=== PATIENT | male | born 1950 | race Caucasian/White ===

== ENCOUNTER 2016-12-14 09:29 | Emergency (ER) | payer MEDICARE ==
--- NOTE | 2016-12-14 09:44 | ERPHSYRPT ---
- History of Present Illness Time Seen by Provider: 12/14/16 09:44 Source: patient Exam Limitations: no limitations Physician History: 66 y/o male with history of downs syndrome, COPD and anemia comes to the ER with complaints of vomiting X 4 that started this morning. Pt had a difficult time sleeping last night and started vomiting this morning. Pt also was noted to have a low grade fever of 100. No abdominal pain, diarrhea or bloody stools. Pt has had UTIs in the past. Of note, patient arrived with an O2 sat of 90% on RA Timing/Duration: today Severity: moderate Associated Symptoms: nausea, vomiting Allergies/Adverse Reactions: No Known Drug Allergies Allergy (Verified 07/25/16 16:00) Home Medications: Albuterol 2.5 mg/0.5 ml [PROVENTIL Solution 2.5 MG/0.5 ML] 2.5 mg IH QID 01/30/15 [History] Aspirin 81 mg PO DAILY 01/30/15 [History] Budesonide 0.5 mg/2 ml [Pulmicort 0.5 mg/2 ml Respules] 0.5 mg IH BID 12/16 [History] Fluticasone Propionate [Flonase] 16 gm NS DAILY 01/30/15 [History] Ketoconazole [Nizoral] 120 ml TP WEEKLY 01/30/15 [History] Levetiracetam [Keppra] 1,000 mg PO BID 01/30/15 [History] Levothyroxine Sodium [Synthroid] 50 mcg PO DAILY 01/30/15 [History] Loratadine [Claritin] 10 mg PO DAILY 01/30/15 [History] Omeprazole [Prilosec] 20 mg PO DAILY 01/30/15 [History] Polyethylene Glycol 3350 17 gm [Miralax Powder 17GM PACKET] 17 gm PO DAILY [History] Quetiapine Fumarate 25 mg [Seroquel 25 MG] 25 mg PO HS 02/22/16 [History] Hx Tetanus, Diphtheria Vaccination/Date Given: Yes Hx Influenza Vaccination/Date Given: Yes Hx Pneumococcal Vaccination/Date Given: No - Review of Systems Constitutional: Fever, No Chills Eyes: No Symptoms Ears, Nose, & Throat: No Symptoms Respiratory: No Cough, No Dyspnea Cardiac: No Chest Pain, No Edema, No Syncope Abdominal/Gastrointestinal: Nausea, Vomiting, No Abdominal Pain, No Diarrhea Genitourinary Symptoms: No Dysuria Musculoskeletal: No Back Pain, No Neck Pain Skin: No Rash Neurological: No Dizziness, No Focal Weakness, No Sensory Changes Psychological: No Symptoms Endocrine: No Symptoms All Other Systems: Reviewed and Negative - Past Medical History Pertinent Past Medical History: Yes Neurological History: Dementia, Seizures, Other ENT History: No Pertinent History Cardiac History: Hypertension Respiratory History: COPD, Sleep Apnea Endocrine Medical History: Hypothyroidism Musculoskeletal History: No Pertinent History GI Medical History: GERD History: No Pertinent History Psycho-Social History: No Pertinent History Male Reproductive Disorders: No Pertinent History Other Medical History: ALLERGIES, Down Syndrome - Past Surgical History Past Surgical History: Yes Neuro Surgical History: No Pertinent History Cardiac: No Pertinent History Respiratory: No Pertinent History Gastrointestinal: No Pertinent History Genitourinary: No Pertinent History Musculoskeletal: No Pertinent History Male Surgical History: No Pertinent History Other Surgical History: TEETH REMOVED, toe growth removed, esophagus stretched - Social History Smoking Status: Never smoker Exposure to second hand smoke: No Drug Use: none Patient Lives Alone: No - Nursing Vital Signs Nursing Vital Signs: Initial Vital Signs Temperature 97.7 F Temperature Source Axillary Pulse Rate 88 Respiratory Rate 18 Blood Pressure 113/54 - Physical Exam General Appearance: no apparent distress, alert Eye Exam: PERRL/EOMI, eyes nml inspection Ears, Nose, Throat Exam: normal ENT inspection, TMs normal, pharynx normal, moist mucous membranes Neck Exam: normal inspection, non-tender, supple, full range of motion Respiratory Exam: normal breath sounds, lungs clear, No respiratory distress Cardiovascular Exam: regular rate/rhythm, normal heart sounds, normal peripheral pulses Gastrointestinal/Abdomen Exam: soft, normal bowel sounds, No tenderness, No mass Back Exam: normal inspection, normal range of motion, No CVA tenderness, No vertebral tenderness Extremity Exam: normal inspection, normal range of motion, pelvis stable Neurologic Exam: alert, cooperative, normal mood/affect, nml cerebellar function , nml station & gait, sensation nml, No motor deficits Skin Exam: normal color, warm, dry, No rash Lymphatic Exam: No adenopathy SpO2: 90 Ordered Tests: Active Orders 24 hr Category Date Time Status IV Insertion STAT Care 12/14/16 11:26 Active cath [Cath for Specimen-Straight] STAT Care 12/14/16 11:26 Active CHEST 2 VIEWS (PA AND LAT) Stat Exams 12/14/16 10:34 Completed KUB Stat Exams 12/14/16 10:02 Completed CBCD [CBC W DIFF] Stat Lab 12/14/16 11:20 Completed CMP Stat Lab 12/14/16 11:20 Completed INFLUENZA A+B Stat Lab 12/14/16 12:10 Completed Manual Differential NC Stat Lab 12/14/16 11:20 Completed UA W/RFX UR CULTURE Stat Lab 12/14/16 11:28 Completed Respiratory Nebulizer STAT RT 12/14/16 12:06 Completed Medication Summary Discontinued Medications Generic Name Dose Route Start Last Admin Trade Name Freq PRN Reason Stop Dose Admin Albuterol/Ipratropium 3 ml 12/14/16 12:06 12/14/16 12:24 Duoneb 0.5-3 Mg/3 Ml Neb IH 12/14/16 12:07 3 ml STAT ONE Administration Albuterol/Ipratropium Confirm 12/14/16 12:23 Duoneb 0.5-3 Mg/3 Ml Neb Administered 12/14/16 12:24 Dose 3 ml IH .STK-MED ONE Sodium Chloride 1,000 mls @ 999 mls/hr 12/14/16 10:02 12/14/16 11:23 Sodium Chloride 0.9% 1000 Ml IV 12/14/16 11:02 999 mls/hr .Q1H1M STA Administration Sodium Chloride Confirm 12/14/16 11:20 Sodium Chloride 0.9% 1000 Ml Administered 12/14/16 11:21 Dose 1,000 mls @ ud .ROUTE .STK-MED ONE Ondansetron HCl 4 mg 12/14/16 10:01 12/14/16 11:23 Zofran 4 Mg/2 Ml Vial IV 12/14/16 10:02 4 mg STAT ONE Administration Ondansetron HCl Confirm 12/14/16 11:20 Zofran 4 Mg/2 Ml Vial Administered 12/14/16 11:21 Dose 4 mg .ROUTE .STK-MED ONE Lab/Rad Data: Laboratory Result Diagrams 12/14/16 11:20 12/14/16 11:20 Laboratory Results 01/13/17 01/13/17 01/13/17 Range/Units 12:10 11:28 11:20 WBC (4.0-10.5) K/mm3 RBC (4.1-5.6) M/mm3 Hgb (12.5-18.0) gm/dl Hct (42-50) % MCV (78-100) fl MCH (26-32) pg MCHC (32-36) g/dl RDW (11.5-14.0) % Plt Count (150-450) K/mm3 MPV (6-9.5) fl Segmented Neutrophils (36.-66.) % Band Neutrophils (0.0-2.0) % Lymphocytes (Manual) (24-44) % Monocytes (Manual) (0.0-12.0) % Eosinophils (Manual) (0.00-3.0) % Basophils (Manual) (0.0-1.0) % Differential Comment Atypical Lymphocytes % Toxic Granulation Platelet Estimate (NORMAL) Anisocytosis Sodium 145 (136-145) mEq/L Potassium 3.6 (3.5-5.1) mEq/L Chloride 107 (98-107) mEq/L Carbon Dioxide 30.1 (21-32) mEq/L Anion Gap 11.1 (5-15) MEQ/L BUN 27 H (9-20) mg/dL Creatinine 1.71 H (0.55-1.30) mg/dl Estimated GFR 43 ML/MIN Glucose 95 (70-110) MG/DL Calcium 8.7 (8.5-10.1) mg/dL Total Bilirubin 0.5 (0.2-1.0) mg/dL AST 18 (15-37) U/L ALT 13 (12-78) U/L Alkaline Phosphatase 122 H (46-116) U/L Serum Total Protein 7.3 (6.4-8.2) gm/dL Albumin 3.1 L (3.4-5.0) g/dL Ur Collection Type VOID Urine Color YELLOW (YELLOW) Urine Appearance CLEAR (CLEAR) Urine pH 5.5 (5-6) Ur Specific [place] 1.015 (1.005-1.025) Urine Protein NEGATIVE (Negative) Urine Glucose (UA) NEGATIVE (NEGATIVE) mg/dL Urine Ketones NEGATIVE (NEGATIVE) Urine Nitrite NEGATIVE (NEGATIVE) Urine Bilirubin NEGATIVE (NEGATIVE) Urine Urobilinogen 0.2 (0-1) mg/dL Urine WBC (Auto) NEGATIVE (NEGATIVE) Urine RBC (Auto) NEGATIVE (0-5) Red/ul Influenza Type A Ag NEGATIVE (NEGATIVE) Influenza Type B Ag NEGATIVE (NEGATIVE) Specimen Received 12/14 1130 12/14/16 Range/Units 11:20 WBC 8.3 (4.0-10.5) K/mm3 RBC 4.30 (4.1-5.6) M/mm3 Hgb 13.8 (12.5-18.0) gm/dl Hct 41.7 L (42-50) % MCV 97.0 (78-100) fl MCH 32.1 H (26-32) pg MCHC 33.1 (32-36) g/dl RDW 14.2 H (11.5-14.0) % Plt Count 197 (150-450) K/mm3 MPV 9.3 (6-9.5) fl Segmented Neutrophils 36 (36.-66.) % Band Neutrophils 34 H (0.0-2.0) % Lymphocytes (Manual) 15 L (24-44) % Monocytes (Manual) 7 (0.0-12.0) % Eosinophils (Manual) 2 (0.00-3.0) % Basophils (Manual) 2 H (0.0-1.0) % Differential Comment ABNORMAL Atypical Lymphocytes 4 % Toxic Granulation 1+ Platelet Estimate NORMAL (NORMAL) Anisocytosis 1+ Sodium (136-145) mEq/L Potassium (3.5-5.1) mEq/L Chloride (98-107) mEq/L Carbon Dioxide (21-32) mEq/L Anion Gap (5-15) MEQ/L BUN (9-20) mg/dL Creatinine (0.55-1.30) mg/dl Estimated GFR ML/MIN Glucose (70-110) MG/DL Calcium (8.5-10.1) mg/dL Total Bilirubin (0.2-1.0) mg/dL AST (15-37) U/L ALT (12-78) U/L Alkaline Phosphatase (46-116) U/L Serum Total Protein (6.4-8.2) gm/dL Albumin (3.4-5.0) g/dL Ur Collection Type Urine Color (YELLOW) Urine Appearance (CLEAR) Urine pH (5-6) Ur Specific [place] (1.005-1.025) Urine Protein (Negative) Urine Glucose (UA) (NEGATIVE) mg/dL Urine Ketones (NEGATIVE) Urine Nitrite (NEGATIVE) Urine Bilirubin (NEGATIVE) Urine Urobilinogen (0-1) mg/dL Urine WBC (Auto) (NEGATIVE) Urine RBC (Auto) (0-5) Red/ul Influenza Type A Ag (NEGATIVE) Influenza Type B Ag (NEGATIVE) Specimen Received - Progress Progress: improved Progress Note: 12/14/16 12:04 Pt has received NS fluids and zofran with relief of symptoms. The BUN/Cr are elevated likely secondary to dehydration. The UA is normal. The CXR and KUB are unremarkable. Pt will get a swab swab and a duoneb prior to being discharged. 12/14/16 12:51 The influenza is negative. Pt will be d/c home on zofran ODT with a diagnosis of viral syndrome - Departure Time of Disposition: 12:52 Departure Disposition: Home Clinical Impression: Viral syndrome Condition: Stable Critical Care Time: No Instructions: Vomiting -- Adult, Viral Syndrome Additional Instructions: Return to the ER if you should have abdominal pain, nausea, vomiting, diarrhea, fever or chills. Prescriptions: Promethazine HCl 25 mg [Phenergan 25 mg] 25 mg PO Q6H PRN PRN #14 tablet PRN Reason: Nausea/Vomiting
[2016-12-14] MEDS ORDERED: Zofran 4 MG/2 ML VIAL IV ONE (10:01)
[2016-12-14] MEDS ORDERED: Sodium Chloride 0.9% 1000 ML 1,000 ML IV STA (10:02)
--- NOTE | 2016-12-14 10:35 | XRAY ---
Indication: Vomiting. Flu symptoms pain Comparison: April 12, 2011 KUB again demonstrates diffuse fecal stasis more than before without focal bowel dilatation or obstruction. Solid organs and lung bases unremarkable. Osseous structures intact with mild levoscoliosis.
--- NOTE | 2016-12-14 11:08 | XRAY ---
Indication: Low oxygenation. Comparison: September 18, 2016 AP/lateral chest less inflated today accentuating the cardiopulmonary structures. Again subtle right upper lung hazy airspace opacity without consolidation or large effusion. Heart is not enlarged. Bony thorax intact again with osteopenia and degenerative changes. Impression: Underinflated lungs with again right upper lung airspace disease.
[2016-12-14] MEDS ORDERED: Zofran 4 MG/2 ML VIAL ONE (11:20)
[2016-12-14] MEDS ORDERED: Sodium Chloride 0.9% 1000 ML 1,000 ML ONE (11:20)
[2016-12-14 11:25] LABS: Mean Corpuscular Hemoglobin 32.1 pg (26-32); Mean Platelet Volume 9.3 fl (6-9.5); Platelet Count 197 K/mm3 (150-450); Red Cell Distribution Width 14.2 % (11.5-14.0); White Blood Count 8.3 K/mm3 (4.0-10.5)
[2016-12-14 11:37] LABS: ADD URINE CULTURE? NO (NO); COMPLETE URINE MICROSCOPIC? NO; Collection Type VOID; Ph 5.5 (5-6)
[2016-12-14 11:46] LABS: ALBUMIN 3.1 g/dL (3.4-5.0); ANION GAP 11.1 MEQ/L (5-15); BILIRUBIN,TOTAL 0.5 mg/dL (0.2-1.0); Carbon Dioxide 30.1 mEq/L (21-32); Potassium 3.6 mEq/L (3.5-5.1); Total Protein 7.3 gm/dL (6.4-8.2)
[2016-12-14 11:55] LABS: ATYPICAL LYMPHS 4 %; BAND 34 % (0.0-2.0); Basophil 2 % (0.0-1.0); Eosinophil 2 % (0.00-3.0); Total Cells Counted 100
[2016-12-14 11:56] LABS: Platelet Estimate NORMAL (NORMAL)
[2016-12-14 11:57] LABS: ANISOCYTOSIS 1+; Toxic Granulation 1+
[2016-12-14] MEDS ORDERED: DUONEB 0.5-3 MG/3 ml Neb IH ONE ×2 (12:06→12:23)
[2016-12-14 12:56] VITALS: O2SAT 90
[2016-12-14 13:22] VITALS: BP 116/53; PULSE 72
== END 2016-12-14 13:22 | disposition home or self-care (01) ==
LOC: ED 09:29
DX: B34.9 Viral infection, unspecified (principal); R11.2 Nausea with vomiting, unspecified; R50.9 Fever, unspecified; F03.90 Unspecified dementia, unspecified severity, without behavioral disturbance, psychotic disturbance, mood disturbance, and anxiety; R56.9 Unspecified convulsions; I10 Essential (primary) hypertension; Z79.899 Other long term (current) drug therapy; E86.0 Dehydration; Q90.9 Down syndrome, unspecified
CPT/HCPCS: 96374; 99283; 36000; 96360; 36415; 85025; 80053; 87400; 81000; 71020; 74000; 94640; P9612; J2405

== ENCOUNTER 2017-09-25 13:20 | Emergency (ER) | payer MEDICARE ==
[2017-09-25] MEDS ORDERED: Sodium Chloride 0.9% 1000 ML 1,000 ML IV STA (13:44)
[2017-09-25] MEDS ORDERED: TYLENOL 325 MG PO ONE (13:47)
--- NOTE | 2017-09-25 13:56 | ERPHSYRPT ---
- History of Present Illness Time Seen by Provider: 09/25/17 13:51 Source: patient Exam Limitations: other (dementia, downs) Patient Subjective Stated Complaint: caregiver states pt had a seizure this morning and they are concerned because pt has diarrhea and fever since the seizure. pt has hx of down syndrome. Triage Nursing Assessment: pt pink, warm, dry. pt alert. abdomen soft. bowel sounds present in all 4 quads. Physician History: This is a 67-year-old white male with history of Down's, dementia, seizures, hypothyroidism, GERD. Patient was noted to have a seizure this morning at 9:15 AM lasting 2 minutes. Patient was also noted to have loose stools and a cough and a temperature at home. He arrives with a temperature of 101.6 rectally. He has not been vomiting. Patient does not speak to me nor does he move to command this is his normal state. Past medical history includes dementia, seizures, hypothyroidism, GERD, Down's syndrome. Past surgical history includes tonsils removed, bone growth removed, esophagus was stretched Timing/Duration: today (9:15 AM) Severity: moderate Modifying Factors: Improves With: nothing Associated Symptoms: cough, seizure (seizure times one this morning), other ( diarrhea today), No nausea, No vomiting, No abdominal pain, No shortness of breath, No heartburn, No diaphoresis, No chills, No chest pain, No fever, No headaches, No loss of appetite, No malaise, No rash, No syncope, No weakness Allergies/Adverse Reactions: No Known Drug Allergies Allergy (Verified 09/25/17 13:50) Home Medications: Albuterol 2.5 mg/0.5 ml [PROVENTIL Solution 2.5 MG/0.5 ML] 2.5 mg IH QID 01/30/15 [History] Aspirin 81 mg PO DAILY 01/30/15 [History] Budesonide 0.5 mg/2 ml [Pulmicort 0.5 mg/2 ml Respules] 0.5 mg IH BID 12/16 [History] Fluticasone Propionate [Flonase] 16 gm NS DAILY 01/30/15 [History] Ketoconazole [Nizoral] 120 ml TP WEEKLY 01/30/15 [History] Levetiracetam [Keppra] 1,000 mg PO BID 01/30/15 [History] Levothyroxine Sodium [Synthroid] 50 mcg PO DAILY 01/30/15 [History] Loratadine [Claritin] 10 mg PO DAILY 01/30/15 [History] Omeprazole [Prilosec] 20 mg PO DAILY 01/30/15 [History] Polyethylene Glycol 3350 17 gm [Miralax Powder 17GM PACKET] 17 gm PO DAILY [History] Quetiapine Fumarate 25 mg [Seroquel 25 MG] 100 mg PO HS 02/22/16 [History] Hx Tetanus, Diphtheria Vaccination/Date Given: Yes (up to date) Hx Influenza Vaccination/Date Given: No Hx Pneumococcal Vaccination/Date Given: No Immunizations Up to Date: Yes - Review of Systems Constitutional: Fever, No Chills, No Fatigue, No Lethargy, No Malaise, No Night Sweats, No Weakness, No Weight Loss Eyes: No Symptoms, No Discharge, No Eye Pain, No Eye Redness, No Itchy, No Photophobia, No Tearing, No Vision Changes, No Double Vision, No Foreign Body Sensation Ears, Nose, & Throat: No Symptoms, No Ear Pain, No Ear Discharge, No Hearing Changes, No Tinnitus, No Nose Pain, No Nose Congestion, No Nose Discharge, No Sinus Drainage, No Epistaxis, No Mouth Pain, No Mouth Swelling, No Loose Teeth, No Throat Pain, No Throat Swelling, No Hoarse, No Painful Swallowing, No Snoring , No Stridor Respiratory: Cough, No Cyanosis, No Dyspnea, No Dyspnea on Exertion (WOODARD), No Stridor, No Wheezing Cardiac: No Chest Pain, No Edema, No Syncope Abdominal/Gastrointestinal: Diarrhea, No Abdominal Pain, No Nausea, No Vomiting , No Constipation, No Hematemesis, No Hematochezia, No Melena, No Dysphagia, No Appetite Changes Genitourinary Symptoms: No Dysuria Musculoskeletal: No Back Pain, No Neck Pain Skin: No Rash Neurological: Seizure, No Dizziness, No Focal Weakness, No Gait Changes, No Headache, No Irritability, No Lethargy, No Paralysis, No Parasthesia, No Sensory Changes, No Speech Changes, No Tics, No Tremors, No Vertigo Psychological: No Symptoms Endocrine: No Symptoms All Other Systems: Reviewed and Negative - Past Medical History Pertinent Past Medical History: Yes Neurological History: Dementia, Seizures, Other ENT History: No Pertinent History Cardiac History: Hypertension Respiratory History: COPD, Sleep Apnea Endocrine Medical History: Hypothyroidism Musculoskeletal History: No Pertinent History GI Medical History: GERD History: No Pertinent History Psycho-Social History: No Pertinent History Male Reproductive Disorders: No Pertinent History Other Medical History: ALLERGIES, Down Syndrome - Past Surgical History Past Surgical History: Yes Neuro Surgical History: No Pertinent History Cardiac: No Pertinent History Respiratory: No Pertinent History Gastrointestinal: No Pertinent History Genitourinary: No Pertinent History Musculoskeletal: No Pertinent History Male Surgical History: No Pertinent History Other Surgical History: TEETH REMOVED, toe growth removed, esophagus stretched - Social History Smoking Status: Never smoker Exposure to second hand smoke: No Drug Use: none Patient Lives Alone: No - Nursing Vital Signs Nursing Vital Signs: Initial Vital Signs Temperature 101.6 F 09/25/17 13:20 Pulse Rate 104 H 09/25/17 13:20 Respiratory Rate 20 09/25/17 13:20 Blood Pressure 142/67 09/25/17 13:20 O2 Sat by Pulse Oximetry 90 L 09/25/17 13:20 Pain Scale Pain Intensity 0 - Physical Exam General Appearance: no apparent distress, alert Eye Exam: PERRL/EOMI, eyes nml inspection Ears, Nose, Throat Exam: normal ENT inspection, TMs normal, pharynx normal, moist mucous membranes Neck Exam: normal inspection, non-tender, supple, full range of motion Respiratory Exam: normal breath sounds, lungs clear, No respiratory distress Cardiovascular Exam: regular rate/rhythm, normal heart sounds, normal peripheral pulses Gastrointestinal/Abdomen Exam: soft, normal bowel sounds, No tenderness, No mass Back Exam: normal inspection, normal range of motion, No CVA tenderness, No vertebral tenderness Extremity Exam: normal inspection Neurologic Exam: alert, oriented x 3, cooperative, normal mood/affect, nml cerebellar function, nml station & gait, sensation nml, other (Patient chronically does not speak or move to command), No motor deficits Skin Exam: normal color, warm, dry, No rash Lymphatic Exam: No adenopathy SpO2 Interpretation: normal (90%) SpO2: 90 Oxygen Delivery: Room Air - Course Nursing assessment & vital signs reviewed: Yes - Radiology Exams Chest X-ray Interpretation: Discussed w/ radiologist (chest x-ray: Impression: 1. Mild patchy atelectasis and or infiltrate within the right infrahilar projection and retrocardiac region of the medial left lung base. Pneumonia is not excluded. 2. Other than a thin linear strand of scarring within the right mid lung field, the remainder of the lungs appear unremarkable. No other acute cardiopulmonary process is seen) Ordered Tests: Active Orders 24 hr Category Date Time Status Steam Box Operator STAT Care 09/25/17 13:43 Active Pulse Oximetry (ED) STAT Care 09/25/17 13:43 Active Saline Lock STAT Care 09/25/17 13:43 Active cath [Cath for Specimen-Straight] STAT Care 09/25/17 14:35 Active CHEST 1 VIEW (PORTABLE) Stat Exams 09/25/17 13:44 Taken BLOOD CULTURE Stat Lab 09/25/17 13:43 Received CBC W DIFF Stat Lab 09/25/17 13:55 Completed CMP Stat Lab 09/25/17 13:55 Completed CULTURE, THROAT Stat Lab 09/25/17 14:05 Received CULTURE,URINE Stat Lab 09/25/17 14:30 Received Lactic Acid Stat Lab 09/25/17 14:12 Completed PROTIME WITH INR Stat Lab 09/25/17 13:55 Completed PTT Stat Lab 09/25/17 13:55 Completed STREP SCREEN-BETA A Stat Lab 09/25/17 14:05 Completed UA Stat Lab 09/25/17 14:30 Completed Medication Summary Discontinued Medications Generic Name Dose Route Start Last Admin Trade Name Freq PRN Reason Stop Dose Admin Acetaminophen 650 mg 09/25/17 13:47 09/25/17 14:00 Tylenol 325 Mg PO 09/25/17 13:48 650 mg STAT ONE Administration Acetaminophen Confirm 09/25/17 14:04 Tylenol 325 Mg Administered 09/25/17 14:05 Dose 650 mg .ROUTE .STK-MED ONE Sodium Chloride 1,000 mls @ 999 mls/hr 09/25/17 13:44 09/25/17 14:09 Sodium Chloride 0.9% 1000 Ml IV 09/25/17 14:44 999 mls/hr .Q1H1M STA Administration Sodium Chloride Confirm 09/25/17 14:04 Sodium Chloride 0.9% 1000 Ml Administered 09/25/17 14:05 Dose 1,000 mls @ ud .ROUTE .STK-MED ONE Ceftriaxone Sodium/Dextrose 1 g in 50 mls @ 100 mls/hr 09/25/17 14:44 15:04 Rocephin 1 Gm-D5w 50 Ml Bag IV 09/25/17 15:13 100 mls/hr STAT STA Administration Ceftriaxone Sodium/Dextrose Confirm 09/25/17 14:57 Rocephin 1 Gm-D5w 50 Ml Bag Administered 09/25/17 14:58 Dose 1 g in 50 mls @ ud IV .STK-MED ONE Lab/Rad Data: Laboratory Result Diagrams 09/25/17 13:55 09/25/17 13:55 Laboratory Results 09/25/17 09/25/17 09/25/17 Range/Units 14:30 14:12 14:05 WBC (4.0-10.5) K/mm3 RBC (4.1-5.6) M/mm3 Hgb (12.5-18.0) gm/dl Hct (42-50) % MCV (78-100) fl MCH (26-32) pg MCHC (32-36) g/dl RDW (11.5-14.0) % Plt Count (150-450) K/mm3 MPV (6-9.5) fl Gran % (36.0-66.0) % Lymphocytes % (24.0-44.0) % Monocytes % (0.0-12.0) % Eosinophils % (0.00-5.0) % Basophils % (0.0-0.4) % Basophils # (0-0.4) INR (0.8-3.0) APTT (24.1-36.1) SECONDS Sodium (136-145) mEq/L Potassium (3.5-5.1) mEq/L Chloride (98-107) mEq/L Carbon Dioxide (21-32) mEq/L Anion Gap (5-15) MEQ/L BUN (9-20) mg/dL Creatinine (0.55-1.30) mg/dl Estimated GFR ML/MIN Glucose (70-110) MG/DL Lactic Acid 1.5 (0.4-2.0) Calcium (8.5-10.1) mg/dL Total Bilirubin (0.2-1.0) mg/dL AST (15-37) U/L ALT (12-78) U/L Alkaline Phosphatase (46-116) U/L Serum Total Protein (6.4-8.2) gm/dL Albumin (3.4-5.0) g/dL Ur Collection Type CATH Urine Color YELLOW (YELLOW) Urine Appearance CLEAR (CLEAR) Urine pH 7.0 (5-6) Ur Specific [place] 1.010 (1.005-1.025) Urine Protein NEGATIVE (Negative) Urine Ketones NEGATIVE (NEGATIVE) Urine Blood NEGATIVE (0-5) Red/ul Urine Nitrite NEGATIVE (NEGATIVE) Urine Bilirubin NEGATIVE (NEGATIVE) Urine Urobilinogen NORMAL (0-1) mg/dL Ur Leukocyte Esterase NEGATIVE (NEGATIVE) Urine Glucose NEGATIVE (NEGATIVE) mg/dL Influenza Type A Ag NEGATIVE (NEGATIVE) Influenza Type B Ag NEGATIVE (NEGATIVE) RSV (PCR) NEGATIVE (Negative) Streptococcus Screen (Negative) Specimen Received 09/25/17 1430 09/25/17 09/25/17 09/25/17 Range/Units 14:05 13:55 13:55 WBC (4.0-10.5) K/mm3 RBC (4.1-5.6) M/mm3 Hgb (12.5-18.0) gm/dl Hct (42-50) % MCV (78-100) fl MCH (26-32) pg MCHC (32-36) g/dl RDW (11.5-14.0) % Plt Count (150-450) K/mm3 MPV (6-9.5) fl Gran % (36.0-66.0) % Lymphocytes % (24.0-44.0) % Monocytes % (0.0-12.0) % Eosinophils % (0.00-5.0) % Basophils % (0.0-0.4) % Basophils # (0-0.4) INR 1.20 (0.8-3.0) APTT 33.6 (24.1-36.1) SECONDS Sodium 138 (136-145) mEq/L Potassium 3.8 (3.5-5.1) mEq/L Chloride 101 (98-107) mEq/L Carbon Dioxide 25.2 (21-32) mEq/L Anion Gap 15.4 H (5-15) MEQ/L BUN 17 (9-20) mg/dL Creatinine 1.42 H (0.55-1.30) mg/dl Estimated GFR 53 ML/MIN Glucose 114 H (70-110) MG/DL Lactic Acid (0.4-2.0) Calcium 8.6 (8.5-10.1) mg/dL Total Bilirubin 0.40 (0.2-1.0) mg/dL AST 21 (15-37) U/L ALT 18 (12-78) U/L Alkaline Phosphatase 165 H (46-116) U/L Serum Total Protein 8.6 H (6.4-8.2) gm/dL Albumin 3.4 (3.4-5.0) g/dL Ur Collection Type Urine Color (YELLOW) Urine Appearance (CLEAR) Urine pH (5-6) Ur Specific [place] (1.005-1.025) Urine Protein (Negative) Urine Ketones (NEGATIVE) Urine Blood (0-5) Red/ul Urine Nitrite (NEGATIVE) Urine Bilirubin (NEGATIVE) Urine Urobilinogen (0-1) mg/dL Ur Leukocyte Esterase (NEGATIVE) Urine Glucose (NEGATIVE) mg/dL Influenza Type A Ag (NEGATIVE) Influenza Type B Ag (NEGATIVE) RSV (PCR) (Negative) Streptococcus Screen NEGATIVE (Negative) Specimen Received 09/25/17 Range/Units 13:55 WBC 5.3 (4.0-10.5) K/mm3 RBC 4.73 (4.1-5.6) M/mm3 Hgb 15.1 (12.5-18.0) gm/dl Hct 44.9 (42-50) % MCV 94.9 (78-100) fl MCH 31.9 (26-32) pg MCHC 33.6 (32-36) g/dl RDW 13.4 (11.5-14.0) % Plt Count 151 (150-450) K/mm3 MPV 9.5 (6-9.5) fl Gran % 65.5 (36.0-66.0) % Lymphocytes % 16.6 L (24.0-44.0) % Monocytes % 17.1 H (0.0-12.0) % Eosinophils % 0.4 (0.00-5.0) % Basophils % 0.4 (0.0-0.4) % Basophils # 0.02 (0-0.4) INR (0.8-3.0) APTT (24.1-36.1) SECONDS Sodium (136-145) mEq/L Potassium (3.5-5.1) mEq/L Chloride (98-107) mEq/L Carbon Dioxide (21-32) mEq/L Anion Gap (5-15) MEQ/L BUN (9-20) mg/dL Creatinine (0.55-1.30) mg/dl Estimated GFR ML/MIN Glucose (70-110) MG/DL Lactic Acid (0.4-2.0) Calcium (8.5-10.1) mg/dL Total Bilirubin (0.2-1.0) mg/dL AST (15-37) U/L ALT (12-78) U/L Alkaline Phosphatase (46-116) U/L Serum Total Protein (6.4-8.2) gm/dL Albumin (3.4-5.0) g/dL Ur Collection Type Urine Color (YELLOW) Urine Appearance (CLEAR) Urine pH (5-6) Ur Specific [place] (1.005-1.025) Urine Protein (Negative) Urine Ketones (NEGATIVE) Urine Blood (0-5) Red/ul Urine Nitrite (NEGATIVE) Urine Bilirubin (NEGATIVE) Urine Urobilinogen (0-1) mg/dL Ur Leukocyte Esterase (NEGATIVE) Urine Glucose (NEGATIVE) mg/dL Influenza Type A Ag (NEGATIVE) Influenza Type B Ag (NEGATIVE) RSV (PCR) (Negative) Streptococcus Screen (Negative) Specimen Received - Progress Progress: improved Progress Note: 09/25/17 14:36 Septic screen is obtained on patient Lactate level is 1.5 white count 5.3 patient is not septic. Will await remaining labs patient has been given Tylenol IV fluids. 09/25/17 14:37 Patient is hemodynamically stable with a pulse ox ranging between 90-92% normal for him, blood pressure is stable. Patient with good capillary refill to extremities. 09/25/17 15:54 Patient looking markedly better after IV fluids Rocephin. Labs essentially normal. Awaiting official reading from radiologist for chest x-ray. Plan to discharge with Zithromax, Tylenol. - Departure Time of Disposition: 16:02 Departure Disposition: Home Clinical Impression: Bronchitis, Seizure Fever Qualifiers: Fever type: unspecified Qualified Code(s): R50.9 - Fever, unspecified Pneumonia Qualifiers: Pneumonia type: due to unspecified organism Laterality: bilateral Lung location : unspecified part of lung Qualified Code(s): J18.9 - Pneumonia, unspecified organism Condition: Fair Critical Care Time: No Referrals: GINNY STODDARD [Primary Care Provider] - Instructions: Fever (Symptom) -- Adult Additional Instructions: Return home. Plenty of fluids. Zithromax Z-TELLY as directed . Tylenol every 4 hours as needed for temperature greater than 100.5 Motrin every 6 hours as needed for temperature greater than 100.5. Follow-up with your family doctor. Return for acute distress or for severe symptoms. Prescriptions: Azithromycin 250 mg [Zithromax 250 MG TABLET] 250 mg PO ZPACK #6 tablet
[2017-09-25] MEDS ORDERED: TYLENOL 325 MG ONE (14:04)
[2017-09-25] MEDS ORDERED: Sodium Chloride 0.9% 1000 ML 1,000 ML ONE (14:04)
[2017-09-25 14:14] LABS: BASOPHIL % 0.4 % (0.0-0.4); Eosinophil % 0.4 % (0.00-5.0); Granulocytes % 65.5 % (36.0-66.0); Lymphocytes % 16.6 % (24.0-44.0); Mean Cell Volume 94.9 fl (78-100); Mean Corpuscular Hemoglobin 31.9 pg (26-32); Mean Platelet Volume 9.5 fl (6-9.5); Monocytes % 17.1 % (0.0-12.0); Platelet Count 151 K/mm3 (150-450); Red Blood Count 4.73 M/mm3 (4.1-5.6); Red Cell Distribution Width 13.4 % (11.5-14.0); White Blood Count 5.3 K/mm3 (4.0-10.5)
[2017-09-25 14:34] LABS: Bilirubin NEGATIVE (NEGATIVE); Blood NEGATIVE Ery/ul (0-5); COMPLETE URINE MICROSCOPIC? NO; Collection Type CATH; Glucose NEGATIVE (NEGATIVE); Leukocyte Esterase NEGATIVE (NEGATIVE)
[2017-09-25 14:44] LABS: ALBUMIN 3.4 g/dL (3.4-5.0); ANION GAP 15.4 MEQ/L (5-15); BILIRUBIN,TOTAL 0.4 mg/dL (0.2-1.0); Carbon Dioxide 25.2 mEq/L (21-32); Potassium 3.8 mEq/L (3.5-5.1); Total Protein 8.6 gm/dL (6.4-8.2)
[2017-09-25] MEDS ORDERED: ROCEPHIN 1 Gm-D5w 50 ml Bag** 1 G/50 ML IVPB IV STA (14:44)
[2017-09-25 14:45] LABS: INR 1.2 (0.8-3.0); PROTIME 13.4 SECONDS (8.83-12.87)
[2017-09-25 14:48] LABS: PTT 33.6 SECONDS (24.1-36.1)
[2017-09-25] MEDS ORDERED: ROCEPHIN 1 Gm-D5w 50 ml Bag** 1 G/50 ML IVPB IV ONE (14:57)
--- NOTE | 2017-09-25 15:57 | XRAY ---
Exam: AP upright portable chest film from 09/25/2017. Comparison: Two-view chest from 12/14/2016. Indication: Possible sepsis. Findings: The lungs are mildly hypoinflated. The transverse heart size appears within normal limits. There is mild subtle patchy retrocardiac and right infrahilar density which I believe represents atelectasis and/or infiltrate. I also note some minimal obliquely oriented linear scarring within the right midlung field extending medially to the right infrahilar projection. No vascular congestion, pneumothorax, or pleural fluid is seen. No acute osseous process is seen. Impression: 1. Mild patchy atelectasis and/or infiltrate within right infrahilar projection and retrocardiac region of medial left lung base. Pneumonia is not excluded. 2. Other than a thin linear strand of scarring within the right midlung field, the remainder of the lungs appears unremarkable. No other acute cardiopulmonary process is seen.
[2017-09-25 16:33] VITALS: BP 138/82; PULSE 77; O2SAT 95
== END 2017-09-25 16:32 | disposition home or self-care (01) ==
LOC: ED 13:20
DX: R50.9 Fever, unspecified (principal); J18.9 Pneumonia, unspecified organism; J40 Bronchitis, not specified as acute or chronic; R56.9 Unspecified convulsions; R19.7 Diarrhea, unspecified; Q90.9 Down syndrome, unspecified; E03.9 Hypothyroidism, unspecified; K21.9 Gastro-esophageal reflux disease without esophagitis; Z79.899 Other long term (current) drug therapy
CPT/HCPCS: 93041; 87040; 81002; 85610; 85730; 36415; 87430; 87070; 80177; 85025; 80053; 87086; 87631; 71010; 83605; P9612; 96360; 99284; J0696; A9270-GY

== ENCOUNTER 2018-01-02 07:02 | Observation (INO) | payer MEDICARE ==
[2018-01-02] MEDS ORDERED: PROVENTIL 2.5 MG/3 ML NEB IH ONE ×2 (07:26→07:31)
[2018-01-02] MEDS ORDERED: Sodium Chloride 0.9% 1000 ML 1,000 ML IV SCH (07:30)
--- NOTE | 2018-01-02 07:32 | ERPHSYRPT ---
- History of Present Illness Time Seen by Provider: 01/02/18 07:18 Source: family (niece) Patient Subjective Stated Complaint: caregiver states pt began running a fever and cough last pm. caregiver states she gave tylenol for fever last pm and tylenol at 0540 this morning. pt has down syndrome. Triage Nursing Assessment: pt pale, warm, dry. mouth dry. audible wheezes noted. Physician History: CC: fever Hx: 67 y/o mentally challenged man cared for at home by his niece. He has hx of COPD. 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 He has diarrhea. No vomiting. Decreased po intake. He is limited historian. Did not have flu vaccine. He has some wheezing and raspy breathing. 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: Acetaminophen Allergies/Adverse Reactions: No Known Drug Allergies Allergy (Verified 01/02/18 07:25) Home Medications: Albuterol 2.5 mg/0.5 ml [PROVENTIL Solution 2.5 MG/0.5 ML] 2.5 mg IH BID 01/30/15 [History] Aspirin 81 mg PO DAILY 01/30/15 [History] Budesonide 0.5 mg/2 ml [Pulmicort 0.5 mg/2 ml Respules] 0.5 mg IH BID 12/16 [History] Fluticasone Propionate [Flonase] 16 gm NS DAILY 01/30/15 [History] Ketoconazole [Nizoral] 120 ml TP WEEKLY 01/30/15 [History] Levetiracetam [Keppra] 1,000 mg PO BID 01/30/15 [History] Levothyroxine Sodium [Synthroid] 75 mcg PO DAILY 01/30/15 [History] Loratadine [Claritin] 10 mg PO DAILY 01/30/15 [History] Omeprazole [Prilosec] 20 mg PO DAILY 01/30/15 [History] Polyethylene Glycol 3350 17 gm [Miralax Powder 17GM PACKET] 17 gm PO DAILY [History] Quetiapine Fumarate 25 mg [Seroquel 25 MG] 25 mg PO HS 02/22/16 [History] Phenytoin Susp 125 mg/5 ml [Dilantin-125 SUSPENSION] 4 ml PO BID 01/02/18 [History] Hx Tetanus, Diphtheria Vaccination/Date Given: Yes (up to date) Hx Influenza Vaccination/Date Given: No Hx Pneumococcal Vaccination/Date Given: No Immunizations Up to Date: Yes - Review of Systems Constitutional: Fever, Fatigue, Malaise, Weakness Eyes: No Symptoms Respiratory: Cough, Wheezing Abdominal/Gastrointestinal: Diarrhea, No Vomiting Skin: No Rash All Other Systems: Unable due to condition - Past Medical History Pertinent Past Medical History: Yes Neurological History: Dementia, Seizures, Other ENT History: No Pertinent History Cardiac History: Hypertension Respiratory History: COPD, Sleep Apnea Endocrine Medical History: Hypothyroidism Musculoskeletal History: No Pertinent History GI Medical History: GERD History: No Pertinent History Psycho-Social History: No Pertinent History Male Reproductive Disorders: No Pertinent History Other Medical History: ALLERGIES, Down Syndrome - Past Surgical History Past Surgical History: Yes Neuro Surgical History: No Pertinent History Cardiac: No Pertinent History Respiratory: No Pertinent History Gastrointestinal: No Pertinent History Genitourinary: No Pertinent History Musculoskeletal: No Pertinent History Male Surgical History: No Pertinent History Other Surgical History: TEETH REMOVED, toe growth removed, esophagus stretched - Social History Smoking Status: Never smoker Exposure to second hand smoke: No Drug Use: none Patient Lives Alone: No (cared for at home by niece) - Nursing Vital Signs Nursing Vital Signs: Initial Vital Signs O2 Sat by Pulse Oximetry 99 01/02/18 07:05 - Physical Exam General Appearance: alert, other (dry mucous membranes) Eye Exam: PERRL/EOMI Neck Exam: supple Respiratory Exam: decreased breath sounds, rhonchi, wheezing Cardiovascular/Chest Exam: regular rate/rhythm Gastrointestinal/Abdominal Exam: soft, no distention Neurologic Exam: other (sleeping) Skin Exam: warm, dry, No rash SpO2 Interpretation: normal SpO2: 99 Oxygen Delivery: Room Air - Course Nursing assessment & vital signs reviewed: Yes - Radiology Exams cxr X-ray Interpretation: Teleradiologist Report, No Pneumonia Ordered Tests: Active Orders 24 hr Category Date Time Status Manager Of It STAT Care 01/02/18 07:25 Active IV Insertion STAT Care 01/02/18 07:25 Active Pulse Oximetry (ED) STAT Care 01/02/18 07:25 Active CHEST 1 VIEW (PORTABLE) Stat Exams 01/02/18 07:25 Completed BLOOD CULTURE Stat Lab 01/02/18 07:47 Received CBC W DIFF Stat Lab 01/02/18 07:47 Completed CMP Stat Lab 01/02/18 07:47 Completed CULTURE,URINE Stat Lab 01/02/18 07:25 Ordered DILANTIN(PHENYTOIN) Stat Lab 01/02/18 08:54 Ordered Lactic Acid Stat Lab 01/02/18 08:00 Completed PROTIME WITH INR Stat Lab 01/02/18 07:47 Completed PTT Stat Lab 01/02/18 07:47 Completed UA W/ MICROSCOPIC Stat Lab 01/02/18 07:25 Completed Respiratory Nebulizer STAT RT 01/02/18 07:26 Completed Medication Summary Generic Name Dose Route Start Last Admin Trade Name Freq PRN Reason Stop Dose Admin Sodium Chloride 1,000 mls @ 250 mls/hr 01/02/18 07:30 01/02/18 08:29 Sodium Chloride 0.9% 1000 Ml IV 02/01/18 07:29 250 mls/hr .Q4H KENDELL Administration Oseltamivir Phosphate 75 mg 01/02/18 10:00 Tamiflu 75mg Capsule PO 01/07/18 09:59 BID KENDELL Discontinued Medications Generic Name Dose Route Start Last Admin Trade Name Freq PRN Reason Stop Dose Admin Albuterol Sulfate 2.5 mg 01/02/18 07:26 01/02/18 07:47 Proventil 2.5 Mg/3 Ml Neb IH 01/02/18 07:27 2.5 mg STAT ONE Administration Albuterol Sulfate Confirm 01/02/18 07:31 Proventil 2.5 Mg/3 Ml Neb Administered 01/02/18 07:32 Dose 2.5 mg IH .STK-MED ONE Lab/Rad Data: Laboratory Result Diagrams 01/02/18 07:47 01/02/18 07:47 Laboratory Results 01/02/18 01/02/18 01/02/18 Range/Units 08:00 07:47 07:47 WBC (4.0-10.5) K/mm3 RBC (4.1-5.6) M/mm3 Hgb (12.5-18.0) gm/dl Hct (42-50) % MCV (78-100) fl MCH (26-32) pg MCHC (32-36) g/dl RDW (11.5-14.0) % Plt Count (150-450) K/mm3 MPV (6-9.5) fl Gran % (36.0-66.0) % Lymphocytes % (24.0-44.0) % Monocytes % (0.0-12.0) % Eosinophils % (0.00-5.0) % Basophils % (0.0-0.4) % Basophils # (0-0.4) INR 1.21 (0.8-3.0) APTT 35.1 (24.1-36.1) SECONDS Sodium 138 (136-145) mEq/L Potassium 3.7 (3.5-5.1) mEq/L Chloride 103 (98-107) mEq/L Carbon Dioxide 28.4 (21-32) mEq/L Anion Gap 10.4 (5-15) MEQ/L BUN 11 (9-20) mg/dL Creatinine 1.08 (0.55-1.30) mg/dl Estimated GFR > 60 ML/MIN Glucose 119 H (70-110) MG/DL Lactic Acid 1.2 (0.4-2.0) Calcium 8.5 (8.5-10.1) mg/dL Total Bilirubin 0.20 (0.2-1.0) mg/dL AST 38 H (15-37) U/L ALT 38 (12-78) U/L Alkaline Phosphatase 242 H (46-116) U/L Serum Total Protein 8.3 H (6.4-8.2) gm/dL Albumin 3.1 L (3.4-5.0) g/dL Ur Collection Type Urine Color (YELLOW) Urine Appearance (CLEAR) Urine pH (5-6) Ur Specific [place] (1.005-1.025) Urine Protein (Negative) Urine Ketones (NEGATIVE) Urine Blood (0-5) Red/ul Urine Nitrite (NEGATIVE) Urine Bilirubin (NEGATIVE) Urine Urobilinogen (0-1) mg/dL Ur Leukocyte Esterase (NEGATIVE) Urine Microscopic RBC (0-2) /HPF Urine Microscopic WBC (0-5) /HPF Ur Epithelial Cells (FEW) /HPF Urine Bacteria (NEGATIVE) /HPF Urine Glucose (NEGATIVE) mg/dL Influenza Type A Ag (NEGATIVE) Influenza Type B Ag (NEGATIVE) RSV (PCR) (Negative) Specimen Received 01/02/18 01/02/18 01/02/18 Range/Units 07:47 07:30 07:25 WBC 4.2 (4.0-10.5) K/mm3 RBC 4.49 (4.1-5.6) M/mm3 Hgb 14.2 (12.5-18.0) gm/dl Hct 42.3 (42-50) % MCV 94.2 (78-100) fl MCH 31.6 (26-32) pg MCHC 33.6 (32-36) g/dl RDW 13.6 (11.5-14.0) % Plt Count 221 (150-450) K/mm3 MPV 9.2 (6-9.5) fl Gran % 65.2 (36.0-66.0) % Lymphocytes % 16.7 L (24.0-44.0) % Monocytes % 14.8 H (0.0-12.0) % Eosinophils % 1.9 (0.00-5.0) % Basophils % 1.4 (0.0-0.4) % Basophils # 0.06 (0-0.4) INR (0.8-3.0) APTT (24.1-36.1) SECONDS Sodium (136-145) mEq/L Potassium (3.5-5.1) mEq/L Chloride (98-107) mEq/L Carbon Dioxide (21-32) mEq/L Anion Gap (5-15) MEQ/L BUN (9-20) mg/dL Creatinine (0.55-1.30) mg/dl Estimated GFR ML/MIN Glucose (70-110) MG/DL Lactic Acid (0.4-2.0) Calcium (8.5-10.1) mg/dL Total Bilirubin (0.2-1.0) mg/dL AST (15-37) U/L ALT (12-78) U/L Alkaline Phosphatase (46-116) U/L Serum Total Protein (6.4-8.2) gm/dL Albumin (3.4-5.0) g/dL Ur Collection Type VOID Urine Color STRAW (YELLOW) Urine Appearance CLEAR (CLEAR) Urine pH 7.0 (5-6) Ur Specific [place] 1.005 (1.005-1.025) Urine Protein 1+ (Negative) Urine Ketones NEGATIVE (NEGATIVE) Urine Blood 50 (0-5) Red/ul Urine Nitrite NEGATIVE (NEGATIVE) Urine Bilirubin NEGATIVE (NEGATIVE) Urine Urobilinogen NORMAL (0-1) mg/dL Ur Leukocyte Esterase 2+ (NEGATIVE) Urine Microscopic RBC 5-10 (0-2) /HPF Urine Microscopic WBC 50-100 (0-5) /HPF Ur Epithelial Cells MODERATE (FEW) /HPF Urine Bacteria FEW (NEGATIVE) /HPF Urine Glucose NEGATIVE (NEGATIVE) mg/dL Influenza Type A Ag NEGATIVE (NEGATIVE) Influenza Type B Ag POSITIVE (NEGATIVE) RSV (PCR) NEGATIVE (Negative) Specimen Received 01/02 845 - Progress Progress Note: 01/02/18 08:57 He is dehydrated and won't take po. HE has hx of Downs and progressive dementia. Niece does not feel like he will drink at home. Called Dr Mata (oc) and will place in obs. Discussed with : Esperanza ((oc)) Will see patient in: hospital (observation) Counseled pt/family regarding: lab results, diagnosis, need for follow-up, rad results - Departure Time of Disposition: 08:58 Departure Disposition: Observation Clinical Impression: Dehydration, Influenza B, Down syndrome, COPD (chronic obstructive pulmonary disease) Condition: Fair Critical Care Time: No Referrals: GINNY STODDARD [Primary Care Provider] - Instructions: Chronic Obstructive Pulmonary Disease
[2018-01-02 07:57] LABS: BASOPHIL % 1.4 % (0.0-0.4); Basophil (Absolute #) 0.06 (0-0.4); Eosinophil % 1.9 % (0.00-5.0); Eosinophil (Absolute #) 0.08 (0-0.5); Granulocyte Absolute (ANC) 2.72 (1.4-6.9); Granulocytes % 65.2 % (36.0-66.0); Hematocrit 42.3 % (42-50); Hemoglobin 14.2 gm/dl (12.5-18.0); Lymphocytes % 16.7 % (24.0-44.0); Mean Cell Volume 94.2 fl (78-100); Mean Corpuscular Hemoglobin 31.6 pg (26-32); Mean Corpuscular Hgb Concent. 33.6 g/dl (32-36); Mean Platelet Volume 9.2 fl (6-9.5); Monocyte (Absolute #) 0.62 (0.0-1.3); Monocytes % 14.8 % (0.0-12.0); Platelet Count 221 K/mm3 (150-450); Red Blood Count 4.49 M/mm3 (4.1-5.6); Red Cell Distribution Width 13.6 % (11.5-14.0); White Blood Count 4.2 K/mm3 (4.0-10.5)
[2018-01-02 08:11] LABS: INR 1.21 (0.8-3.0)
[2018-01-02 08:14] LABS: PTT 35.1 SECONDS (24.1-36.1)
[2018-01-02 08:22] LABS: ALBUMIN 3.1 g/dL (3.4-5.0); ALKALINE PHOSPHATASE 242 U/L (46-116); ANION GAP 10.4 MEQ/L (5-15); BLOOD UREA NITROGEN 11 mg/dL (9-20); CHLORIDE 103 mEq/L (98-107); Calcium 8.5 mg/dL (8.5-10.1); Carbon Dioxide 28.4 mEq/L (21-32); Creatinine 1 1.08 mg/dl (0.55-1.30); EST GLOMERULAR FILTRATION RATE > 60 ML/MIN; Glucose 119 MG/DL (70-110); Potassium 3.7 mEq/L (3.5-5.1); SGOT/AST 38 U/L (15-37); SGPT/ALT 38 U/L (12-78); SODIUM 138 mEq/L (136-145); Total Protein 8.3 gm/dL (6.4-8.2)
[2018-01-02 08:34] LABS: INFLUENZA A NEGATIVE (NEGATIVE)
[2018-01-02 08:35] LABS: INFLUENZA B POSITIVE (NEGATIVE); RESPIRATORY SYNCTIAL VIRUS NEGATIVE (Negative)
--- NOTE | 2018-01-02 08:49 | XRAY ---
Indication: Possible sepsis. Comparison: September 25, 2017. Portable chest unchanged again with prominent interstitial lung markings bilaterally greatest near the lung bases. No focal infiltrate, consolidation, or large effusion. Heart is not enlarged. Bony thorax intact. Impression: Stable nonacute underinflated chest.
[2018-01-02 08:54] LABS: Appearance CLEAR (CLEAR); Bacteria FEW /HPF (NEGATIVE); Bilirubin NEGATIVE (NEGATIVE); Blood 50 Ery/ul (0-5); Epithelial Cells MODERATE /HPF (FEW); Glucose NEGATIVE (NEGATIVE); Ketones NEGATIVE (NEGATIVE); Leukocyte Esterase 2+ (NEGATIVE); Nitrite NEGATIVE (NEGATIVE); Protein,Urine Dip 1+ (Negative); Specific Gravity 1.005 (1.005-1.025); Urobilinogen NORMAL mg/dL (0-1); WBC 50-100 /HPF (0-5)
[2018-01-02] MEDS ORDERED: ROCEPHIN 1 Gm-D5w 50 ml Bag** 1 G/50 ML IVPB IV STA (09:03)
[2018-01-02] MEDS ORDERED: ROCEPHIN 1 Gm-D5w 50 ml Bag** 1 G/50 ML IVPB IV ONE (09:09)
[2018-01-02] MEDS: Tamiflu 75MG Capsule PO SCH ×2 (09:12→21:26)
[2018-01-02] MEDS: DUONEB 0.5-3 MG/3 ml Neb IH SCH ×4 (10:36→23:57)
[2018-01-02] MEDS: PULMICORT 0.5 MG/2 ML RESPULES IH SCH ×3 (10:36→20:32)
[2018-01-02] MEDS: D5W/0.45NS W/ 20mEq KCl 1000 ML 1,000 ML IV SCH ×2 (12:25→21:27)
[2018-01-02] MEDS ORDERED: Ativan 2 MG/1 ML VIAL IV PRN (15:30)
[2018-01-02] MEDS ORDERED: PATIENT OWN MEDICATION PO ONE (16:00)
--- NOTE | 2018-01-02 20:15 | PCM.HP ---
History of Present Illness - Chief Complaint Chief Complaint: + flu B History of Present Illness: is a 67 year old male. - Review of Systems Constitutional: Fever, Weakness Respiratory: Cough Abdominal/Gastrointestinal: Appetite Changes All Other Systems: Unable due to dementia (and pt nonverbal) Medications & Allergies Home Medications: Home Medication List Albuterol 2.5 mg/0.5 ml [PROVENTIL Solution 2.5 MG/0.5 ML] 2.5 mg IH BID 01/30/15 [History Confirmed 01/02/18] Aspirin 81 mg PO DAILY 01/30/15 [History Confirmed 01/02/18] Budesonide 0.5 mg/2 ml [Pulmicort 0.5 mg/2 ml Respules] 0.5 mg IH BID 12/16 [History Confirmed 01/02/18] Fluticasone Propionate [Flonase] 16 gm NS DAILY 01/30/15 [History Confirmed 12/19] Ketoconazole [Nizoral] 120 ml TP WEEKLY 01/30/15 [History Confirmed 01/02/18] Levetiracetam [Keppra] 1,000 mg PO BID 01/30/15 [History Confirmed 01/02/18] Levothyroxine Sodium [Synthroid] 75 mcg PO DAILY 01/30/15 [History Confirmed 12/19] Loratadine [Claritin] 10 mg PO DAILY 01/30/15 [History Confirmed 01/02/18] Omeprazole [Prilosec] 20 mg PO DAILY 01/30/15 [History Confirmed 01/02/18] Polyethylene Glycol 3350 17 gm [Miralax Powder 17GM PACKET] 17 gm PO DAILY [History Confirmed 01/02/18] Quetiapine Fumarate 25 mg [Seroquel 25 MG] 25 mg PO HS 02/22/16 [History Confirmed 01/02/18] Phenytoin Susp 125 mg/5 ml [Dilantin-125 SUSPENSION] 4 ml PO BID 01/02/18 [History Confirmed 01/02/18] Allergies/Adverse Reactions: Allergies Allergy/AdvReac Type Severity Reaction Status Date / Time No Known Drug Allergies Allergy Verified 01/02/18 07:25 - Past Medical History Past Medical History: Yes Neurological History: Dementia, Seizures, Other ENT History: No Pertinent History Cardiac History: Hypertension Respiratory History: COPD, Sleep Apnea Endocrine Medical History: Hypothyroidism Musculoskelatal History: No Pertinent History GI Medical History: GERD History: No Pertinent History Pyscho-Social History: No Pertinent History Male Reproductive Disorders: No Pertinent History Comment: ALLERGIES, Down Syndrome - Past Surgical History Past Surgical History: Yes Neuro Surgical History: No Pertinent History Cardiac History: No Pertinent History Respiratory Surgery: No Pertinent History GI Surgical History: No Pertinent History Genitourinary Surgical Hx: No Pertinent History Musculskeletal Surgical Hx: No Pertinent History Male Surgical History: No Pertinent History Other Surgical History: TEETH REMOVED, toe growth removed, esophagus stretched - Social History Smoking Status: Never smoker Exposure to second hand smoke: No Alcohol: None Drug Use: none - Physical Exam Vital Signs: Vital Signs - 24 hr Temp Pulse Resp BP Pulse Ox 01/02/18 20:00 98.4 F 75 17 142/64 94 L 01/02/18 16:00 97.9 F 67 18 98/53 97 01/02/18 15:25 60 20 97 01/02/18 10:41 62 18 94 L 01/02/18 10:34 99.5 F 67 20 135/60 92 L 01/02/18 09:58 99.5 F 67 135/60 01/02/18 09:56 99.5 F 67 20 135/60 92 L 01/02/18 09:47 99.5 F 67 20 135/60 92 L 01/02/18 09:17 68 18 98/49 01/02/18 08:59 99 01/02/18 08:05 67 20 121/67 01/02/18 07:52 73 18 97 01/02/18 07:14 75 24 127/62 99 01/02/18 07:05 99 General Appearance: no apparent distress, alert Neurologic Exam: other (seems slightly afraid of me during exam) Eye Exam: eyes nml inspection (Down's) Ears, Nose, Throat Exam: moist mucous membranes Respiratory Exam: diminished breath sounds, wheezing (slight LLL wheeze), No crackles/rales, No rhonchi Cardiovascular Exam: regular rate/rhythm, normal heart sounds, No murmur Gastrointestinal/Abdomen Exam: soft, No tenderness Back Exam: normal inspection, No rash Results - Labs Lab/Micro Results: Lab Results-Last 24 Hours 01/02/18 Range/Units 10:54 Prealbumin 17.3 L (18.0-35.7) mg/dL - Other Procedures and Tests Respiratory Therapy 01/02/18 11:00 Respiratory Nebulizer Q4H 01/02/18 19:00 Respiratory Nebulizer BID Assessment/Plan (1) UTI (urinary tract infection) Current Visit: Yes Status: Acute Assessment & Plan: On IV rocephin Code(s): N39.0 - URINARY TRACT INFECTION, SITE NOT SPECIFIED (2) Dehydration Current Visit: Yes Status: Acute Assessment & Plan: improved; urinated x 1 Code(s): E86.0 - DEHYDRATION (3) Down syndrome Current Visit: Yes Status: Chronic Code(s): Q90.9 - DOWN SYNDROME, UNSPECIFIED (4) Influenza B Current Visit: Yes Status: Acute Assessment & Plan: on tamiflu. sl wheezy Code(s): J10.1 - FLU DUE TO OTH IDENT INFLUENZA VIRUS W OTH RESP MANIFEST (5) COPD (chronic obstructive pulmonary disease) Current Visit: Yes Status: Chronic (6) History of seizure disorder Current Visit: No Status: Chronic Assessment & Plan: some partial sz here; gave 500mg keppra extra this p.m. dilantin level ok Code(s): Z86.69 - PERSONAL HISTORY OF DIS OF THE NERVOUS SYS AND SENSE ORGANS
[2018-01-02] MEDS: Seroquel 25 MG PO SCH (21:26)
[2018-01-02] MEDS: DILANTIN PO SCH (21:26)
[2018-01-02] MEDS: PATIENT OWN MEDICATION PO SCH (21:27)
[2018-01-02] MEDS ORDERED: KEPPRA 500 MG PO SCH (22:00)
[2018-01-02] MEDS ORDERED: PROVENTIL Solution 2.5 MG/0.5 ML IH PRN (22:00)
[2018-01-02] MEDS ORDERED: LEVETIRACETAM 1000 MG PO SCH (22:00)
[2018-01-03] MEDS: TYLENOL 325 MG PO PRN ×2 (01:12→19:49)
[2018-01-03] MEDS: DUONEB 0.5-3 MG/3 ml Neb IH SCH ×6 (03:40→23:40)
[2018-01-03] MEDS: D5W/0.45NS W/ 20mEq KCl 1000 ML 1,000 ML IV SCH ×3 (05:38→21:25)
[2018-01-03 06:21] LABS: ANION GAP 9.8 MEQ/L (5-15); BLOOD UREA NITROGEN 8 mg/dL (9-20); CHLORIDE 107 mEq/L (98-107); Calcium 8.2 mg/dL (8.5-10.1); Creatinine 1 0.99 mg/dl (0.55-1.30); EST GLOMERULAR FILTRATION RATE > 60 ML/MIN; Glucose 93 MG/DL (70-110); Potassium 4.2 mEq/L (3.5-5.1); SODIUM 140 mEq/L (136-145)
[2018-01-03] MEDS: PULMICORT 0.5 MG/2 ML RESPULES IH SCH (07:20)
--- NOTE | 2018-01-03 09:20 | PCM.NOTE ---
Date and Time: 01/03/18915 Subjective Assessment: He appears to be feeling better. Told Respiratory to get out this morning! Eating fairly well. AFebrile overnight. Objective Exam General Appearance: no apparent distress, alert Neurologic Exam: other (MR/non verbal) Skin Exam: normal color, warm, dry, No rash Respiratory Exam: lungs clear, diminished breath sounds, No crackles/rales, No rhonchi, No wheezing Cardiovascular Exam: regular rate/rhythm, normal heart sounds, No murmur Gastrointestinal/Abdomen Exam: soft, normal bowel sounds, No tenderness Extremity Exam: normal inspection, No pedal edema, No swelling OBJECTIVE DATA Vital Signs: Vital Signs - 24 hr Temp Pulse Resp BP Pulse Ox 01/03/18 08:00 97.6 F 65 18 186/72 97 01/03/18 07:20 72 18 01/03/18 06:16 98.2 F 01/03/18 04:00 98.2 F 55 L 18 113/57 98 01/03/18 03:25 55 L 16 94 L 01/03/18 03:20 55 L 18 94 L 01/03/18 00:00 99.2 F 71 20 140/89 94 L 01/02/18 23:30 70 18 96 01/02/18 20:00 98.4 F 69 17 142/64 97 01/02/18 16:00 97.9 F 67 18 98/53 97 01/02/18 15:25 60 20 97 01/02/18 10:41 62 18 94 L 01/02/18 10:34 99.5 F 67 20 135/60 92 L 01/02/18 09:58 99.5 F 67 135/60 01/02/18 09:56 99.5 F 67 20 135/60 92 L 01/02/18 09:47 99.5 F 67 20 135/60 92 L 01/02/18 09:17 68 18 98/49 Pain Assessment - Last Documented Pain Intensity 0 Pain Scale Used [facility] Intake and Output: Intake & Output 12/31/17 01/01/18 01/02/18 01/03/18 11:59 11:59 11:59 11:59 Intake Total 2930 Output Total 575 Balance 2355 Weight 49 kg 51.1 kg Lab Results: Lab Results-Last 24 Hours 01/02/18 01/03/18 Range/Units 10:54 05:40 Sodium 140 (136-145) mEq/L Potassium 4.2 (3.5-5.1) mEq/L Chloride 107 (98-107) mEq/L Carbon Dioxide 27.0 (21-32) mEq/L Anion Gap 9.8 (5-15) MEQ/L BUN 8 L (9-20) mg/dL Creatinine 0.99 (0.55-1.30) mg/dl Estimated GFR > 60 ML/MIN Glucose 93 (70-110) MG/DL Calcium 8.2 L (8.5-10.1) mg/dL Prealbumin 17.3 L (18.0-35.7) mg/dL Assessment/Plan (1) UTI (urinary tract infection) Current Visit: Yes Status: Acute Qualifiers: Urinary tract infection type: acute cystitis Assessment & Plan: On IV rocephin Code(s): N39.0 - URINARY TRACT INFECTION, SITE NOT SPECIFIED (2) Dehydration Current Visit: Yes Status: Resolved Code(s): E86.0 - DEHYDRATION (3) Down syndrome Current Visit: Yes Status: Chronic Code(s): Q90.9 - DOWN SYNDROME, UNSPECIFIED (4) Influenza B Current Visit: Yes Status: Acute Assessment & Plan: On tamiflu Code(s): J10.1 - FLU DUE TO OTH IDENT INFLUENZA VIRUS W OTH RESP MANIFEST (5) COPD (chronic obstructive pulmonary disease) Current Visit: Yes Status: Chronic Qualifiers: COPD type: chronic bronchitis (6) History of seizure disorder Current Visit: No Status: Chronic Assessment & Plan: Had a few seizures when admitted, stable now. Dilantin level was just over 10. Added an extra dose of keppra yesterday, but back to home dosing today. He did have large seizures in Oct/Nov and the dilantin was added at that time. Code(s): Z86.69 - PERSONAL HISTORY OF DIS OF THE NERVOUS SYS AND SENSE ORGANS (7) Leukopenia Current Visit: Yes Status: Acute Assessment & Plan: On admission WBC were 4.2, now 1.6 so pt put in reverse isolation. Could be from the flu virus. Recheck in a.m. Code(s): D72.819 - DECREASED WHITE BLOOD CELL COUNT, UNSPECIFIED
[2018-01-03] MEDS: Tamiflu 75MG Capsule PO SCH ×2 (10:00→21:14)
[2018-01-03] MEDS: ROCEPHIN 1 Gm-D5w 50 ml Bag** 1 G/50 ML IVPB IV SCH (10:00)
[2018-01-03] MEDS: Flonase NASAL NS SCH (10:00)
[2018-01-03] MEDS ORDERED: NON-FORMULARY ITEM (Loratadine [Claritin] 10 MG) PO SCH (10:00)
[2018-01-03] MEDS: SYNTHROID 75 MCG PO SCH (10:00)
[2018-01-03] MEDS: Miralax Powder 17GM PACKET PO SCH (10:00)
[2018-01-03] MEDS: PATIENT OWN MEDICATION PO SCH ×2 (10:00→21:13)
[2018-01-03] MEDS ORDERED: SYNTHROID 100 MCG PO SCH (10:00)
[2018-01-03] MEDS: Protonix 40MG Tablet PO SCH (10:00)
[2018-01-03] MEDS ORDERED: NON-FORMULARY ITEM (Aspirin [Aspirin] 81 MG) PO SCH (10:00)
[2018-01-03] MEDS ORDERED: NON-FORMULARY ITEM (Omeprazole [Prilosec] 20 MG) PO SCH (10:00)
[2018-01-03] MEDS: DILANTIN PO SCH ×2 (11:00→21:11)
[2018-01-03] MEDS: CLARITIN 10 MG PO SCH (11:00)
[2018-01-03] MEDS: ENOXAPARIN SODIUM SQ SCH (13:06)
[2018-01-03] MEDS: ECOTRIN 81 MG PO SCH (13:14)
[2018-01-03 13:52] LABS: Slide Review NO
[2018-01-03] MEDS: Seroquel 25 MG PO SCH (21:14)
[2018-01-04] MEDS: DUONEB 0.5-3 MG/3 ml Neb IH SCH ×3 (04:20→11:15)
[2018-01-04 06:02] LABS: Granulocyte Absolute (ANC) 0.55 (1.4-6.9); Hematocrit 38.4 % (42-50); Hemoglobin 12.5 gm/dl (12.5-18.0); Mean Cell Volume 95.8 fl (78-100); Mean Corpuscular Hgb Concent. 32.6 g/dl (32-36); Mean Platelet Volume 9.5 fl (6-9.5); Platelet Count 148 K/mm3 (150-450); Red Blood Count 4.01 M/mm3 (4.1-5.6); Red Cell Distribution Width 13.9 % (11.5-14.0); White Blood Count 2.2 K/mm3 (4.0-10.5)
[2018-01-04 06:21] LABS: Mean Corpuscular Hemoglobin 31.1 pg (26-32)
[2018-01-04 06:46] LABS: ANION GAP 11.5 MEQ/L (5-15); BLOOD UREA NITROGEN 5 mg/dL (9-20); CHLORIDE 106 mEq/L (98-107); Calcium 8.3 mg/dL (8.5-10.1); Carbon Dioxide 26.8 mEq/L (21-32); Creatinine 1 0.92 mg/dl (0.55-1.30); EST GLOMERULAR FILTRATION RATE > 60 ML/MIN; Glucose 112 MG/DL (70-110); SODIUM 139 mEq/L (136-145)
[2018-01-04 06:54] LABS: BAND 2 % (0.0-2.0); Basophil 1 % (0.0-1.0); Eosinophil 1 % (0.00-3.0); Lymphocytes 54 % (24-44); Monocyte 12 % (0.0-12.0); Neutrophils 30 % (36.-66.); Platelet Estimate NORMAL (NORMAL); Total Cells Counted 100
[2018-01-04] MEDS: D5W/0.45NS W/ 20mEq KCl 1000 ML 1,000 ML IV SCH (07:20)
[2018-01-04 07:28] VITALS: BP 156/78
[2018-01-04] MEDS: PULMICORT 0.5 MG/2 ML RESPULES IH SCH (07:42)
[2018-01-04 08:27] VITALS: O2SAT 95
[2018-01-04] MEDS: ENOXAPARIN SODIUM SQ SCH (10:20)
[2018-01-04] MEDS: Protonix 40MG Tablet PO SCH (10:20)
[2018-01-04] MEDS: ECOTRIN 81 MG PO SCH (10:20)
[2018-01-04] MEDS: ROCEPHIN 1 Gm-D5w 50 ml Bag** 1 G/50 ML IVPB IV SCH (10:20)
[2018-01-04] MEDS: PATIENT OWN MEDICATION PO SCH (10:20)
[2018-01-04] MEDS: SYNTHROID 75 MCG PO SCH (10:20)
[2018-01-04] MEDS: CLARITIN 10 MG PO SCH (10:20)
[2018-01-04] MEDS: DILANTIN PO SCH (10:20)
[2018-01-04] MEDS: Miralax Powder 17GM PACKET PO SCH (11:23)
[2018-01-04] MEDS: Flonase NASAL NS SCH (11:23)
[2018-01-04] MEDS: Tamiflu 75MG Capsule PO SCH (11:28)
[2018-01-04 11:46] VITALS: PULSE 65
--- NOTE | 2018-01-04 11:50 | PCM.DCORD ---
- Discharge Discharge Date: 01/04/18 Disposition: HOME HEALTH SERVICE Condition: Good Prescriptions: New Oseltamivir 75 mg [Tamiflu 75MG Capsule] 75 mg PO BID 3 Days #5 cap Continue Budesonide 0.5 mg/2 ml [Pulmicort 0.5 mg/2 ml Respules] 0.5 mg IH BID Albuterol 2.5 mg/0.5 ml [PROVENTIL Solution 2.5 MG/0.5 ML] 2.5 mg IH BID Fluticasone Propionate [Flonase] 16 gm NS DAILY Polyethylene Glycol 3350 17 gm [Miralax Powder 17GM PACKET] 17 gm PO DAILY Aspirin 81 mg PO DAILY Omeprazole [Prilosec] 20 mg PO DAILY Loratadine [Claritin] 10 mg PO DAILY Levothyroxine Sodium [Synthroid] 75 mcg PO DAILY Levetiracetam [Keppra] 1,000 mg PO BID Ketoconazole [Nizoral] 120 ml TP WEEKLY Quetiapine Fumarate 25 mg [Seroquel 25 MG] 25 mg PO HS Phenytoin Susp 125 mg/5 ml [Dilantin-125 SUSPENSION] 4 ml PO BID Instructions: Chronic Obstructive Pulmonary Disease Additional Instructions: Obtain CBC with diff prior to follow up appointment with Dr Somers Follow up with: GINNY SOMERS [Primary Care Provider] - Call for Appointment FRANCE ARZATE [ACTIVE STAFF] - 01/09/18 11:15 am
--- NOTE | 2018-01-07 09:09 | SSS ---
DISCHARGE DIAGNOSES: 1) INFLUENZA B. 2) DEHYDRATION. 3) DOWN SYNDROME. HISTORY OF PRESENT ILLNESS: The patient is a 67 year-old white male who apparently began having a fever and having a cough. He was brought into the emergency room and diagnosed with influenza B. He was admitted to the hospital for IV fluid hydration. PAST MEDICAL/SURGICAL HISTORY: Again significant for the Down's syndrome. He has history of seizures, hypothyroid, dementia. HOME MEDICATIONS: Currently include Albuterol, aspirin, Pulmicort, fluticasone, ketoconazole, Keppra, levothyroxine, Claritin, Prilosec, MiraLAX, Seroquel, Dilantin. ALLERGIES: NKDA. PHYSICAL EXAMINATION: Revealed a mildly obese white male patient with neurologic deficits due to Down syndrome. His most recent vital signs showed temperature 98.4F, pulse 73, respiratory rate 22, blood pressure 149/65. O2 saturation 95% on room air. HEENT: Normocephalic, atraumatic. Pupils equal round reactive to light. Extraocular movements intact. Oropharynx is pink and moist. NECK: Supple without lymphadenopathy, thyromegaly or JVD. CHEST: Clear to auscultation. HEART: Regular rate and rhythm without murmurs, rubs or gallops. ABDOMEN: Soft, nontender, nondistended without hepatosplenomegaly or masses. EXTREMITIES: Without clubbing, cyanosis or edema. NEUROLOGIC: No obvious focal deficits are noted. His caregiver was by the bedside with him at this time. LAB DATA AND TESTS: Showed his white blood cell count drop to 1,600 and rebounded to 2,200 on 01/04/2018 with no left shift. There were 2 bands and 30 polys, 54% lymphocytes. His metabolic panel showed glucose 112, BUN 5, creatinine 0.92. Electrolytes were normal. HOSPITAL COURSE: At this time the patient's caregiver feels that he would do better in the home and would like to take him home. We are in agreement with this. We are suggesting him to continue his Tamiflu for a total of [address] Muller in [place] and we are going to see about getting him rechecked on his blood count before he goes for his visit to see if his white blood cell count has improved prior to him to being exposed at the doctor's office. Otherwise they are free to call us at any time or bring him back to the hospital if he has any worsening of his symptoms.
== END 2018-01-04 12:52 | disposition home health service (06) ==
LOC: ED 07:02 → MED SURG 09:39
PROVIDERS: ADMIT Family Medicine; ATTEND Family Medicine
DX: J10.1 Influenza due to other identified influenza virus with other respiratory manifestations (principal); E86.0 Dehydration; N39.0 Urinary tract infection, site not specified; Q90.9 Down syndrome, unspecified; J44.9 Chronic obstructive pulmonary disease, unspecified; Z86.69 Personal history of other diseases of the nervous system and sense organs; E03.9 Hypothyroidism, unspecified; F03.90 Unspecified dementia, unspecified severity, without behavioral disturbance, psychotic disturbance, mood disturbance, and anxiety; Z79.899 Other long term (current) drug therapy; D72.819 Decreased white blood cell count, unspecified
CPT/HCPCS: 93041; 96365; 99285; 36000; 87040; 81000; 85610; 85730; 36415 ×3; 80185; 85027; 85025 ×2; 80048 ×2; 80053; 84134; 87086; 87631; 71045; 94640 ×6; 94760 ×3; 83605; P9612; G0378; J0696; J1650; A9270-GY

== ENCOUNTER 2018-03-01 10:30 | Emergency (ER) | payer MEDICARE ==
[2018-03-01] MEDS ORDERED: Sodium Chloride 0.9% 1000 ML 1,000 ML IV STA (10:59)
[2018-03-01] MEDS ORDERED: Phenergan 25 MG INJ IV ONE (10:59)
[2018-03-01] MEDS ORDERED: Zithromax 500 MG/ 250 ML NaCl Premix 500 MG/250 ML IVPB IV STA (11:02)
[2018-03-01] MEDS ORDERED: ROCEPHIN 1 Gm-D5w 50 ml Bag** 1 G/50 ML IVPB IV STA (11:02)
[2018-03-01] MEDS ORDERED: PROVENTIL 2.5 MG/3 ML NEB IH ONE ×2 (11:02→12:47)
--- NOTE | 2018-03-01 11:09 | ERPHSYRPT ---
- History of Present Illness Time Seen by Provider: 03/01/18 10:50 Source: family (NIECE) Exam Limitations: no limitations Patient Subjective Stated Complaint: pt live in wound care nurse reports pt had v/d sat and -reports that has resolved but pt has been increasing less appetite and activity level-pt unable to answer questions for himself-normal for pt Triage Nursing Assessment: pt pale warm and dry-alert for pt-resp nonlabored- slight cough noted during triage-abd soft and no reaction with palp Physician History: THREE DAYS AGO PT STARTED WITH FEVER UP TO 102 DEGREES, A NON-PRODUCTIVE COUGH, VOMITING & DIARRHEA. THE VOMITING & DIARRHEA ONLY LASTED FOR ABOUT 1 DAY. TODAY PT IS GENERALLY WEAK WITH LESS APPETITE AND DECREASED ACTIVITY. PT HAS DEMENTIA AND DOWN'S SYNDROME AND LIVES WITH HIS NIECE. Allergies/Adverse Reactions: No Known Drug Allergies Allergy (Verified 03/01/18 10:47) Home Medications: Albuterol 2.5 mg/0.5 ml [PROVENTIL Solution 2.5 MG/0.5 ML] 2.5 mg IH BID 01/30/15 [History] Aspirin 81 mg PO DAILY 01/30/15 [History] Budesonide 0.5 mg/2 ml [Pulmicort 0.5 mg/2 ml Respules] 0.5 mg IH BID 12/16 [History] Fluticasone Propionate [Flonase] 16 gm NS DAILY 01/30/15 [History] Ketoconazole [Nizoral] 120 ml TP WEEKLY 01/30/15 [History] Levetiracetam [Keppra] 1,000 mg PO BID 01/30/15 [History] Levothyroxine Sodium [Synthroid] 75 mcg PO DAILY 01/30/15 [History] Loratadine [Claritin] 10 mg PO DAILY 01/30/15 [History] Omeprazole [Prilosec] 20 mg PO DAILY 01/30/15 [History] Polyethylene Glycol 3350 17 gm [Miralax Powder 17GM PACKET] 17 gm PO DAILY [History] Quetiapine Fumarate 25 mg [Seroquel 25 MG] 25 mg PO HS 02/22/16 [History] Phenytoin Susp 125 mg/5 ml [Dilantin-125 SUSPENSION] 4 ml PO BID 01/02/18 [History] Hx Tetanus, Diphtheria Vaccination/Date Given: Yes Hx Influenza Vaccination/Date Given: No Hx Pneumococcal Vaccination/Date Given: No Immunizations Up to Date: Yes - Review of Systems Constitutional: Fever, Weakness (GENERALIZED), Other (DECREASED ACTIVITY) Respiratory: Cough Abdominal/Gastrointestinal: Vomiting, Diarrhea, Appetite Changes (DECREASED) All Other Systems: Reviewed and Negative - Past Medical History Pertinent Past Medical History: Yes Neurological History: Dementia, Seizures, Other ENT History: No Pertinent History Cardiac History: Hypertension Respiratory History: COPD, Sleep Apnea Endocrine Medical History: Hypothyroidism Musculoskeletal History: No Pertinent History GI Medical History: GERD History: No Pertinent History Psycho-Social History: No Pertinent History Male Reproductive Disorders: No Pertinent History Other Medical History: ALLERGIES, Down Syndrome - Past Surgical History Past Surgical History: Yes Neuro Surgical History: No Pertinent History Cardiac: No Pertinent History Respiratory: No Pertinent History Gastrointestinal: No Pertinent History Genitourinary: No Pertinent History Musculoskeletal: No Pertinent History Male Surgical History: No Pertinent History Other Surgical History: TEETH REMOVED, toe growth removed, esophagus stretched - Social History Smoking Status: Never smoker Exposure to second hand smoke: No Drug Use: none Patient Lives Alone: No - Nursing Vital Signs Nursing Vital Signs: Initial Vital Signs Temperature 98.1 F 03/01/18 10:41 Pulse Rate 86 03/01/18 10:41 Respiratory Rate 20 03/01/18 10:41 Blood Pressure 156/92 03/01/18 10:41 O2 Sat by Pulse Oximetry 92 L 03/01/18 10:41 Pain Scale Pain Intensity 0 - Physical Exam General Appearance: lethargy Eye Exam: other (PERRL) Ears, Nose, Throat Exam: dry mucous membranes, pharyngeal erythema (MILD) Neck Exam: normal inspection Respiratory Exam: wheezing (MILD ) Cardiovascular Exam: normal heart sounds Gastrointestinal/Abdomen Exam: soft, other (B.S. MILDLY HYPERACTIVE AND NORMOTONIC) Extremity Exam: No pedal edema Neurologic Exam: other (LETHARGIC) Skin Exam: warm, dry SpO2 Interpretation: hypoxic SpO2: 92 Oxygen Delivery: Room Air - Course Nursing assessment & vital signs reviewed: Yes EKG Interpreted by Me: RATE (72), Sinus Rhythm, NORMAL AXIS, Non-specific ST Changes - Radiology Exams Chest X-ray Interpretation: Interpreted by me (BILATERAL INFILTRATES) - CT Exams Abdomen/Pelvis CT Interpretation: Tele-radiologist Report (FINDINGS SUGGESTIVE OF OBSTIPATION. CIRCUMFERENTIAL THICKENING OF THE DISTAL ESOPHAGUS AT THE LEVEL OF THE GE JUNCTION COULD BE DUE TO INFLAMMATION OR PERHAPS MUCOSAL LESION. THERE ARE FINDINGS SUGGESTIVE OF PRIOR JANICE FUNDOPLICATION. BILATERAL LOWER LUNGS PARTIALLY VISUALIZED RETICULAR AND CONFLUENT OPACIFICATIONS MAY BE DUE TO AN INFECTIOUS/INFLAMMATORY PROCESS. SMALL DEPENDENT RIGHT PLEURAL EFFUSION.) Ordered Tests: Active Orders 24 hr Category Date Time Status Cath for Specimen-Straight STAT Care 03/01/18 11:02 Active EKG-ER Only STAT Care 03/01/18 11:07 Active IV Insertion STAT Care 03/01/18 10:59 Active Oxygen-ED Only NASAL CANNULA 2 lpm Care 03/01/18 11:02 Active Pulse Oximetry (ED) STAT Care 03/01/18 11:02 Active ABDOMEN AND PELVIS W/0 CONTRAS [CT] Stat Exams 03/01/18 11:09 Taken CHEST 1 VIEW (PORTABLE) Stat Exams 03/01/18 10:59 Taken AMYLASE Stat Lab 03/01/18 12:00 Completed BLOOD CULTURE Stat Lab 03/01/18 12:10 Received CBC W DIFF Stat Lab 03/01/18 12:00 Completed CMP Stat Lab 03/01/18 12:00 Completed CULTURE, THROAT Stat Lab 03/01/18 12:00 Received CULTURE,SPUTUM Stat Lab 03/01/18 11:06 Uncollected D-DIMER QUANTITATION Stat Lab 03/01/18 12:00 Completed LIPASE Stat Lab 03/01/18 12:00 Completed MAGNESIUM Stat Lab 03/01/18 12:00 Completed Manual Differential NC Stat Lab 03/01/18 12:00 Completed [place] Screen Stat Lab 03/01/18 12:00 Completed NT PRO BNP Stat Lab 03/01/18 12:00 Completed PROTIME WITH INR Stat Lab 03/01/18 12:00 Completed PTT Stat Lab 03/01/18 12:00 Completed STREP SCREEN-BETA A Stat Lab 03/01/18 12:00 Completed TROPONIN Q3H Lab 03/01/18 12:00 Completed TROPONIN Q3H Lab 03/01/18 14:15 Ordered TROPONIN Q3H Lab 03/01/18 17:15 Ordered TROPONIN Q3H Lab 03/01/18 20:15 Ordered TROPONIN Q3H Lab 03/01/18 23:15 Ordered UA W/ MICROSCOPIC Stat Lab 03/01/18 12:15 Completed Respiratory Nebulizer STAT RT 03/01/18 11:07 Active Medication Summary Discontinued Medications Generic Name Dose Route Start Last Admin Trade Name Wicho PRN Reason Stop Dose Admin Albuterol Sulfate 2.5 mg 03/01/18 11:02 03/01/18 12:48 Proventil 2.5 Mg/3 Ml Neb IH 03/01/18 11:03 2.5 mg STAT ONE Administration Albuterol Sulfate Confirm 03/01/18 12:47 Proventil 2.5 Mg/3 Ml Neb Administered 03/01/18 12:48 Dose 2.5 mg IH .STK-MED ONE Ceftriaxone Sodium/Dextrose 1 g in 50 mls @ 100 mls/hr 03/01/18 11:02 12:04 Rocephin 1 Gm-D5w 50 Ml Bag IV 03/01/18 11:31 100 mls/hr STAT STA Administration Sodium Chloride 1,000 mls @ 999 mls/hr 03/01/18 10:59 03/01/18 12:04 Sodium Chloride 0.9% 1000 Ml IV 03/01/18 11:59 999 mls/hr .Q1H1M STA Administration Azithromycin 500 mg in 250 mls @ 250 mls/hr 03/01/18 11:02 03/01/18 13:33 Zithromax 500 Mg/ 250 Ml Nacl Premix IV 03/01/18 12:01 250 mls/hr STAT STA Administration Sodium Chloride Confirm 03/01/18 12:04 Sodium Chloride 0.9% 1000 Ml Administered 03/01/18 12:05 Dose 1,000 mls @ ud .ROUTE .STK-MED ONE Ceftriaxone Sodium/Dextrose Confirm 03/01/18 12:04 Rocephin 1 Gm-D5w 50 Ml Bag Administered 03/01/18 12:05 Dose 1 g in 50 mls @ ud IV .STK-MED ONE Azithromycin Confirm 03/01/18 13:13 Zithromax 500 Mg/ 250 Ml Nacl Premix Administered 03/01/18 13:14 Dose 500 mg in 250 mls @ ud IV .STK-MED ONE Promethazine HCl 12.5 mg 03/01/18 10:59 03/01/18 12:05 Phenergan 25 Mg Inj IV 03/01/18 11:00 12.5 mg STAT ONE Administration Promethazine HCl Confirm 03/01/18 12:04 Phenergan 25 Mg Inj Administered 03/01/18 12:05 Dose 25 mg .ROUTE .STK-MED ONE Lab/Rad Data: Laboratory Result Diagrams 03/01/18 12:00 03/01/18 12:00 Laboratory Results 03/01/18 03/01/18 03/01/18 Range/Units 12:15 12:00 12:00 WBC (4.0-10.5) K/mm3 RBC (4.1-5.6) M/mm3 Hgb (12.5-18.0) gm/dl Hct (42-50) % MCV (78-100) fl MCH (26-32) pg MCHC (32-36) g/dl RDW (11.5-14.0) % Plt Count (150-450) K/mm3 MPV (6-9.5) fl Absolute Granulocytes (1.4-6.9) PT (8.83-12.87) SECONDS INR (0.8-3.0) APTT (24.1-36.1) SECONDS D-Dimer (215-500) ng/mL Sodium (137-145) mmol/L Potassium (3.5-5.1) mmol/L Chloride (98-107) mmol/L Carbon Dioxide (22-30) mmol/L Anion Gap (5-15) MEQ/L BUN (9-20) mg/dL Creatinine (0.66-1.25) mg/dL Estimated GFR ML/MIN Glucose (74-106) mg/dL Calcium (8.4-10.2) mg/dL Magnesium (1.6-2.3) mg/dL Total Bilirubin (0.2-1.3) mg/dL AST (17-59) U/L ALT (0-50) U/L Alkaline Phosphatase (38-126) U/L Troponin I (0.000-0.034) ng/mL NT-Pro-B Natriuret Pep (0-900) pg/mL Serum Total Protein (6.3-8.2) g/dL Albumin (3.5-5.0) g/dL Amylase (30-110) U/L Lipase (23-300) U/L Ur Collection Type CLEAN CATCH Urine Color YELLOW (YELLOW) Urine Appearance CLEAR (CLEAR) Urine pH 5.0 (5-6) Ur Specific Cable 1.015 (1.005-1.025) Urine Protein 30 (Negative) Urine Ketones NEGATIVE (NEGATIVE) Urine Blood 5-10 (0-5) Red/ul Urine Nitrite NEGATIVE (NEGATIVE) Urine Bilirubin NEGATIVE (NEGATIVE) Urine Urobilinogen 1 (0-1) mg/dL Ur Leukocyte Esterase NEGATIVE (NEGATIVE) Urine Microscopic RBC 0-2 (0-2) /HPF Urine Microscopic WBC 0-2 (0-5) /HPF Ur Epithelial Cells FEW (FEW) /HPF Urine Bacteria FEW (NEGATIVE) /HPF Urine Mucus SLIGHT (NEGATIVE) /HPF Urine Culture Reflexed NO (NO) Urine Glucose NEGATIVE (NEGATIVE) mg/dL Monoscreen NEGATIVE (Negative) Influenza Type A Ag NEGATIVE (NEGATIVE) Influenza Type B Ag NEGATIVE (NEGATIVE) RSV (PCR) NEGATIVE (Negative) Streptococcus Screen (Negative) Specimen Received 03-01-18 1215 03/01/18 03/01/18 03/01/18 Range/Units 12:00 12:00 12:00 WBC (4.0-10.5) K/mm3 RBC (4.1-5.6) M/mm3 Hgb (12.5-18.0) gm/dl Hct (42-50) % MCV (78-100) fl MCH (26-32) pg MCHC (32-36) g/dl RDW (11.5-14.0) % Plt Count (150-450) K/mm3 MPV (6-9.5) fl Absolute Granulocytes (1.4-6.9) PT 15.4 H (8.83-12.87) SECONDS INR 1.38 (0.8-3.0) APTT 37.5 H (24.1-36.1) SECONDS D-Dimer 1098.99 H* (215-500) ng/mL Sodium (137-145) mmol/L Potassium (3.5-5.1) mmol/L Chloride (98-107) mmol/L Carbon Dioxide (22-30) mmol/L Anion Gap (5-15) MEQ/L BUN (9-20) mg/dL Creatinine (0.66-1.25) mg/dL Estimated GFR ML/MIN Glucose (74-106) mg/dL Calcium (8.4-10.2) mg/dL Magnesium (1.6-2.3) mg/dL Total Bilirubin (0.2-1.3) mg/dL AST (17-59) U/L ALT (0-50) U/L Alkaline Phosphatase (38-126) U/L Troponin I < 0.012 (0.000-0.034) ng/mL NT-Pro-B Natriuret Pep (0-900) pg/mL Serum Total Protein (6.3-8.2) g/dL Albumin (3.5-5.0) g/dL Amylase (30-110) U/L Lipase (23-300) U/L Ur Collection Type Urine Color (YELLOW) Urine Appearance (CLEAR) Urine pH (5-6) Ur Specific Cable (1.005-1.025) Urine Protein (Negative) Urine Ketones (NEGATIVE) Urine Blood (0-5) Red/ul Urine Nitrite (NEGATIVE) Urine Bilirubin (NEGATIVE) Urine Urobilinogen (0-1) mg/dL Ur Leukocyte Esterase (NEGATIVE) Urine Microscopic RBC (0-2) /HPF Urine Microscopic WBC (0-5) /HPF Ur Epithelial Cells (FEW) /HPF Urine Bacteria (NEGATIVE) /HPF Urine Mucus (NEGATIVE) /HPF Urine Culture Reflexed (NO) Urine Glucose (NEGATIVE) mg/dL Monoscreen (Negative) Influenza Type A Ag (NEGATIVE) Influenza Type B Ag (NEGATIVE) RSV (PCR) (Negative) Streptococcus Screen NEGATIVE (Negative) Specimen Received 03/01/18 03/01/18 03/01/18 Range/Units 12:00 12:00 12:00 WBC 10.4 (4.0-10.5) K/mm3 RBC 4.64 (4.1-5.6) M/mm3 Hgb 15.1 (12.5-18.0) gm/dl Hct 46.4 (42-50) % MCV 100.0 (78-100) fl MCH 32.5 H (26-32) pg MCHC 32.5 (32-36) g/dl RDW 15.4 H (11.5-14.0) % Plt Count 183 (150-450) K/mm3 MPV 10.0 H (6-9.5) fl Absolute Granulocytes 8.18 H (1.4-6.9) PT (8.83-12.87) SECONDS INR (0.8-3.0) APTT (24.1-36.1) SECONDS D-Dimer (215-500) ng/mL Sodium 147 H (137-145) mmol/L Potassium 3.9 (3.5-5.1) mmol/L Chloride 107 (98-107) mmol/L Carbon Dioxide 29 (22-30) mmol/L Anion Gap 15.4 H (5-15) MEQ/L BUN 27 H (9-20) mg/dL Creatinine 1.07 (0.66-1.25) mg/dL Estimated GFR > 60 ML/MIN Glucose 126 H (74-106) mg/dL Calcium 8.9 (8.4-10.2) mg/dL Magnesium 2.3 (1.6-2.3) mg/dL Total Bilirubin 0.50 (0.2-1.3) mg/dL AST 25 (17-59) U/L ALT 22 (0-50) U/L Alkaline Phosphatase 237 H (38-126) U/L Troponin I (0.000-0.034) ng/mL NT-Pro-B Natriuret Pep 242 (0-900) pg/mL Serum Total Protein 8.0 (6.3-8.2) g/dL Albumin 3.7 (3.5-5.0) g/dL Amylase 46 (30-110) U/L Lipase 11 L (23-300) U/L Ur Collection Type Urine Color (YELLOW) Urine Appearance (CLEAR) Urine pH (5-6) Ur Specific Cable (1.005-1.025) Urine Protein (Negative) Urine Ketones (NEGATIVE) Urine Blood (0-5) Red/ul Urine Nitrite (NEGATIVE) Urine Bilirubin (NEGATIVE) Urine Urobilinogen (0-1) mg/dL Ur Leukocyte Esterase (NEGATIVE) Urine Microscopic RBC (0-2) /HPF Urine Microscopic WBC (0-5) /HPF Ur Epithelial Cells (FEW) /HPF Urine Bacteria (NEGATIVE) /HPF Urine Mucus (NEGATIVE) /HPF Urine Culture Reflexed (NO) Urine Glucose (NEGATIVE) mg/dL Monoscreen (Negative) Influenza Type A Ag (NEGATIVE) Influenza Type B Ag (NEGATIVE) RSV (PCR) (Negative) Streptococcus Screen (Negative) Specimen Received - Progress Discussed with : Other (SPOKE WITH DR VIVEROS([id number]) WHO ACCEPTED PT FOR TRANSFER TO [facility] ER. SPOKE TO DR RICE(ER [id number]) WHO ACCEPTED PT FOR TRANSFER TO [facility] ER.) - Departure Time of Disposition: 14:00 Departure Disposition: Transfer ([facility]) Clinical Impression: BILATERAL PNEUMONIA, VOMITING, DIARRHEA, ELEVATED D-DIMER, DOWN'S SYNDROME, DEMENTIA, SEIZURE DISORDER, HYPOTHYROIDISM, GERD, HTN, COPD Condition: Stable Critical Care Time: No Referrals: GINNY STODDARD [Primary Care Provider] -
[2018-03-01] MEDS ORDERED: ROCEPHIN 1 Gm-D5w 50 ml Bag** 1 G/50 ML IVPB IV ONE (12:04)
[2018-03-01] MEDS ORDERED: Sodium Chloride 0.9% 1000 ML 1,000 ML ONE (12:04)
[2018-03-01] MEDS ORDERED: Phenergan 25 MG INJ ONE (12:04)
[2018-03-01 12:20] LABS: Granulocyte Absolute (ANC) 8.18 (1.4-6.9); Hematocrit 46.4 % (42-50); Hemoglobin 15.1 gm/dl (12.5-18.0); Mean Corpuscular Hemoglobin 32.5 pg (26-32); Mean Corpuscular Hgb Concent. 32.5 g/dl (32-36); Platelet Count 183 K/mm3 (150-450); Red Blood Count 4.64 M/mm3 (4.1-5.6); Red Cell Distribution Width 15.4 % (11.5-14.0); White Blood Count 10.4 K/mm3 (4.0-10.5)
[2018-03-01 12:36] LABS: INR 1.38 (0.8-3.0)
[2018-03-01 12:39] LABS: PTT 37.5 SECONDS (24.1-36.1)
[2018-03-01 12:42] LABS: ALBUMIN 3.7 g/dL (3.5-5.0); ALKALINE PHOSPHATASE 237 U/L (38-126); AMYLASE 46 U/L (30-110); ANION GAP 15.4 MEQ/L (5-15); BLOOD UREA NITROGEN 27 mg/dL (9-20); CHLORIDE 107 mmol/L (98-107); Calcium 8.9 mg/dL (8.4-10.2); Carbon Dioxide 29 mmol/L (22-30); Creatinine 1 1.07 mg/dL (0.66-1.25); Glucose 126 mg/dL (74-106); LIPASE 11 U/L (23-300); Potassium 3.9 mmol/L (3.5-5.1); SGOT/AST 25 U/L (17-59); SGPT/ALT 22 U/L (0-50); SODIUM 147 mmol/L (137-145)
[2018-03-01 12:43] LABS: INFLUENZA A NEGATIVE (NEGATIVE); INFLUENZA B NEGATIVE (NEGATIVE); RESPIRATORY SYNCTIAL VIRUS NEGATIVE (Negative)
[2018-03-01 12:44] LABS: Appearance CLEAR (CLEAR); Bacteria FEW /HPF (NEGATIVE); Bilirubin NEGATIVE (NEGATIVE); Epithelial Cells FEW /HPF (FEW); Glucose NEGATIVE (NEGATIVE); Ketones NEGATIVE (NEGATIVE); Leukocyte Esterase NEGATIVE (NEGATIVE); Mucus SLIGHT /HPF (NEGATIVE); Nitrite NEGATIVE (NEGATIVE); Protein,Urine Dip 30 (Negative); Specific Gravity 1.015 (1.005-1.025); Urobilinogen 1 mg/dL (0-1); WBC 0-2 /HPF (0-5)
[2018-03-01 12:50] VITALS: BP 99/54; PULSE 70
[2018-03-01] MEDS ORDERED: Zithromax 500 MG/ 250 ML NaCl Premix 500 MG/250 ML IVPB IV ONE (13:13)
[2018-03-01 13:24] LABS: D-DIMER QUANTITATION 1098.99 ng/mL (215-500)
[2018-03-01 13:34] VITALS: O2SAT 92
[2018-03-01 14:44] LABS: BAND 1 % (0.0-2.0); Lymphocytes 14 % (24-44); Monocyte 3 % (0.0-12.0); Neutrophils 82 % (36.-66.); Total Cells Counted 100
[2018-03-01 14:45] LABS: Platelet Estimate NORMAL (NORMAL)
--- NOTE | 2018-03-01 22:50 | XRAY ---
Indication: Nausea, vomiting, and diarrhea. Down syndrome. Multiple contiguous axial images obtained through the abdomen and pelvis without contrast as ordered. Comparison: None Lung bases demonstrates diffuse bilateral airspace disease with small right effusion. Heart is not enlarged. Small hiatal hernia. Noncontrasted stomach and bowel loops appear nonobstructed. There is marked diffuse scattered colonic fecal debris throughout. No free fluid/air. Hepatic/splenic calcified granulomas. Remaining liver, gallbladder, pancreas, spleen, adrenal glands, kidneys, ureters, bladder, and aorta appear unremarkable for noncontrast exam. Osseous structures intact with mild degenerative changes throughout the spine and moderate levorotoscoliosis centered at L2. Impression: 1. Marked fecal stasis without obstruction. 2. Small hiatal hernia. 3. Bilateral lower lung airspace disease with small right effusion. Comment: Preliminary interpretation was made by C. No critical discrepancy. CTDI 9.65
--- NOTE | 2018-03-01 22:50 | XRAY ---
Indication: Nausea, vomiting, diarrhea. Comparison: January 02, 2018. Portable chest demonstrates new diffuse bilateral airspace disease with small right effusion. Heart and mediastinal structures within normal limits. Bony thorax intact.
== END 2018-03-01 16:51 | disposition short-term general hospital (02) ==
LOC: ED 10:30
DX: J18.9 Pneumonia, unspecified organism (principal); R11.10 Vomiting, unspecified; R19.7 Diarrhea, unspecified; R79.1 Abnormal coagulation profile; Q90.9 Down syndrome, unspecified; F03.90 Unspecified dementia, unspecified severity, without behavioral disturbance, psychotic disturbance, mood disturbance, and anxiety; G40.909 Epilepsy, unspecified, not intractable, without status epilepticus; E03.9 Hypothyroidism, unspecified; K21.9 Gastro-esophageal reflux disease without esophagitis; I10 Essential (primary) hypertension; J44.9 Chronic obstructive pulmonary disease, unspecified; Z79.899 Other long term (current) drug therapy
CPT/HCPCS: 36000; 36415; 71045; 74176; 80053; 81000; 82150; 83690; 83735; 83880; 84484; 85025; 85379; 85610; 85730; 86308; 87040; 87070; 87430; 87631; 93005; 94640; 96360; 96361; 96365; 96366; 96374; 99285; P9612; J0456; J0696; J2550; A9270-GY

== ENCOUNTER 2018-03-20 10:33 | Emergency (ER) | payer MEDICARE ==
--- NOTE | 2018-03-20 11:02 | ERPHSYRPT ---
- History of Present Illness Time Seen by Provider: 03/20/18 10:47 Source: patient Exam Limitations: no limitations Physician History: The patient is a 67-year-old male brought in by healthcare workers with the complaint that he had blood-tinged urine this morning. They also noted some blood without urine in his underwear 2 times this morning as well. The patient has Down syndrome and does not communicate effectively. His healthcare providers state that nothing out of the ordinary is obvious today besides the blood in the urine. There is been no vomiting. He normally is incontinent of urine during the day as long as there are established times for urination. Overnight he frequently is incontinent. His past medical history is significant for Down syndrome, seizure disorder, COPD. Timing/Duration: today Activites at Onset: none Severity of Pain-Max: none Severity of Pain-Current: none Modifying Factors: Improves With: nothing Associated Symptoms: nocturia, other (hematuria) Prior abdominal problems: none Sexual intercourse history: non-contributory Allergies/Adverse Reactions: No Known Drug Allergies Allergy (Verified 03/20/18 10:56) Home Medications: Albuterol 2.5 mg/0.5 ml [PROVENTIL Solution 2.5 MG/0.5 ML] 2.5 mg IH BID 01/30/15 [History] Aspirin 81 mg PO DAILY 01/30/15 [History] Budesonide 0.5 mg/2 ml [Pulmicort 0.5 mg/2 ml Respules] 0.5 mg IH BID 12/16 [History] Fluticasone Propionate [Flonase] 16 gm NS DAILY 01/30/15 [History] Levetiracetam [Keppra] 1,000 mg PO BID 01/30/15 [History] Levothyroxine Sodium [Synthroid] 75 mcg PO DAILY 01/30/15 [History] Loratadine [Claritin] 10 mg PO DAILY 01/30/15 [History] Omeprazole [Prilosec] 20 mg PO DAILY 01/30/15 [History] Polyethylene Glycol 3350 17 gm [Miralax Powder 17GM PACKET] 17 gm PO DAILY [History] Quetiapine Fumarate 25 mg [Seroquel 25 MG] 25 mg PO HS 02/22/16 [History] Phenytoin Susp 125 mg/5 ml [Dilantin-125 SUSPENSION] 4 ml PO BID 01/02/18 [History] Hx Tetanus, Diphtheria Vaccination/Date Given: Yes Hx Influenza Vaccination/Date Given: No Hx Pneumococcal Vaccination/Date Given: No - Past Medical History Pertinent Past Medical History: Yes Neurological History: Dementia, Seizures, Other ENT History: No Pertinent History Cardiac History: Hypertension Respiratory History: COPD, Sleep Apnea Endocrine Medical History: Hypothyroidism Musculoskeletal History: No Pertinent History GI Medical History: GERD History: No Pertinent History Psycho-Social History: No Pertinent History Male Reproductive Disorders: No Pertinent History Other Medical History: ALLERGIES, Down Syndrome - Past Surgical History Past Surgical History: Yes Neuro Surgical History: No Pertinent History Cardiac: No Pertinent History Respiratory: No Pertinent History Gastrointestinal: No Pertinent History Genitourinary: No Pertinent History Musculoskeletal: No Pertinent History Male Surgical History: No Pertinent History Other Surgical History: TEETH REMOVED, toe growth removed, esophagus stretched - Social History Smoking Status: Never smoker Exposure to second hand smoke: No Drug Use: none Patient Lives Alone: No - Review of Systems Constitutional: No Fever, No Chills Eyes: No Symptoms Ears, Nose, & Throat: No Symptoms Respiratory: No Cough, No Dyspnea Cardiac: No Chest Pain, No Edema, No Syncope Abdominal/Gastrointestinal: No Abdominal Pain, No Nausea, No Vomiting, No Diarrhea Genitourinary Symptoms: Hematuria Musculoskeletal: No Back Pain, No Neck Pain Skin: No Rash Neurological: No Dizziness, No Focal Weakness, No Sensory Changes Psychological: No Symptoms Endocrine: No Symptoms Hematologic/Lymphatic: No Symptoms Immunological/Allergic: No Symptoms - Nursing Vital Signs Nursing Vital Signs: Initial Vital Signs Temperature 97.0 F 03/20/18 10:39 Pulse Rate 69 03/20/18 10:39 Respiratory Rate 16 03/20/18 10:39 O2 Sat by Pulse Oximetry 97 03/20/18 10:39 Pain Scale Pain Intensity 0 - Physical Exam General Appearance: no apparent distress, alert Eye Exam: PERRL/EOMI Ears, Nose, Throat Exam: pharynx normal, moist mucous membranes Neck Exam: normal inspection, supple Respiratory Exam: normal breath sounds, lungs clear Cardiovascular Exam: regular rate/rhythm, No edema Gastrointestinal/Abdomen Exam: soft, No tenderness Rectal Exam: not done Male Genital Exam: normal genitalia, no hernia Back Exam: normal inspection, No CVA tenderness Extremity Exam: normal inspection, normal range of motion, No pedal edema Neurologic Exam: alert, sensation nml, other (pt alert but does not communicate due to Down's), No motor deficits Skin Exam: normal color, warm, dry, No rash SpO2 Interpretation: normal Ordered Tests: Active Orders 24 hr Category Date Time Status Cath for Specimen-Straight STAT Care 03/20/18 11:09 Active CULTURE,URINE Stat Lab 03/20/18 11:09 Received UA W/ MICROSCOPIC Stat Lab 03/20/18 11:09 Completed Lab/Rad Data: Laboratory Results 03/20/18 Range/Units 11:09 Ur Collection Type CATH Urine Color RED (YELLOW) Urine Appearance BLOODY (CLEAR) Urine pH 8.0 (5-6) Ur Specific [place] 1.010 (1.005-1.025) Urine Protein 300 (Negative) Urine Ketones COLOR INTERFERENCE (NEGATIVE) Urine Blood 250 (0-5) Red/ul Urine Nitrite COLOR INTERFERENCE (NEGATIVE) Urine Bilirubin COLOR INTERFERENCE (NEGATIVE) Urine Urobilinogen COLOR INTERFERENCE (0-1) mg/dL Ur Leukocyte Esterase COLOR INTERFERENCE (NEGATIVE) Urine Microscopic RBC >100 (0-2) /HPF Urine Microscopic WBC 10-15 (0-5) /HPF Ur Epithelial Cells RARE (FEW) /HPF Urine Bacteria FEW (NEGATIVE) /HPF Urine Culture Reflexed YES (NO) Urine Glucose COLOR INTERFERENCE (NEGATIVE) mg/dL Specimen Received 03-20-18 1130 - Progress Progress: unchanged Counseled pt/family regarding: lab results, diagnosis, need for follow-up - Departure Time of Disposition: 12:11 Departure Disposition: Home Clinical Impression: UTI (urinary tract infection), Hematuria Condition: Stable Critical Care Time: No Referrals: GINNY STODDARD [Primary Care Provider] - Additional Instructions: You have a UTI with hematuria. Take Keflex 500 mg 4 times a day for 7 days. Stay well hydrated. Please follow-up with your primary care doctor tomorrow and arrange to have a urology appointment in the near future. Prescriptions: Cephalexin [Keflex] 500 mg PO QID #28 capsule
[2018-03-20 12:05] LABS: Appearance BLOODY (CLEAR); Bilirubin COLOR INTERFERENCE (NEGATIVE); Blood 250 Ery/ul (0-5); Glucose COLOR INTERFERENCE mg/dL (NEGATIVE); Ketones COLOR INTERFERENCE (NEGATIVE); Leukocyte Esterase COLOR INTERFERENCE (NEGATIVE); Nitrite COLOR INTERFERENCE (NEGATIVE); Protein,Urine Dip 300 (Negative); Urobilinogen COLOR INTERFERENCE mg/dL (0-1)
[2018-03-20 12:07] LABS: Bacteria FEW /HPF (NEGATIVE); Epithelial Cells RARE /HPF (FEW)
[2018-03-20 12:41] VITALS: BP 171/68; PULSE 70; O2SAT 96
== END 2018-03-20 12:42 | disposition home or self-care (01) ==
LOC: ED 10:33
DX: N39.0 Urinary tract infection, site not specified (principal); R31.9 Hematuria, unspecified; Q90.9 Down syndrome, unspecified; R56.9 Unspecified convulsions; J44.9 Chronic obstructive pulmonary disease, unspecified; Z79.899 Other long term (current) drug therapy; I10 Essential (primary) hypertension; E03.9 Hypothyroidism, unspecified
CPT/HCPCS: 81000; 87077; 87086; 87186; 99283; P9612

== ENCOUNTER 2018-08-05 18:53 | Inpatient (IN) | payer MEDICARE ==
--- NOTE | 2018-08-05 19:40 | ERPHSYRPT ---
- History of Present Illness Time Seen by Provider: 08/05/18 19:26 Source: other (waste examiner) Exam Limitations: clinical condition Patient Subjective Stated Complaint: Pt arrives to ER with waste examiner for c/o cough since Saturday with production that pt swallows. Lungs clear. temp 100.4F at home and is now 98.8F. Last breathing tx at 1730. PCP out of town, was told to come to ER Triage Nursing Assessment: Pt does not appear to be in any distress at this time. Physician History: 68 y/o male who is mentally challenged who has history of pneumonia and UTI comes from home for cough, congestion and fever for the last couple of days. At home, patient had a fever of 100.4. Pt can not provide any history. Pt has also been more lethargic lately. Timing/Duration: yesterday Fever Severity: mild Fever Therapy [employer]: none Associated Symptoms: denies symptoms Allergies/Adverse Reactions: No Known Drug Allergies Allergy (Verified 08/05/18 19:11) Home Medications: Albuterol 2.5 mg/0.5 ml [PROVENTIL Solution 2.5 MG/0.5 ML] 2.5 mg IH BID 01/30/15 [History] Aspirin 81 mg PO DAILY 01/30/15 [History] Fluticasone Propionate [Flonase] 16 gm NS DAILY 01/30/15 [History] Levetiracetam [Keppra] 1,000 mg PO BID 01/30/15 [History] Levothyroxine Sodium [Synthroid] 75 mcg PO DAILY 01/30/15 [History] Loratadine [Claritin] 10 mg PO DAILY 01/30/15 [History] Omeprazole [Prilosec] 20 mg PO DAILY 01/30/15 [History] Polyethylene Glycol 3350 17 gm [Miralax Powder 17GM PACKET] 17 gm PO DAILY [History] Quetiapine Fumarate 25 mg [Seroquel 25 MG] 25 mg PO HS 02/22/16 [History] Phenytoin Susp 125 mg/5 ml [Dilantin-125 SUSPENSION] 4 ml PO BID 01/02/18 [History] Hx Tetanus, Diphtheria Vaccination/Date Given: Yes Hx Influenza Vaccination/Date Given: No Hx Pneumococcal Vaccination/Date Given: No - Review of Systems Constitutional: Fever, Lethargy, No Chills Eyes: No Symptoms Ears, Nose, & Throat: No Symptoms Respiratory: Cough, No Dyspnea, No Wheezing Cardiac: No Chest Pain, No Edema, No Syncope Abdominal/Gastrointestinal: No Abdominal Pain, No Nausea, No Vomiting, No Diarrhea Genitourinary Symptoms: No Dysuria Musculoskeletal: No Back Pain, No Neck Pain Skin: No Rash Neurological: No Dizziness, No Focal Weakness, No Sensory Changes Psychological: No Symptoms Endocrine: No Symptoms All Other Systems: Reviewed and Negative - Past Medical History Pertinent Past Medical History: Yes Neurological History: Dementia, Seizures, Other ENT History: No Pertinent History Cardiac History: Hypertension Respiratory History: COPD, Sleep Apnea Endocrine Medical History: Hypothyroidism Musculoskeletal History: No Pertinent History GI Medical History: GERD History: No Pertinent History Psycho-Social History: No Pertinent History Male Reproductive Disorders: No Pertinent History Other Medical History: ALLERGIES, Down Syndrome - Past Surgical History Past Surgical History: Yes Neuro Surgical History: No Pertinent History Cardiac: No Pertinent History Respiratory: No Pertinent History Gastrointestinal: No Pertinent History Genitourinary: No Pertinent History Musculoskeletal: No Pertinent History Male Surgical History: No Pertinent History Other Surgical History: TEETH REMOVED, toe growth removed, esophagus stretched - Social History Smoking Status: Never smoker Exposure to second hand smoke: No Drug Use: none Patient Lives Alone: No - Nursing Vital Signs Nursing Vital Signs: Initial Vital Signs Temperature 98.8 F 08/05/18 19:00 Pulse Rate 76 08/05/18 19:00 Respiratory Rate 18 08/05/18 19:00 Blood Pressure 156/67 08/05/18 19:00 O2 Sat by Pulse Oximetry 94 L 08/05/18 19:00 Pain Scale Pain Intensity 0 - Physical Exam General Appearance: no apparent distress, alert Eye Exam: PERRL/EOMI ENT Exam: normal ENT inspection, No pharyngeal erythema, No tonsillar exudate Neck Exam: supple, full range of motion, No meningismus Respiratory Exam: normal breath sounds, no respiratory distress, crackles/rales Cardiovascular/Chest Exam: normal heart sounds, regular rate/rhythm, No murmur, No edema Gastrointestinal/Abdominal Exam: soft, non tender, no distention Extremity Exam: non-tender, normal range of motion, normal inspection, normal capillary refill Neurologic Exam: alert, oriented x 3, cooperative, mold carrier II-XII nml as tested, normal mood/affect, sensation nml, No motor deficits Skin Exam: normal color, warm, dry, No rash SpO2: 94 Oxygen Delivery: Room Air - Course Nursing assessment & vital signs reviewed: Yes Ordered Tests: Active Orders 24 hr Category Date Time Status Bedrest ROUTINE Activity 08/05/18 20:51 Active Admit as Inpatient ROUTINE Care 08/05/18 20:50 Active Cath for Specimen-Straight STAT Care 08/05/18 19:23 Active Code Status Order ROUTINE Care 08/05/18 20:50 Active IV Care Q6H Care 08/05/18 20:50 Active IV Insertion STAT Care 08/05/18 19:19 Active NPO Diet 08/05/18 20:51 Active CHEST 1 VIEW (PORTABLE) Stat Exams 08/05/18 19:34 Taken BLOOD CULTURE Stat Lab 08/05/18 19:40 Received CBC W DIFF AM.LAB Lab 08/06/18 04:00 Ordered CBC W DIFF Stat Lab 08/05/18 19:25 Completed CMP AM.LAB Lab 08/06/18 04:00 Ordered CMP Stat Lab 08/05/18 19:25 Completed CULTURE,URINE Stat Lab 08/05/18 18:10 Received Lactic Acid Stat Lab 08/05/18 19:50 Results UA W/ MICROSCOPIC Stat Lab 08/05/18 18:10 Completed Transfer Order Routine Transfer 08/05/18 Ordered Medication Summary Generic Name Dose Route Start Last Admin Trade Name Freq PRN Reason Stop Dose Admin Azithromycin 500 mg in 250 mls @ 250 mls/hr 08/05/18 20:43 08/05/18 21:15 Zithromax 500 Mg/ 250 Ml Nacl Premix IV 08/05/18 21:42 250 mls/hr STAT ONE 250 mls/hr Administration Sodium Chloride 1,000 mls @ 100 mls/hr 08/05/18 21:00 Sodium Chloride 0.9% 1000 Ml IV 09/04/18 20:59 .Q10H KENDELL Azithromycin 500 mg in 250 mls @ 250 mls/hr 08/06/18 10:00 Zithromax 500 Mg/ 250 Ml Nacl Premix IV 09/05/18 09:59 Q24H10 KENDELL Ceftriaxone Sodium/Dextrose 1 g in 50 mls @ 100 mls/hr 08/06/18 10:00 Rocephin 1 Gm-D5w 50 Ml Bag IV 09/05/18 09:59 Q24H10 KENDELL Sodium Chloride 1,000 mls @ 100 mls/hr 08/05/18 21:00 Sodium Chloride 0.9% 1000 Ml IV 09/04/18 20:59 .Q10H KENDELL Discontinued Medications Generic Name Dose Route Start Last Admin Trade Name Freq PRN Reason Stop Dose Admin Ceftriaxone Sodium/Dextrose 1 g in 50 mls @ 100 mls/hr 08/05/18 20:43 20:57 Rocephin 1 Gm-D5w 50 Ml Bag IV 08/05/18 21:12 100 mls/hr STAT ONE 100 mls/hr Administration Ceftriaxone Sodium/Dextrose Confirm 08/05/18 20:45 Rocephin 1 Gm-D5w 50 Ml Bag Administered 08/05/18 20:46 Dose 1 g in 50 mls @ ud IV .STK-MED ONE Azithromycin Confirm 08/05/18 21:10 Zithromax 500 Mg/ 250 Ml Nacl Premix Administered 08/05/18 21:11 Dose 500 mg in 250 mls @ ud IV .STK-MED ONE Lab/Rad Data: Laboratory Result Diagrams 08/05/18 19:25 08/05/18 19:25 Laboratory Results 08/05/18 08/05/18 08/05/18 Range/Units 19:50 19:25 19:25 WBC 7.2 (4.0-10.5) K/mm3 RBC 3.92 L (4.1-5.6) M/mm3 Hgb 12.9 (12.5-18.0) gm/dl Hct 39.2 L (42-50) % MCV 100.0 (78-100) fl MCH 32.9 H (26-32) pg MCHC 32.9 (32-36) g/dl RDW 13.1 (11.5-14.0) % Plt Count 282 (150-450) K/mm3 MPV 10.4 H (6-9.5) fl Gran % 60.1 (36.0-66.0) % Eos # (Auto) 0.21 (0-0.5) Absolute Lymphs (auto) 1.75 (1.0-4.6) Absolute Monos (auto) 0.87 (0.0-1.3) Lymphocytes % 24.4 (24.0-44.0) % Monocytes % 12.2 H (0.0-12.0) % Eosinophils % 2.9 (0.00-5.0) % Basophils % 0.4 (0.0-0.4) % Absolute Granulocytes 4.30 (1.4-6.9) Basophils # 0.03 (0-0.4) Sodium 145 (137-145) mmol/L Potassium 4.3 (3.5-5.1) mmol/L Chloride 108 H (98-107) mmol/L Carbon Dioxide 27 (22-30) mmol/L Anion Gap 13.9 (5-15) MEQ/L BUN 21 H (9-20) mg/dL Creatinine 0.71 (0.66-1.25) mg/dL Estimated GFR > 60.0 ML/MIN Glucose 176 H (74-106) mg/dL Lactic Acid 2.1 H (0.4-2.0) Calcium 8.4 (8.4-10.2) mg/dL Total Bilirubin 0.30 (0.2-1.3) mg/dL AST 28 (17-59) U/L ALT 23 (0-50) U/L Alkaline Phosphatase 195 H (38-126) U/L Serum Total Protein 7.8 (6.3-8.2) g/dL Albumin 3.6 (3.5-5.0) g/dL Ur Collection Type Urine Color (YELLOW) Urine Appearance (CLEAR) Urine pH (5-6) Ur Specific [place] (1.005-1.025) Urine Protein (Negative) Urine Ketones (NEGATIVE) Urine Blood (0-5) Red/ul Urine Nitrite (NEGATIVE) Urine Bilirubin (NEGATIVE) Urine Urobilinogen (0-1) mg/dL Ur Leukocyte Esterase (NEGATIVE) Urine Microscopic RBC (0-2) /HPF Urine Microscopic WBC (0-5) /HPF Ur Epithelial Cells (FEW) /HPF Urine Bacteria (NEGATIVE) /HPF Urine Culture Reflexed (NO) Urine Glucose (NEGATIVE) mg/dL Specimen Received 08/05/18 Range/Units 18:10 WBC (4.0-10.5) K/mm3 RBC (4.1-5.6) M/mm3 Hgb (12.5-18.0) gm/dl Hct (42-50) % MCV (78-100) fl MCH (26-32) pg MCHC (32-36) g/dl RDW (11.5-14.0) % Plt Count (150-450) K/mm3 MPV (6-9.5) fl Gran % (36.0-66.0) % Eos # (Auto) (0-0.5) Absolute Lymphs (auto) (1.0-4.6) Absolute Monos (auto) (0.0-1.3) Lymphocytes % (24.0-44.0) % Monocytes % (0.0-12.0) % Eosinophils % (0.00-5.0) % Basophils % (0.0-0.4) % Absolute Granulocytes (1.4-6.9) Basophils # (0-0.4) Sodium (137-145) mmol/L Potassium (3.5-5.1) mmol/L Chloride (98-107) mmol/L Carbon Dioxide (22-30) mmol/L Anion Gap (5-15) MEQ/L BUN (9-20) mg/dL Creatinine (0.66-1.25) mg/dL Estimated GFR ML/MIN Glucose (74-106) mg/dL Lactic Acid (0.4-2.0) Calcium (8.4-10.2) mg/dL Total Bilirubin (0.2-1.3) mg/dL AST (17-59) U/L ALT (0-50) U/L Alkaline Phosphatase (38-126) U/L Serum Total Protein (6.3-8.2) g/dL Albumin (3.5-5.0) g/dL Ur Collection Type VOID Urine Color YELLOW (YELLOW) Urine Appearance CLOUDY (CLEAR) Urine pH 6.0 (5-6) Ur Specific [place] 1.015 (1.005-1.025) Urine Protein 30 (Negative) Urine Ketones NEGATIVE (NEGATIVE) Urine Blood 250 (0-5) Red/ul Urine Nitrite NEGATIVE (NEGATIVE) Urine Bilirubin NEGATIVE (NEGATIVE) Urine Urobilinogen NORMAL (0-1) mg/dL Ur Leukocyte Esterase 2+ (NEGATIVE) Urine Microscopic RBC >100 (0-2) /HPF Urine Microscopic WBC 15-25 (0-5) /HPF Ur Epithelial Cells FEW (FEW) /HPF Urine Bacteria MANY (NEGATIVE) /HPF Urine Culture Reflexed YES (NO) Urine Glucose NEGATIVE (NEGATIVE) mg/dL Specimen Received 08/05 2015 - Progress Progress: unchanged Progress Note: 08/05/18 20:46 The patient has a right lower infiltrate and a UTI. Pt has no fever here but it was 100.4 at home. Pt has no white count. Pt will be started on azithromycin and rocephin. Pt has been admitted to Dr Montero. - Departure Time of Disposition: 21:29 Departure Disposition: In-patient Admission Clinical Impression: Pneumonia Qualifiers: Pneumonia type: aspiration pneumonia Aspiration pneumonia type: unspecified Laterality: right Lung location: lower lobe of lung Qualified Code(s): J69.0 - Pneumonitis due to inhalation of food and vomit UTI (urinary tract infection) Qualifiers: Urinary tract infection type: site unspecified Hematuria presence: without hematuria Qualified Code(s): N39.0 - Urinary tract infection, site not specified Condition: Fair Critical Care Time: Yes Critical Care Time(excluding separately billable procedures): 30-74 minutes Referrals: GINNY STODDARD [Primary Care Provider] -
[2018-08-05 19:56] LABS: BASOPHIL % 0.4 % (0.0-0.4); Basophil (Absolute #) 0.03 (0-0.4); Eosinophil % 2.9 % (0.00-5.0); Eosinophil (Absolute #) 0.21 (0-0.5); Granulocytes % 60.1 % (36.0-66.0); Hematocrit 39.2 % (42-50); Hemoglobin 12.9 gm/dl (12.5-18.0); Lymphocyte (Absolute #) 1.75 (1.0-4.6); Lymphocytes % 24.4 % (24.0-44.0); Mean Corpuscular Hemoglobin 32.9 pg (26-32); Mean Corpuscular Hgb Concent. 32.9 g/dl (32-36); Mean Platelet Volume 10.4 fl (6-9.5); Monocyte (Absolute #) 0.87 (0.0-1.3); Monocytes % 12.2 % (0.0-12.0); Platelet Count 282 K/mm3 (150-450); Red Blood Count 3.92 M/mm3 (4.1-5.6); Red Cell Distribution Width 13.1 % (11.5-14.0); White Blood Count 7.2 K/mm3 (4.0-10.5)
[2018-08-05 20:01] LABS: Lactic Acid 2.1 (0.4-2.0)
[2018-08-05 20:19] LABS: ALBUMIN 3.6 g/dL (3.5-5.0); ALKALINE PHOSPHATASE 195 U/L (38-126); ANION GAP 13.9 MEQ/L (5-15); BLOOD UREA NITROGEN 21 mg/dL (9-20); CHLORIDE 108 mmol/L (98-107); Calcium 8.4 mg/dL (8.4-10.2); Carbon Dioxide 27 mmol/L (22-30); Creatinine 1 0.71 mg/dL (0.66-1.25); Glucose 176 mg/dL (74-106); Potassium 4.3 mmol/L (3.5-5.1); SGOT/AST 28 U/L (17-59); SGPT/ALT 23 U/L (0-50); SODIUM 145 mmol/L (137-145); Total Protein 7.8 g/dL (6.3-8.2)
[2018-08-05 20:33] LABS: Appearance CLOUDY (CLEAR); Leukocyte Esterase 2+ (NEGATIVE); Nitrite NEGATIVE (NEGATIVE); Protein,Urine Dip 30 (Negative); Specific Gravity 1.015 (1.005-1.025)
[2018-08-05 20:34] LABS: Bilirubin NEGATIVE (NEGATIVE); Blood 250 Ery/ul (0-5); Glucose NEGATIVE (NEGATIVE); Ketones NEGATIVE (NEGATIVE); Urobilinogen NORMAL mg/dL (0-1); WBC 15-25 /HPF (0-5)
[2018-08-05 20:35] LABS: Bacteria MANY /HPF (NEGATIVE); Epithelial Cells FEW /HPF (FEW); RBC >100 /HPF (0-2)
[2018-08-05] MEDS ORDERED: ROCEPHIN 1 Gm-D5w 50 ml Bag** 1 G/50 ML IVPB IV ONE ×2 (20:43→20:45)
[2018-08-05] MEDS ORDERED: Zithromax 500 MG/ 250 ML NaCl Premix 500 MG/250 ML IVPB IV ONE ×2 (20:43→21:10)
[2018-08-05] MEDS ORDERED: Sodium Chloride 0.9% 1000 ML 1,000 ML IV SCH (21:00)
[2018-08-05] MEDS: Sodium Chloride 0.9% 1000 ML 1,000 ML IV SCH (22:24)
[2018-08-05] MEDS ORDERED: PULMICORT 0.5 MG/2 ML RESPULES IH ONE (23:51)
[2018-08-05] MEDS ORDERED: PROVENTIL 2.5 MG/3 ML NEB IH ONE (23:51)
[2018-08-05] MEDS ORDERED: PROVENTIL 2.5 MG/3 ML NEB IH PRN (23:59)
[2018-08-06] MEDS: PULMICORT 0.5 MG/2 ML RESPULES IH SCH ×2 (05:31→18:53)
[2018-08-06] MEDS: PROVENTIL 2.5 MG/3 ML NEB IH SCH ×4 (05:31→18:53)
[2018-08-06 06:00] LABS: BASOPHIL % 0.5 % (0.0-0.4); Basophil (Absolute #) 0.03 (0-0.4); Eosinophil % 3.6 % (0.00-5.0); Eosinophil (Absolute #) 0.21 (0-0.5); Granulocytes % 46.7 % (36.0-66.0); Hematocrit 39.1 % (42-50); Hemoglobin 12.7 gm/dl (12.5-18.0); Lymphocyte (Absolute #) 2.02 (1.0-4.6); Lymphocytes % 34.9 % (24.0-44.0); Mean Corpuscular Hgb Concent. 32.5 g/dl (32-36); Mean Platelet Volume 9.7 fl (6-9.5); Monocyte (Absolute #) 0.83 (0.0-1.3); Monocytes % 14.3 % (0.0-12.0); Platelet Count 315 K/mm3 (150-450); Red Blood Count 3.95 M/mm3 (4.1-5.6); White Blood Count 5.8 K/mm3 (4.0-10.5)
[2018-08-06 06:01] LABS: Mean Corpuscular Hemoglobin 32.1 pg (26-32)
[2018-08-06 06:11] LABS: ALBUMIN 3.3 g/dL (3.5-5.0); ALKALINE PHOSPHATASE 182 U/L (38-126); ANION GAP 11.7 MEQ/L (5-15); BLOOD UREA NITROGEN 16 mg/dL (9-20); CHLORIDE 111 mmol/L (98-107); Calcium 8.2 mg/dL (8.4-10.2); Carbon Dioxide 27 mmol/L (22-30); Creatinine 1 0.67 mg/dL (0.66-1.25); Glucose 92 mg/dL (74-106); Potassium 4.1 mmol/L (3.5-5.1); SGOT/AST 26 U/L (17-59); SGPT/ALT 22 U/L (0-50); SODIUM 145 mmol/L (137-145); Total Protein 7.5 g/dL (6.3-8.2)
[2018-08-06] MEDS: Sodium Chloride 0.9% 1000 ML 1,000 ML IV SCH (07:59)
--- NOTE | 2018-08-06 08:46 | XRAY ---
Indication: Cough and congestion. Comparison: March 01, 2018. Portable chest underinflated today with moderate clearing of the previous bilateral airspace opacities with small residual in both lung bases. Stable small right effusion. Query right suprahilar irregular opacity, previously obscured. Heart is not enlarged. Impression: 1. Bilateral airspace opacities improved with small bilateral residual and small right effusion. 2. Query right suprahilar irregular opacity previously obscured. CT chest with contrast may yield further information.
--- NOTE | 2018-08-06 12:27 | PCM.HP ---
History of Present Illness - Chief Complaint Chief Complaint: shortness of breath for 2-3 days History of Present Illness: 68 y/o male who is mentally challenged who has history of pneumonia and UTI comes from home for cough, congestion and fever for the last couple of days. At home, patient had a fever of 100.4. Pt can not provide any history. Pt has also been more lethargic lately. - Review of Systems Constitutional: No Fever, No Chills Eyes: No Symptoms Ears, Nose, & Throat: No Symptoms Respiratory: No Cough, No Short Of Breath Cardiac: No Chest Pain, No Edema, No Syncope Abdominal/Gastrointestinal: No Abdominal Pain, No Nausea, No Vomiting, No Diarrhea Genitourinary Symptoms: No Dysuria Musculoskeletal: No Back Pain, No Neck Pain Skin: No Rash Neurological: No Dizziness, No Focal Weakness, No Sensory Changes Psychological: No Symptoms Endocrine: No Symptoms Hematologic/Lymphatic: No Symptoms Immunological/Allergic: No Symptoms Medications & Allergies Home Medications: Home Medication List Albuterol 2.5 mg/0.5 ml [PROVENTIL Solution 2.5 MG/0.5 ML] 2.5 mg IH QID 01/30/15 [History Confirmed 08/05/18] Aspirin 81 mg PO DAILY 01/30/15 [History Confirmed 08/05/18] Fluticasone Propionate [Flonase] 16 gm NS DAILY 01/30/15 [History Confirmed 03/19] Levetiracetam [Keppra] 1,000 mg PO BID 01/30/15 [History Confirmed 08/05/18] Levothyroxine Sodium [Synthroid] 75 mcg PO 0700 01/30/15 [History Confirmed 03/19] Loratadine [Claritin] 10 mg PO DAILY 01/30/15 [History Confirmed 08/05/18] Omeprazole [Prilosec] 20 mg PO DAILY 01/30/15 [History Confirmed 08/05/18] Polyethylene Glycol 3350 17 gm [Miralax Powder 17GM PACKET] 17 gm PO DAILY [History Confirmed 08/05/18] Phenytoin Susp 125 mg/5 ml [Dilantin-125 SUSPENSION] 4 ml PO BID 01/02/18 [History Confirmed 08/05/18] Budesonide 0.5 mg/2 ml [Pulmicort 0.5 mg/2 ml Respules] 0.5 mg IH BID 03/19 [History Confirmed 08/05/18] Allergies/Adverse Reactions: Allergies Allergy/AdvReac Type Severity Reaction Status Date / Time No Known Drug Allergies Allergy Verified 08/05/18 19:11 - Past Medical History Past Medical History: Yes Neurological History: Dementia, Seizures, Other ENT History: No Pertinent History Cardiac History: Hypertension Respiratory History: COPD, Sleep Apnea Endocrine Medical History: Hypothyroidism Musculoskelatal History: No Pertinent History GI Medical History: GERD History: No Pertinent History Pyscho-Social History: No Pertinent History Male Reproductive Disorders: No Pertinent History Comment: ALLERGIES, Down Syndrome - Past Surgical History Past Surgical History: Yes Neuro Surgical History: No Pertinent History Cardiac History: No Pertinent History Respiratory Surgery: No Pertinent History GI Surgical History: No Pertinent History Genitourinary Surgical Hx: No Pertinent History Musculskeletal Surgical Hx: No Pertinent History Male Surgical History: No Pertinent History Other Surgical History: TEETH REMOVED, toe growth removed, esophagus stretched - Social History Smoking Status: Never smoker Exposure to second hand smoke: No Alcohol: None Drug Use: none - Physical Exam Vital Signs: Vital Signs - 24 hr Temp Pulse Resp BP Pulse Ox 08/06/18 11:51 98.1 F 79 18 125/57 90 L 08/06/18 10:48 88 20 08/06/18 08:00 18 08/06/18 07:50 98.7 F 73 18 148/65 90 L 08/06/18 06:42 84 28 H 90 L 08/06/18 04:30 97.6 F 84 28 H 188/77 90 L 08/05/18 23:55 73 22 90 L 08/05/18 23:06 98.7 F 74 22 176/77 93 L 08/05/18 21:54 80 18 130/56 94 L 08/05/18 21:29 94 L 08/05/18 19:00 98.8 F 76 18 156/67 94 L General Appearance: no apparent distress, alert Neurologic Exam: alert, oriented x 3, cooperative, normal mood/affect, nml cerebellar function, nml station & gait, sensation nml, No motor deficits Eye Exam: PERRL/EOMI, eyes nml inspection Ears, Nose, Throat Exam: normal ENT inspection, TMs normal, pharynx normal, moist mucous membranes Neck Exam: normal inspection, non-tender, supple, full range of motion Respiratory Exam: normal breath sounds, lungs clear, No respiratory distress Cardiovascular Exam: regular rate/rhythm, normal heart sounds, normal peripheral pulses Gastrointestinal/Abdomen Exam: soft, normal bowel sounds, No tenderness, No mass Back Exam: normal inspection, normal range of motion, No CVA tenderness, No vertebral tenderness Extremity Exam: normal inspection, normal range of motion, pelvis stable Skin Exam: normal color, warm, dry, No rash Lymphatic Exam: No adenopathy Results - Labs Lab/Micro Results: Lab Results-Last 24 Hours 08/05/18 08/05/18 08/05/18 Range/Units 18:10 19:25 19:25 WBC 7.2 (4.0-10.5) K/mm3 RBC 3.92 L (4.1-5.6) M/mm3 Hgb 12.9 (12.5-18.0) gm/dl Hct 39.2 L (42-50) % MCV 100.0 (78-100) fl MCH 32.9 H (26-32) pg MCHC 32.9 (32-36) g/dl RDW 13.1 (11.5-14.0) % Plt Count 282 (150-450) K/mm3 MPV 10.4 H (6-9.5) fl Gran % 60.1 (36.0-66.0) % Eos # (Auto) 0.21 (0-0.5) Absolute Lymphs (auto) 1.75 (1.0-4.6) Absolute Monos (auto) 0.87 (0.0-1.3) Lymphocytes % 24.4 (24.0-44.0) % Monocytes % 12.2 H (0.0-12.0) % Eosinophils % 2.9 (0.00-5.0) % Basophils % 0.4 (0.0-0.4) % Absolute Granulocytes 4.30 (1.4-6.9) Basophils # 0.03 (0-0.4) Sodium 145 (137-145) mmol/L Potassium 4.3 (3.5-5.1) mmol/L Chloride 108 H (98-107) mmol/L Carbon Dioxide 27 (22-30) mmol/L Anion Gap 13.9 (5-15) MEQ/L BUN 21 H (9-20) mg/dL Creatinine 0.71 (0.66-1.25) mg/dL Estimated GFR > 60.0 ML/MIN Glucose 176 H (74-106) mg/dL Lactic Acid (0.4-2.0) Calcium 8.4 (8.4-10.2) mg/dL Total Bilirubin 0.30 (0.2-1.3) mg/dL AST 28 (17-59) U/L ALT 23 (0-50) U/L Alkaline Phosphatase 195 H (38-126) U/L Serum Total Protein 7.8 (6.3-8.2) g/dL Albumin 3.6 (3.5-5.0) g/dL Ur Collection Type VOID Urine Color YELLOW (YELLOW) Urine Appearance CLOUDY (CLEAR) Urine pH 6.0 (5-6) Ur Specific [place] 1.015 (1.005-1.025) Urine Protein 30 (Negative) Urine Ketones NEGATIVE (NEGATIVE) Urine Blood 250 (0-5) Red/ul Urine Nitrite NEGATIVE (NEGATIVE) Urine Bilirubin NEGATIVE (NEGATIVE) Urine Urobilinogen NORMAL (0-1) mg/dL Ur Leukocyte Esterase 2+ (NEGATIVE) Urine Microscopic RBC >100 (0-2) /HPF Urine Microscopic WBC 15-25 (0-5) /HPF Ur Epithelial Cells FEW (FEW) /HPF Urine Bacteria MANY (NEGATIVE) /HPF Urine Culture Reflexed YES (NO) Urine Glucose NEGATIVE (NEGATIVE) mg/dL Specimen Received 08/05 201508/05/18 08/05/18 08/06/18 Range/Units 19:50 23:30 05:13 WBC 5.8 (4.0-10.5) K/mm3 RBC 3.95 L (4.1-5.6) M/mm3 Hgb 12.7 (12.5-18.0) gm/dl Hct 39.1 L (42-50) % MCV 99.0 (78-100) fl MCH 32.1 H (26-32) pg MCHC 32.5 (32-36) g/dl RDW 13.0 (11.5-14.0) % Plt Count 315 (150-450) K/mm3 MPV 9.7 H (6-9.5) fl Gran % 46.7 (36.0-66.0) % Eos # (Auto) 0.21 (0-0.5) Absolute Lymphs (auto) 2.02 (1.0-4.6) Absolute Monos (auto) 0.83 (0.0-1.3) Lymphocytes % 34.9 (24.0-44.0) % Monocytes % 14.3 H (0.0-12.0) % Eosinophils % 3.6 (0.00-5.0) % Basophils % 0.5 (0.0-0.4) % Absolute Granulocytes 2.70 (1.4-6.9) Basophils # 0.03 (0-0.4) Sodium (137-145) mmol/L Potassium (3.5-5.1) mmol/L Chloride (98-107) mmol/L Carbon Dioxide (22-30) mmol/L Anion Gap (5-15) MEQ/L BUN (9-20) mg/dL Creatinine (0.66-1.25) mg/dL Estimated GFR ML/MIN Glucose (74-106) mg/dL Lactic Acid 2.1 H 0.5 (0.4-2.0) Calcium (8.4-10.2) mg/dL Total Bilirubin (0.2-1.3) mg/dL AST (17-59) U/L ALT (0-50) U/L Alkaline Phosphatase (38-126) U/L Serum Total Protein (6.3-8.2) g/dL Albumin (3.5-5.0) g/dL Ur Collection Type Urine Color (YELLOW) Urine Appearance (CLEAR) Urine pH (5-6) Ur Specific [place] (1.005-1.025) Urine Protein (Negative) Urine Ketones (NEGATIVE) Urine Blood (0-5) Red/ul Urine Nitrite (NEGATIVE) Urine Bilirubin (NEGATIVE) Urine Urobilinogen (0-1) mg/dL Ur Leukocyte Esterase (NEGATIVE) Urine Microscopic RBC (0-2) /HPF Urine Microscopic WBC (0-5) /HPF Ur Epithelial Cells (FEW) /HPF Urine Bacteria (NEGATIVE) /HPF Urine Culture Reflexed (NO) Urine Glucose (NEGATIVE) mg/dL Specimen Received 08/06/18 Range/Units 05:13 WBC (4.0-10.5) K/mm3 RBC (4.1-5.6) M/mm3 Hgb (12.5-18.0) gm/dl Hct (42-50) % MCV (78-100) fl MCH (26-32) pg MCHC (32-36) g/dl RDW (11.5-14.0) % Plt Count (150-450) K/mm3 MPV (6-9.5) fl Gran % (36.0-66.0) % Eos # (Auto) (0-0.5) Absolute Lymphs (auto) (1.0-4.6) Absolute Monos (auto) (0.0-1.3) Lymphocytes % (24.0-44.0) % Monocytes % (0.0-12.0) % Eosinophils % (0.00-5.0) % Basophils % (0.0-0.4) % Absolute Granulocytes (1.4-6.9) Basophils # (0-0.4) Sodium 145 (137-145) mmol/L Potassium 4.1 (3.5-5.1) mmol/L Chloride 111 H (98-107) mmol/L Carbon Dioxide 27 (22-30) mmol/L Anion Gap 11.7 (5-15) MEQ/L BUN 16 (9-20) mg/dL Creatinine 0.67 (0.66-1.25) mg/dL Estimated GFR > 60.0 ML/MIN Glucose 92 (74-106) mg/dL Lactic Acid (0.4-2.0) Calcium 8.2 L (8.4-10.2) mg/dL Total Bilirubin 0.30 (0.2-1.3) mg/dL AST 26 (17-59) U/L ALT 22 (0-50) U/L Alkaline Phosphatase 182 H (38-126) U/L Serum Total Protein 7.5 (6.3-8.2) g/dL Albumin 3.3 L (3.5-5.0) g/dL Ur Collection Type Urine Color (YELLOW) Urine Appearance (CLEAR) Urine pH (5-6) Ur Specific [place] (1.005-1.025) Urine Protein (Negative) Urine Ketones (NEGATIVE) Urine Blood (0-5) Red/ul Urine Nitrite (NEGATIVE) Urine Bilirubin (NEGATIVE) Urine Urobilinogen (0-1) mg/dL Ur Leukocyte Esterase (NEGATIVE) Urine Microscopic RBC (0-2) /HPF Urine Microscopic WBC (0-5) /HPF Ur Epithelial Cells (FEW) /HPF Urine Bacteria (NEGATIVE) /HPF Urine Culture Reflexed (NO) Urine Glucose (NEGATIVE) mg/dL Specimen Received Microbiology 08/05/18 18:10 Urine Culture - Preliminary Urine, Void NO GROWTH TO DATE - Radiology Impressions Radiology Exams & Impressions: Radiology Procedures Category Date Time Status CHEST 1 VIEW (PORTABLE) Stat Exams 08/05/18 19:34 Completed - Other Procedures and Tests Respiratory Therapy 08/05/18 23:55 Respiratory Therapy Assessment DAILY Assessment/Plan (1) Pneumonia Current Visit: Yes Status: Acute Qualifiers: Pneumonia type: aspiration pneumonia Aspiration pneumonia type: unspecified Laterality: right Lung location: lower lobe of lung Qualified Code(s): J69.0 - Pneumonitis due to inhalation of food and vomit Code(s): J18.9 - PNEUMONIA, UNSPECIFIED ORGANISM (2) UTI (urinary tract infection) Current Visit: Yes Status: Acute Qualifiers: Urinary tract infection type: site unspecified Hematuria presence: without hematuria Qualified Code(s): N39.0 - Urinary tract infection, site not specified Code(s): N39.0 - URINARY TRACT INFECTION, SITE NOT SPECIFIED (3) COPD (chronic obstructive pulmonary disease) Current Visit: No Status: Chronic (4) History of seizure disorder Current Visit: No Status: Chronic Code(s): Z86.69 - PERSONAL HISTORY OF DIS OF THE NERVOUS SYS AND SENSE ORGANS
[2018-08-06] MEDS ORDERED: DILANTIN PO SCH (13:00)
[2018-08-06] MEDS ORDERED: KEPPRA 500 MG PO SCH (13:00)
[2018-08-06] MEDS: PATIENT OWN MEDICATION PO SCH ×4 (13:07→22:05)
[2018-08-06] MEDS: CLARITIN 10 MG PO SCH (14:48)
[2018-08-06] MEDS: Miralax Powder 17GM PACKET PO SCH (14:49)
[2018-08-06] MEDS: SYNTHROID 75 MCG PO SCH (14:49)
[2018-08-06] MEDS: Protonix 40MG Tablet PO SCH (14:49)
[2018-08-06] MEDS: Flonase NASAL NS SCH (14:49)
[2018-08-06] MEDS: ECOTRIN 81 MG PO SCH (14:49)
[2018-08-06] MEDS ORDERED: Zithromax 500 MG/ 250 ML NaCl Premix 500 MG/250 ML IVPB IV SCH (22:00)
[2018-08-06] MEDS ORDERED: LEVETIRACETAM 1000 MG PO SCH (22:00)
[2018-08-06] MEDS ORDERED: ROCEPHIN 1 Gm-D5w 50 ml Bag** 1 G/50 ML IVPB IV SCH (22:00)
[2018-08-07] MEDS: Sodium Chloride 0.9% 1000 ML 1,000 ML IV SCH (05:36)
[2018-08-07] MEDS: SYNTHROID 75 MCG PO SCH (06:29)
[2018-08-07] MEDS: PROVENTIL 2.5 MG/3 ML NEB IH SCH ×2 (07:26→11:38)
[2018-08-07] MEDS: PULMICORT 0.5 MG/2 ML RESPULES IH SCH (07:27)
--- NOTE | 2018-08-07 09:44 | XRAY ---
Indication: Pneumonia. Comparison: One day earlier. Portable chest unchanged again slightly underinflated with bibasilar airspace opacities right greater than left, small right effusion, and right suprahilar irregular opacity. Heart is not enlarged. No new cardiopulmonary abnormalities.
[2018-08-07] MEDS ORDERED: NON-FORMULARY ITEM (Aspirin [Aspirin] 81 MG) PO SCH (10:00)
[2018-08-07] MEDS ORDERED: NON-FORMULARY ITEM (Omeprazole [Prilosec] 20 MG) PO SCH (10:00)
[2018-08-07] MEDS ORDERED: NON-FORMULARY ITEM (Loratadine [Claritin] 10 MG) PO SCH (10:00)
[2018-08-07] MEDS: PATIENT OWN MEDICATION PO SCH ×2 (10:02→10:03)
[2018-08-07] MEDS: Miralax Powder 17GM PACKET PO SCH (10:02)
[2018-08-07 10:04] LABS: Hematocrit 39.4 % (42-50); Hemoglobin 13.1 gm/dl (12.5-18.0); Mean Cell Volume 97.8 fl (78-100); Mean Corpuscular Hemoglobin 32.5 pg (26-32); Mean Corpuscular Hgb Concent. 33.2 g/dl (32-36); Mean Platelet Volume 10.3 fl (6-9.5); Platelet Count 289 K/mm3 (150-450); Red Blood Count 4.03 M/mm3 (4.1-5.6); Red Cell Distribution Width 12.8 % (11.5-14.0); White Blood Count 4.1 K/mm3 (4.0-10.5)
[2018-08-07] MEDS: Protonix 40MG Tablet PO SCH (10:10)
[2018-08-07] MEDS: CLARITIN 10 MG PO SCH (10:10)
[2018-08-07] MEDS: ECOTRIN 81 MG PO SCH (10:10)
[2018-08-07 10:23] LABS: BLOOD UREA NITROGEN 12 mg/dL (9-20); CHLORIDE 109 mmol/L (98-107); Calcium 8.6 mg/dL (8.4-10.2); Carbon Dioxide 28 mmol/L (22-30); Creatinine 1 0.68 mg/dL (0.66-1.25); Glucose 104 mg/dL (74-106); Potassium 4.1 mmol/L (3.5-5.1); SODIUM 144 mmol/L (137-145)
[2018-08-07] MEDS: Flonase NASAL NS SCH (10:23)
[2018-08-07 11:49] VITALS: PULSE 61
[2018-08-07 12:08] VITALS: BP 170/72; O2SAT 91
--- NOTE | 2018-08-07 12:14 | PCM.DS ---
Discharge Summary Date of Admission: 08/05/18 22:07 Admitting Physician: NILAM ROSADO Primary Care Provider: GINNY STODDARD Allergies Allergies No Known Drug Allergies Allergy (Verified 08/05/18 19:11) Hospital Summary - Hospital Course Hospital Course: Chief Complaint Diagnosis shortness of breath for 2-3 days Allergies Allergy/AdvReac Type Severity Reaction Status Date / Time No Known Drug Allergies Allergy Verified 08/05/18 19:11 Vital Signs (Last 24 hours) Temp Pulse Resp BP Pulse Ox 08/07/18 12:07 98.8 F 61 20 170/72 91 L 08/07/18 11:39 61 18 93 L 08/07/18 07:52 98.4 F 65 20 185/83 90 L 08/07/18 07:27 60 18 90 L 08/07/18 05:31 97.8 F 71 22 188/66 90 L 08/07/18 01:01 98.0 F 72 20 113/58 90 L 08/07/18 00:00 19 08/06/18 21:00 98.0 F 62 19 120/57 89 L 08/06/18 20:00 19 08/06/18 18:53 64 16 92 L 08/06/18 16:06 98.1 F 69 18 132/62 92 L 08/06/18 16:00 18 08/06/18 15:33 80 20 08/06/18 13:11 99.0 F Home Medications Medication Instructions Recorded Confirmed Last Taken Type Budesonide 0.5 mg/2 ml 0.5 mg IH BID 08/05/18 08/05/18 08/05/18 07:00 History [Pulmicort 0.5 mg/2 ml Respules] Current Medications Generic Name Dose Route Start Last Admin Trade Name Freq PRN Reason Stop Dose Admin Albuterol Sulfate 2.5 mg 08/06/18 07:00 08/07/18 11:38 Proventil 2.5 Mg/3 Ml Neb IH 09/05/18 06:59 2.5 mg QIDRT KENDELL Administration Albuterol Sulfate 2.5 mg 08/05/18 23:59 08/05/18 23:58 Proventil 2.5 Mg/3 Ml Neb IH 09/04/18 23:58 2.5 mg Q2H PRN PRN Administration SHORTNESS OF BREATH/WHEEZING Aspirin 81 mg 08/06/18 13:00 08/07/18 10:10 Ecotrin 81 Mg PO 09/05/18 12:59 81 mg DAILY KENDELL Administration Budesonide 0.5 mg 08/06/18 07:00 08/07/18 07:27 Pulmicort 0.5 Mg/2 Ml Respules IH 09/05/18 06:59 0.5 mg BIDRT KENDELL Administration Fluticasone Propionate 0 gm 08/06/18 13:00 08/07/18 10:23 Flonase Nasal NS 09/05/18 12:59 16 gm DAILY KENDELL Administration Sodium Chloride 1,000 mls @ 30 mls/hr 08/05/18 21:00 08/07/18 05:36 Sodium Chloride 0.9% 1000 Ml IV 09/04/18 20:59 100 mls/hr .Q24H KENDELL Administration Azithromycin 500 mg in 250 mls @ 250 mls/hr 08/06/18 22:00 08/06/18 23:00 Zithromax 500 Mg/ 250 Ml Nacl Premix IV 09/05/18 21:59 250 mls/hr Q24H22 KENDELL Administration Ceftriaxone Sodium/Dextrose 1 g in 50 mls @ 100 mls/hr 08/06/18 22:00 22:05 Rocephin 1 Gm-D5w 50 Ml Bag IV 09/05/18 21:59 100 mls/hr Q24H22 KENDELL Administration Levothyroxine Sodium 75 mcg 08/06/18 13:00 08/07/18 06:29 Synthroid 75 Mcg PO 09/05/18 12:59 75 mcg 0700 KENDELL Administration Loratadine 10 mg 08/06/18 13:00 08/07/18 10:10 Claritin 10 Mg PO 09/05/18 12:59 10 mg DAILY KENDELL Administration Pantoprazole Sodium 40 mg 08/06/18 13:00 08/07/18 10:10 Protonix 40mg Tablet PO 09/05/18 12:59 40 mg DAILY KENDELL Administration Levetiracetam 100mg/ 10 each 08/06/18 13:00 08/07/18 10:02 Ml Soln. PO 09/05/18 12:59 10 each BID KENDELL Administration Phenytoin 125mg/5ml 4 each 08/06/18 13:00 08/07/18 10:03 Susp. PO 09/05/18 12:59 4 each BID KENDELL Administration Polyethylene Glycol 17 gm 08/06/18 13:00 08/07/18 10:02 Miralax Powder 17gm Packet PO 09/05/18 12:59 Not Given DAILY KENDELL Discontinued Medications Generic Name Dose Route Start Last Admin Trade Name Wicho PRN Reason Stop Dose Admin Albuterol Sulfate Confirm 08/05/18 23:51 Proventil 2.5 Mg/3 Ml Neb Administered 08/05/18 23:52 Dose 2.5 mg IH .STK-MED ONE Budesonide Confirm 08/05/18 23:51 Pulmicort 0.5 Mg/2 Ml Respules Administered 08/05/18 23:52 Dose 0.5 mg IH .STK-MED ONE Azithromycin 500 mg in 250 mls @ 250 mls/hr 08/05/18 20:43 08/05/18 21:15 Zithromax 500 Mg/ 250 Ml Nacl Premix IV 08/05/18 21:42 250 mls/hr STAT ONE 250 mls/hr Administration Ceftriaxone Sodium/Dextrose 1 g in 50 mls @ 100 mls/hr 08/05/18 20:43 20:57 Rocephin 1 Gm-D5w 50 Ml Bag IV 08/05/18 21:12 100 mls/hr STAT ONE 100 mls/hr Administration Ceftriaxone Sodium/Dextrose Confirm 08/05/18 20:45 Rocephin 1 Gm-D5w 50 Ml Bag Administered 08/05/18 20:46 Dose 1 g in 50 mls @ ud IV .STK-MED ONE Sodium Chloride 1,000 mls @ 100 mls/hr 08/05/18 21:00 Sodium Chloride 0.9% 1000 Ml IV 09/04/18 20:59 .Q10H KENDELL Azithromycin Confirm 08/05/18 21:10 Zithromax 500 Mg/ 250 Ml Nacl Premix Administered 08/05/18 21:11 Dose 500 mg in 250 mls @ ud IV .STK-MED ONE Influenza Virus Vaccine 180 mcg 08/07/18 10:00 08/07/18 11:53 Fluzone High-Dose 2018-19 Syr IM 08/07/18 10:01 180 mcg .ONCE ONE Administration Intake & Output (Last 24 hours) 08/05/18 08/06/18 08/07/18 08/08/18 11:59 11:59 11:59 11:59 Intake Total 960 1831 Balance 960 1831 Weight 46.2 kg Microbiology Results (Last 24 hours) 08/05/18 19:40 Blood Blood Culture Gram Stain - Pending 08/05/18 19:40 Blood Blood Culture - Preliminary NO GROWTH TO DATE 08/05/18 19:25 Blood Blood Culture Gram Stain - Pending 08/05/18 19:25 Blood Blood Culture - Preliminary NO GROWTH TO DATE 08/05/18 18:10 Urine, Void Urine Culture - Final NO GROWTH Laboratory Results (Last 24 hours) 08/07/18 08/07/18 09:40 09:40 WBC 4.1 RBC 4.03 L Hgb 13.1 Hct 39.4 L MCV 97.8 MCH 32.5 H MCHC 33.2 RDW 12.8 Plt Count 289 MPV 10.3 H Sodium 144 Potassium 4.1 Chloride 109 H Carbon Dioxide 28 Anion Gap 11.0 BUN 12 Creatinine 0.68 Estimated GFR > 60.0 Glucose 104 Calcium 8.6 Orders (Last 24 hours) Category Date Time Status Mechanical Soft Diet 08/06/18 Dinner Active CHEST 1 VIEW (PORTABLE) Urgent Exams 08/07/18 09:17 Completed BMP Urgent Lab 08/07/18 09:40 Completed CBC Urgent Lab 08/07/18 09:40 Completed Aspirin EC 81 mg [Ecotrin 81 mg] Med 08/06/18 13:00 Active 81 mg PO DAILY Azithromycin 500 mg/250 ml [Zithromax 500 MG/ 250 ML Med 08/06/18 22:00 Active NaCl Premix] 500 mg in 250 ml IV Q24H22 Ceftriaxone 1 GM/50 ML PREMIX* [ROCEPHIN 1 Gm-D5w 50 ml Med 08/06/18 22:00 Active Bag] 1 g in 50 ml IV Q24H22 Flu Vacc [id number](65Yr Up)/Pf [Fluzone High-Dose 2018- Med 08/07/18 10:00 Discontinued 19 Syr] 180 mcg IM .ONCE ONE Fluticasone Propionate [Flonase NASAL] Med 08/06/18 13:00 Active 0 gm NS DAILY Levothyroxine Sodium 75 Mcg [Synthroid 75 Mcg] Med 08/06/18 13:00 Active 75 mcg PO 0700 Loratadine 10 mg [Claritin 10 mg] Med 08/06/18 13:00 Active 10 mg PO DAILY PANTOPRAZOLE 40 mg Tablet [Protonix 40MG Tablet] Med 08/06/18 13:00 Active 40 mg PO DAILY Patient Own Med [Patient Own Medication] Med 08/06/18 13:00 Active 10 each PO BID Patient Own Med [Patient Own Medication] Med 08/06/18 13:00 Active 4 each PO BID Polyethylene Glycol 3350 17 gm [Miralax Powder 17GM Med 08/06/18 13:00 Active PACKET] 17 gm PO DAILY Patient Care Notes (Last 24 hours) 08/06/18 13:12 Nursing Note by Lucille Sharp Pt meds need medication given crushed and given in pudding. Liquid med to be given in syringe. Pt needed much encouragemnt to take medications. Pt felt warm to the touch checked temp via axillary 99.0F. Initialized on 08/06/18 13:12 - END OF NOTE 08/06/18 12:20 (created 08/06/18 15:10) Case Management Note by Sue Delacruz DR. ROUNDED AND EVALUATED, DISCUSSED TREATMENT PLAN WITH PT'S CAREGIVER AT BEDSIDE. ALL QUESTIONS ANSWERED. DISCUSSED LIKELIHOOD OF 1-2 MORE DAYS OF TREATMENT. PT'S CAREGIVER VERBALIZED UNDERSTANDING. NO ADDNL NEEDS IDENTIFIED AT PRESENT. WILL START MECHANICAL SOFT DIET AND DECREASE IVF TO 30CC/HR, CONTINUE IV ABX. WILL CONTINUE TO FOLLOW FOR ALL NEEDS. Initialized on 08/06/18 15:10 - END OF NOTE - Vitals & Intake/Output Vital Signs: Vital Signs Temperature 98.8 F 08/07/18 12:07 Pulse Rate 61 08/07/18 12:07 Respiratory Rate 20 08/07/18 12:07 Blood Pressure 170/72 08/07/18 12:07 O2 Sat by Pulse Oximetry 91 L 08/07/18 12:07 Intake & Output: Intake & Output 08/05/18 08/06/18 08/07/18 08/08/18 11:59 11:59 11:59 11:59 Intake Total 960 1831 Balance 960 1831 Weight 46.2 kg - Lab Result Diagrams: 08/07/18 09:40 08/07/18 09:40 Lab Results-Last 24 Hrs: Lab Results-Last 24 Hours 08/07/18 08/07/18 Range/Units 09:40 09:40 WBC 4.1 (4.0-10.5) K/mm3 RBC 4.03 L (4.1-5.6) M/mm3 Hgb 13.1 (12.5-18.0) gm/dl Hct 39.4 L (42-50) % MCV 97.8 (78-100) fl MCH 32.5 H (26-32) pg MCHC 33.2 (32-36) g/dl RDW 12.8 (11.5-14.0) % Plt Count 289 (150-450) K/mm3 MPV 10.3 H (6-9.5) fl Sodium 144 (137-145) mmol/L Potassium 4.1 (3.5-5.1) mmol/L Chloride 109 H (98-107) mmol/L Carbon Dioxide 28 (22-30) mmol/L Anion Gap 11.0 (5-15) MEQ/L BUN 12 (9-20) mg/dL Creatinine 0.68 (0.66-1.25) mg/dL Estimated GFR > 60.0 ML/MIN Glucose 104 (74-106) mg/dL Calcium 8.6 (8.4-10.2) mg/dL Micro Results-Entire Visit: Microbiology 08/05/18 19:40 Blood Culture - Preliminary Blood NO GROWTH TO DATE 08/05/18 19:25 Blood Culture - Preliminary Blood NO GROWTH TO DATE 08/05/18 18:10 Urine Culture - Final Urine, Void NO GROWTH - Radiology Exams Ordered Rad Exams-Entire Visit: Radiology Procedures Category Date Time Status CHEST 1 VIEW (PORTABLE) Stat Exams 08/05/18 19:34 Completed CHEST 1 VIEW (PORTABLE) Urgent Exams 08/07/18 09:17 Completed - Procedures and Test Procedures and Tests throughout Hospitalization: Therapy Orders & Screens 08/05/18 23:55 Respiratory Therapy Assessment DAILY Comment: Diagnosis: pneumonia Discharge Exam General Appearance: no apparent distress, alert Neurologic Exam: alert, oriented x 3, cooperative, normal mood/affect, nml cerebellar function, sensation nml, No motor deficits Skin Exam: normal color, warm, dry Eye Exam: PERRL, EOMI, eyes nml inspection Ears, Nose, Throat Exam: normal ENT inspection, pharynx normal, moist mucous membranes Neck Exam: normal inspection, non-tender, supple, full range of motion Respiratory Exam: normal breath sounds, lungs clear, No respiratory distress Cardiovascular Exam: regular rate/rhythm, normal heart sounds Gastrointestinal/Abdomen Exam: soft, No tenderness, No mass Extremity Exam: normal inspection, normal range of motion Back Exam: normal inspection, normal range of motion, No CVA tenderness, No vertebral tenderness Male Genitalia Exam: deferred Rectal Exam: deferred Final Diagnosis/Problem List - Final Discharge Diagnosis/Problem (1) Pneumonia Current Visit: Yes Status: Resolved Assessment & Plan: improving will send home with cephalexin 500 mg po qid for 7 days, repeat cxr in 1 week (2) UTI (urinary tract infection) Current Visit: Yes Status: Acute (3) COPD (chronic obstructive pulmonary disease) Current Visit: No Status: Chronic (4) History of seizure disorder Current Visit: No Status: Chronic - Discharge Discharge Date: 08/07/18 Disposition: Home, Self-Care Condition: Stable Prescriptions: New Cephalexin 250 mg/5 ml Susp [Keflex 250 mg/5 ml Susp] 500 mg PO QID #300 bottle No Action Albuterol 2.5 mg/0.5 ml [PROVENTIL Solution 2.5 MG/0.5 ML] 2.5 mg IH QID Fluticasone Propionate [Flonase] 16 gm NS DAILY Polyethylene Glycol 3350 17 gm [Miralax Powder 17GM PACKET] 17 gm PO DAILY Aspirin 81 mg PO DAILY Omeprazole [Prilosec] 20 mg PO DAILY Loratadine [Claritin] 10 mg PO DAILY Levothyroxine Sodium [Synthroid] 75 mcg PO 0700 Levetiracetam [Keppra] 1,000 mg PO BID Phenytoin Susp 125 mg/5 ml [Dilantin-125 SUSPENSION] 4 ml PO BID Budesonide 0.5 mg/2 ml [Pulmicort 0.5 mg/2 ml Respules] 0.5 mg IH BID Follow up with: GINNY STODDARD [Primary Care Provider] - 1 Week
== END 2018-08-07 13:38 | disposition home or self-care (01) | DRG 178 ==
LOC: ED 18:53 → MED SURG 22:07
PROVIDERS: ADMIT General Practice; ATTEND General Practice
DX: J69.0 Pneumonitis due to inhalation of food and vomit (principal); N39.0 Urinary tract infection, site not specified; Z79.899 Other long term (current) drug therapy; F02.80 Dementia in other diseases classified elsewhere, unspecified severity, without behavioral disturbance, psychotic disturbance, mood disturbance, and anxiety; G40.909 Epilepsy, unspecified, not intractable, without status epilepticus; F03.90 Unspecified dementia, unspecified severity, without behavioral disturbance, psychotic disturbance, mood disturbance, and anxiety; I10 Essential (primary) hypertension; J44.9 Chronic obstructive pulmonary disease, unspecified; G47.30 Sleep apnea, unspecified; E03.9 Hypothyroidism, unspecified; K21.9 Gastro-esophageal reflux disease without esophagitis; Q90.9 Down syndrome, unspecified
CPT/HCPCS: 36000; 36415; 71045; 80048; 80053; 81000; 83605; 85025; 85027; 87040; 87086; 94640; 94760; 96365; 96367; 96374; 96375; 99285; J7609; P9612; 90686; J0456; J0696; A9270-GY

== ENCOUNTER 2018-09-22 18:09 | Emergency (ER) | payer MEDICARE ==
--- NOTE | 2018-09-22 18:30 | ERPHSYRPT ---
- History of Present Illness Source: patient, family Patient Subjective Stated Complaint: pt arrived per wc with family. for abcess to scrotum last night,no fever Triage Nursing Assessment: pt has downs and has limited speech, alert, resp easy , skin w/d/p. has abcess nondraining to scrotum Hx Tetanus, Diphtheria Vaccination/Date Given: Yes Hx Influenza Vaccination/Date Given: Yes Hx Pneumococcal Vaccination/Date Given: Yes Immunizations Up to Date: Yes <LEANNE HERNÁNDEZ - Last Filed: 09/22/18 18:33> <AKUA SAINZ - Last Filed: 09/22/18 21:18> - History of Present Illness Time Seen by Provider: 09/22/18 18:26 Physician History: pt hx Downs Syn, seizures presents w/ one day hx left scrotal wound, occasional bleeding, no known injury, but pt limited speech hx, no fever, no NV (LEANNE HERNÁNDEZ) Allergies/Adverse Reactions: No Known Drug Allergies Allergy (Verified 09/22/18 18:22) Home Medications: Albuterol 2.5 mg/0.5 ml [PROVENTIL Solution 2.5 MG/0.5 ML] 2.5 mg IH QID 01/30/15 [History] Aspirin 81 mg PO DAILY 01/30/15 [History] Fluticasone Propionate [Flonase] 16 gm NS DAILY 01/30/15 [History] Levetiracetam [Keppra] 1,000 mg PO BID 01/30/15 [History] Levothyroxine Sodium [Synthroid] 75 mcg PO 0700 01/30/15 [History] Loratadine [Claritin] 10 mg PO DAILY 01/30/15 [History] Omeprazole [Prilosec] 20 mg PO DAILY 01/30/15 [History] Polyethylene Glycol 3350 17 gm [Miralax Powder 17GM PACKET] 17 gm PO DAILY [History] Phenytoin Susp 125 mg/5 ml [Dilantin-125 SUSPENSION] 4 ml PO BID 01/02/18 [History] Budesonide 0.5 mg/2 ml [Pulmicort 0.5 mg/2 ml Respules] 0.5 mg IH BID 03/19 [History] - Past Medical History Pertinent Past Medical History: Yes Neurological History: Dementia, Seizures, Other ENT History: No Pertinent History Cardiac History: Hypertension Respiratory History: COPD, Sleep Apnea Endocrine Medical History: Hypothyroidism Musculoskeletal History: No Pertinent History GI Medical History: GERD History: No Pertinent History Psycho-Social History: No Pertinent History Male Reproductive Disorders: No Pertinent History Other Medical History: ALLERGIES, Down Syndrome - Past Surgical History Past Surgical History: Yes Neuro Surgical History: No Pertinent History Cardiac: No Pertinent History Respiratory: No Pertinent History Gastrointestinal: No Pertinent History Genitourinary: No Pertinent History Musculoskeletal: No Pertinent History Male Surgical History: No Pertinent History Other Surgical History: TEETH REMOVED, toe growth removed, esophagus stretched - Social History Smoking Status: Never smoker Exposure to second hand smoke: No Drug Use: none Patient Lives Alone: No <LEANNE HERNÁNDEZ - Last Filed: 09/22/18 18:33> - Review of Systems Constitutional: No Fever Ears, Nose, & Throat: No Nose Congestion Respiratory: No Dyspnea Abdominal/Gastrointestinal: No Vomiting Genitourinary Symptoms: Testicle Pain Skin: Skin Lesions All Other Systems: Unable due to condition <LEANNE HERNÁNDEZ - Last Filed: 09/22/18 18:33> - Physical Exam General Appearance: no apparent distress Ears, Nose, Throat Exam: moist mucous membranes Neck Exam: supple Respiratory Exam: No respiratory distress Cardiovascular Exam: regular rate/rhythm Gastrointestinal/Abdomen Exam: soft Male Genital Exam: scrotum tenderness (L), scrotal swellling, uncircumcised Neurologic Exam: alert Skin Exam: other (no testicular mass, +2cm scrotal swelling and tender w/ ulcer nondraining) SpO2 Interpretation: normal SpO2: 98 Oxygen Delivery: Room Air <LEANNE HERNÁNDEZ - Last Filed: 09/22/18 18:33> - Nursing Vital Signs Nursing Vital Signs: Initial Vital Signs Temperature 97.9 F 09/22/18 18:15 Pulse Rate 66 09/22/18 18:15 Respiratory Rate 18 09/22/18 18:15 O2 Sat by Pulse Oximetry 98 09/22/18 18:15 Pain Scale Pain Intensity 0 - Course Nursing assessment & vital signs reviewed: Yes - CT Exams Abdomen/Pelvis CT Interpretation: Discussed w/radiologist (CT abdomen and pelvis: Impression: Marked fecal stasis with new rectal impactionn. Mild urinary bladder wall thickening. Either incomplete distention versus cystitis. Remaining pelvis including scrotum unremarkable) <AKUA SAINZ - Last Filed: 09/22/18 21:18> Ordered Tests: Active Orders 24 hr Category Date Time Status PELVIS WITHOUT CONTRAST [CT] Stat Exams 09/22/18 18:32 Taken CBC W DIFF Stat Lab 09/22/18 18:52 Completed CMP Stat Lab 09/22/18 18:52 Completed Lactic Acid Stat Lab 09/22/18 19:00 Completed UA W/RFX UR CULTURE Stat Lab 09/22/18 20:05 Completed Medication Summary Discontinued Medications Generic Name Dose Route Start Last Admin Trade Name Wicho PRN Reason Stop Dose Admin Clonidine 0.1 mg 09/22/18 18:41 09/22/18 18:51 Catapres 0.1 Mg PO 09/22/18 18:42 0.1 mg STAT ONE Administration Clonidine Confirm 09/22/18 18:50 Catapres 0.1 Mg Administered 09/22/18 18:51 Dose 0.1 mg .ROUTE .STK-MED ONE Lab/Rad Data: Laboratory Result Diagrams 09/22/18 18:52 09/22/18 18:52 Laboratory Results 09/22/18 09/22/18 09/22/18 Range/Units Unknown 20:05 19:00 WBC (4.0-10.5) K/mm3 RBC (4.1-5.6) M/mm3 Hgb (12.5-18.0) gm/dl Hct (42-50) % MCV (78-100) fl MCH (26-32) pg MCHC (32-36) g/dl RDW (11.5-14.0) % Plt Count (150-450) K/mm3 MPV (6-9.5) fl Gran % (36.0-66.0) % Eos # (Auto) (0-0.5) Absolute Lymphs (auto) (1.0-4.6) Absolute Monos (auto) (0.0-1.3) Lymphocytes % (24.0-44.0) % Monocytes % (0.0-12.0) % Eosinophils % (0.00-5.0) % Basophils % (0.0-0.4) % Absolute Granulocytes (1.4-6.9) Basophils # (0-0.4) Sodium (137-145) mmol/L Potassium (3.5-5.1) mmol/L Chloride (98-107) mmol/L Carbon Dioxide (22-30) mmol/L Anion Gap (5-15) MEQ/L BUN (9-20) mg/dL Creatinine (0.66-1.25) mg/dL Estimated GFR ML/MIN Glucose (74-106) mg/dL Lactic Acid 1.3 (0.4-2.0) Calcium (8.4-10.2) mg/dL Total Bilirubin (0.2-1.3) mg/dL AST (17-59) U/L ALT (0-50) U/L Alkaline Phosphatase (38-126) U/L Serum Total Protein (6.3-8.2) g/dL Albumin (3.5-5.0) g/dL Urine Color YELLOW (YELLOW) Urine Appearance CLEAR (CLEAR) Urine pH 6.0 (5-6) Ur Specific [place] 1.015 (1.005-1.025) Urine Protein NEGATIVE (Negative) Urine Ketones NEGATIVE (NEGATIVE) Urine Blood NEGATIVE (0-5) Red/ul Urine Nitrite NEGATIVE (NEGATIVE) Urine Bilirubin NEGATIVE (NEGATIVE) Urine Urobilinogen NORMAL (0-1) mg/dL Ur Leukocyte Esterase NEGATIVE (NEGATIVE) Urine Culture Reflexed NO (NO) Urine Glucose NEGATIVE (NEGATIVE) mg/dL Phenytoin 13.2 (10-20) ug/mL 09/22/18 09/22/18 Range/Units 18:52 18:52 WBC 5.2 (4.0-10.5) K/mm3 RBC 4.24 (4.1-5.6) M/mm3 Hgb 13.1 (12.5-18.0) gm/dl Hct 40.5 L (42-50) % MCV 95.5 (78-100) fl MCH 30.9 (26-32) pg MCHC 32.3 (32-36) g/dl RDW 13.2 (11.5-14.0) % Plt Count 295 (150-450) K/mm3 MPV 9.4 (6-9.5) fl Gran % 31.0 L (36.0-66.0) % Eos # (Auto) 0.31 (0-0.5) Absolute Lymphs (auto) 2.32 (1.0-4.6) Absolute Monos (auto) 0.86 (0.0-1.3) Lymphocytes % 44.9 H (24.0-44.0) % Monocytes % 16.6 H (0.0-12.0) % Eosinophils % 6.0 H (0.00-5.0) % Basophils % 1.5 (0.0-0.4) % Absolute Granulocytes 1.60 (1.4-6.9) Basophils # 0.08 (0-0.4) Sodium 137 (137-145) mmol/L Potassium 4.3 (3.5-5.1) mmol/L Chloride 102 (98-107) mmol/L Carbon Dioxide 28 (22-30) mmol/L Anion Gap 11.8 (5-15) MEQ/L BUN 19 (9-20) mg/dL Creatinine 0.71 (0.66-1.25) mg/dL Estimated GFR > 60.0 ML/MIN Glucose 91 (74-106) mg/dL Lactic Acid (0.4-2.0) Calcium 8.6 (8.4-10.2) mg/dL Total Bilirubin 0.20 (0.2-1.3) mg/dL AST 23 (17-59) U/L ALT 15 (0-50) U/L Alkaline Phosphatase 180 H (38-126) U/L Serum Total Protein 8.3 H (6.3-8.2) g/dL Albumin 3.8 (3.5-5.0) g/dL Urine Color (YELLOW) Urine Appearance (CLEAR) Urine pH (5-6) Ur Specific [place] (1.005-1.025) Urine Protein (Negative) Urine Ketones (NEGATIVE) Urine Blood (0-5) Red/ul Urine Nitrite (NEGATIVE) Urine Bilirubin (NEGATIVE) Urine Urobilinogen (0-1) mg/dL Ur Leukocyte Esterase (NEGATIVE) Urine Culture Reflexed (NO) Urine Glucose (NEGATIVE) mg/dL Phenytoin (10-20) ug/mL <LEANNE HERNÁNDEZ - Last Filed: 09/22/18 18:33> - Progress Progress: improved <AKUA SAINZ - Last Filed: 09/22/18 21:18> - Progress Progress Note: 09/22/18 18:[address] Sainz (LEANNE HERNÁNDEZ) 09/22/18 20:26 This is a 68-year-old white male with history of dementia, seizures, high blood pressure, COPD, sleep apnea, hypothyroidism, GERD, Down syndrome, positive him patient is initially seen by Dr. Hernández she was brought secondary to his scrotal wound occasional bleeding with no known injury. Patient has chronic limited speech and he is not happy with me seeing him right now. Past medical history includes dementia, seizures, high blood pressure, COPD, sleep apnea, hypothyroidism, GERD, Down syndrome past surgical history includes teeth removed, toe growth removed and esophageal stretching. Patient's physical examination well-developed well-nourished white male obvious sequela of Down syndrome. He is alert active. Head is atraumatic normocephalic. Eyes PERRLA EOMI fundi are unremarkable. Ears TMs richards intact bilaterally. Nose is clear. Throat is clear. Neck is supple. Lungs are clear. Heart regular rate and rhythm without murmur. Abdomen soft nontender nondistended positive bowel sounds. Genitalia left scrotum with approximately 1 cm somewhat raised area with central 2 mm area which is bleeding tender with palpation. Extremities full range of motion pulse equal symmetrical 2 over 4. Neuro cranial nerves II through XII are intact DTRs symmetrical 2 over 4 patient is alert. Labs CT abdomen marked fecal stasis with new rectal impaction. Mild urinary bladder wall thickening. Either incomplete distention versus cystitis. Remaining pelvis including scrotum unremarkable Lactic acid is 1.3 CBC White blood cell 5.2 hemoglobin 13.1 hematocrit 40.5 platelets 295 chemistry 137 potassium 4.3 chloride 102 bicarbonate 28 BUN 19 creatinine 0.71 glucose 91 Dilantin 13.2 urinalysis is pending Vital temperature 97.9 pulse 66 respiration 18 blood pressure 98 blood pressure initially 200/80 now 147/75 Impression small mass left scrotum possible abscess High blood pressure Plan the small mass on the patient's left scrotum does not appear to be anything that can be excised at this time would consider antibiotics. Will consider Dulcolax suppositories for the patient's constipation. Will discuss case with Dr. Rosado. Case discussed with Dr. Rosado will place patient on Dulcolax suppositories and antibiotics \Patient to follow-up with Dr. Rosado caregiver to contact his office for an appointment. 09/22/18 21:15 (AKUA SAINZ) <LEANNE HERNÁNDEZ - Last Filed: 09/22/18 18:33> - Departure Time of Disposition: 21:16 Departure Disposition: Home Critical Care Time: No <AKUA SAINZ - Last Filed: 09/22/18 21:18> - Departure Clinical Impression: Scrotal lesion, rule out abscess Condition: Fair Referrals: NILAM ORSADO MD [Primary Care Provider] - Additional Instructions: Return home. Bactrim DS one orally twice a day for 10 days. Bacitracin to area daily until healed. Follow-up with Dr. Rosado. Dulcolax suppositories one WA when necessary no stool in 48 hours. Return for acute distress or for severe symptoms. Prescriptions: Smz/Tmp Ds Tablet [Bactrim Ds Tablet] 1 tab PO BID #20 tablet
[2018-09-22] MEDS ORDERED: Catapres 0.1 MG ONE (18:50)
[2018-09-22] MEDS: Catapres 0.1 MG PO ONE (18:51)
[2018-09-22 18:56] LABS: BASOPHIL % 1.5 % (0.0-0.4); Basophil (Absolute #) 0.08 (0-0.4); Eosinophil (Absolute #) 0.31 (0-0.5); Hematocrit 40.5 % (42-50); Hemoglobin 13.1 gm/dl (12.5-18.0); Lymphocyte (Absolute #) 2.32 (1.0-4.6); Lymphocytes % 44.9 % (24.0-44.0); Mean Cell Volume 95.5 fl (78-100); Mean Corpuscular Hemoglobin 30.9 pg (26-32); Mean Corpuscular Hgb Concent. 32.3 g/dl (32-36); Mean Platelet Volume 9.4 fl (6-9.5); Monocyte (Absolute #) 0.86 (0.0-1.3); Monocytes % 16.6 % (0.0-12.0); Platelet Count 295 K/mm3 (150-450); Red Blood Count 4.24 M/mm3 (4.1-5.6); Red Cell Distribution Width 13.2 % (11.5-14.0); White Blood Count 5.2 K/mm3 (4.0-10.5)
[2018-09-22 19:15] LABS: ALBUMIN 3.8 g/dL (3.5-5.0); ALKALINE PHOSPHATASE 180 U/L (38-126); ANION GAP 11.8 MEQ/L (5-15); BLOOD UREA NITROGEN 19 mg/dL (9-20); CHLORIDE 102 mmol/L (98-107); Calcium 8.6 mg/dL (8.4-10.2); Carbon Dioxide 28 mmol/L (22-30); Creatinine 1 0.71 mg/dL (0.66-1.25); Glucose 91 mg/dL (74-106); Potassium 4.3 mmol/L (3.5-5.1); SGOT/AST 23 U/L (17-59); SGPT/ALT 15 U/L (0-50); SODIUM 137 mmol/L (137-145); Total Protein 8.3 g/dL (6.3-8.2)
[2018-09-22 19:22] VITALS: PULSE 59; O2SAT 99
[2018-09-22 20:22] LABS: Appearance CLEAR (CLEAR); Bilirubin NEGATIVE (NEGATIVE); Blood NEGATIVE Ery/ul (0-5); Glucose NEGATIVE (NEGATIVE); Ketones NEGATIVE (NEGATIVE); Leukocyte Esterase NEGATIVE (NEGATIVE); Nitrite NEGATIVE (NEGATIVE); Protein,Urine Dip NEGATIVE (Negative); Specific Gravity 1.015 (1.005-1.025); Urobilinogen NORMAL mg/dL (0-1)
[2018-09-22 20:56] VITALS: BP 138/71
[2018-09-22] MEDS ORDERED: BACTRIM DS TABLET PO ONE (21:25)
[2018-09-22] MEDS: BACTRIM DS TABLET PO ONE (21:27)
--- NOTE | 2018-09-23 08:49 | XRAY ---
Indication: Scrotal swelling/blister. Multiple contiguous axial images obtained through the pelvis only without contrast as ordered. Comparison: March 01, 2018. Again marked scattered colonic fecal debris with now rectal impaction. No free fluid/air. Urinary bladder nominally distended with mild circumferential wall thickening either incomplete distention versus cystitis. Noncontrasted vessels unremarkable. Visualized scrotum unremarkable for noncontrast exam. Again a few prominent bilateral inguinal lymph nodes, largest on the left measuring 1.4 x 1.4 cm presumed reactive. Osseous structures intact again with mild lower lumbar degenerative changes and small heterotopic ossification anterior to the right hip joint. Impression: 1. Again fecal stasis with new rectal impaction. 2. Mild urinary bladder wall thickening either due to incomplete distention versus cystitis. Correlate clinically. 3. Borderline prominent bilateral inguinal lymph nodes presumed reactive. 4. Remaining CT pelvis without contrast exam unremarkable. CT DI 12.33
== END 2018-09-22 21:35 | disposition home or self-care (01) ==
LOC: ED 18:09
DX: N50.9 Disorder of male genital organs, unspecified (principal); F03.90 Unspecified dementia, unspecified severity, without behavioral disturbance, psychotic disturbance, mood disturbance, and anxiety; G40.909 Epilepsy, unspecified, not intractable, without status epilepticus; G47.30 Sleep apnea, unspecified; E03.9 Hypothyroidism, unspecified; K21.9 Gastro-esophageal reflux disease without esophagitis; Q90.9 Down syndrome, unspecified
CPT/HCPCS: 36415; 72192; 80053; 80185; 81001; 83605; 85025; 99284; A9270-GY

== ENCOUNTER 2019-01-01 09:05 | Emergency (ER) | payer MEDICARE ==
--- NOTE | 2019-01-01 09:34 | ERPHSYRPT ---
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 He has a history of Down syndrome and seizure disorder. He typically is postictal for 15 hours after seizure. Yesterday he had a fever, nausea, vomiting, and diarrhea. Today he still has a fever. He vomited after the seizure. They've been given him Tylenol and ibuprofen for his fever. He takes Keppra and Dilantin for his seizures. He did receive an influenza vaccination in September of this year. He has a cough this morning. His past medical history significant for Down's syndrome, seizure disorder, COPD , pneumonia, and UTI. Pt sees Dr Rosado. Caregiver would like to take pt back home if possible after treatment. Timing/Duration: yesterday, gradual onset, worse Severity: moderate Modifying Factors: Improves With: acetaminophen, ibuprofen Associated Symptoms: nausea, vomiting, cough, fever, seizure Allergies/Adverse Reactions: No Known Drug Allergies Allergy (Verified 01/01/19 10:13) Home Medications: Albuterol 2.5 mg/0.5 ml [PROVENTIL Solution 2.5 MG/0.5 ML] 2.5 mg IH QID 01/30/15 [History] Aspirin 81 mg PO DAILY 01/30/15 [History] Fluticasone Propionate [Flonase] 16 gm NS DAILY 01/30/15 [History] Levetiracetam [Keppra] 1,000 mg PO BID 01/30/15 [History] Levothyroxine Sodium [Synthroid] 75 mcg PO 0700 01/30/15 [History] Loratadine [Claritin] 10 mg PO DAILY 01/30/15 [History] Omeprazole [Prilosec] 20 mg PO DAILY 01/30/15 [History] Polyethylene Glycol 3350 17 gm [Miralax Powder 17GM PACKET] 17 gm PO DAILY [History] Phenytoin Susp 125 mg/5 ml [Dilantin-125 SUSPENSION] 4 ml PO BID 01/02/18 [History] Budesonide 0.5 mg/2 ml [Pulmicort 0.5 mg/2 ml Respules] 0.5 mg IH BID 03/19 [History] Hx Tetanus, Diphtheria Vaccination/Date Given: Yes Hx Influenza Vaccination/Date Given: Yes Hx Pneumococcal Vaccination/Date Given: Yes - Review of Systems Constitutional: Fever Eyes: No Symptoms Ears, Nose, & Throat: No Symptoms Respiratory: Cough Cardiac: No Chest Pain, No Edema, No Syncope Abdominal/Gastrointestinal: Nausea, Vomiting, Diarrhea Genitourinary Symptoms: No Dysuria Musculoskeletal: No Back Pain, No Neck Pain Skin: No Rash Neurological: Seizure Psychological: No Symptoms Endocrine: No Symptoms Hematologic/Lymphatic: No Symptoms Immunological/Allergic: No Symptoms All Other Systems: Reviewed and Negative - Past Medical History Pertinent Past Medical History: Yes Neurological History: Dementia, Seizures, Other ENT History: No Pertinent History Cardiac History: Hypertension Respiratory History: COPD, Sleep Apnea Endocrine Medical History: Hypothyroidism Musculoskeletal History: No Pertinent History GI Medical History: GERD History: No Pertinent History Psycho-Social History: No Pertinent History Male Reproductive Disorders: No Pertinent History Other Medical History: ALLERGIES, Down Syndrome - Past Surgical History Past Surgical History: Yes Neuro Surgical History: No Pertinent History Cardiac: No Pertinent History Respiratory: No Pertinent History Gastrointestinal: No Pertinent History Genitourinary: No Pertinent History Musculoskeletal: No Pertinent History Male Surgical History: No Pertinent History Other Surgical History: TEETH REMOVED, toe growth removed, esophagus stretched - Social History Smoking Status: Never smoker Exposure to second hand smoke: No Drug Use: none Patient Lives Alone: No - Nursing Vital Signs Nursing Vital Signs: Initial Vital Signs Temperature 100.4 F 01/01/19 09:22 Pulse Rate 71 01/01/19 09:22 Respiratory Rate 16 01/01/19 09:22 Blood Pressure 85/46 01/01/19 09:22 O2 Sat by Pulse Oximetry 91 L 01/01/19 09:22 Pain Scale Pain Intensity 0 - Physical Exam General Appearance: other (post ictal) Eye Exam: PERRL/EOMI, eyes nml inspection Ears, Nose, Throat Exam: normal ENT inspection, TMs normal, pharynx normal, moist mucous membranes Neck Exam: normal inspection, non-tender, supple, full range of motion Respiratory Exam: normal breath sounds, lungs clear, No respiratory distress Cardiovascular Exam: regular rate/rhythm, normal heart sounds, normal peripheral pulses Gastrointestinal/Abdomen Exam: soft, normal bowel sounds, No tenderness, No mass Rectal Exam: not done Back Exam: normal inspection, normal range of motion, No CVA tenderness, No vertebral tenderness Extremity Exam: normal inspection, normal range of motion, pelvis stable Neurologic Exam: other (asleep) Skin Exam: normal color, warm, dry, No rash Lymphatic Exam: No adenopathy SpO2 Interpretation: borderline oxygenation SpO2: 95 O2 Delivery: Nasal Cannula - Course EKG Interpreted by Me: RATE, Sinus Rhythm, NORMAL AXIS, NORMAL INTERVALS, NORMAL QRS, NORMAL ST-T, Other (no change in EKG from 03/01/18.) - CT Exams Chest CT Interpretation: Tele-radiologist Report (per Dr Lowry), Other (diffuse bilateral airspace disease with right effusion) Abdomen/Pelvis CT Interpretation: Tele-radiologist Report (per Dr Lowry), Other (marked worsening diffuse fecal stasis with now rectal impaction.) Ordered Tests: Active Orders 24 hr Category Date Time Status Clean Catch Urine Specimen STAT Care 01/01/19 09:45 Active EKG-ER Only STAT Care 01/01/19 09:45 Active IV Insertion STAT Care 01/01/19 09:45 Active Oxygen-ED Only Nasal Cannula 3 lpm Care 01/01/19 09:45 Active Pulse Oximetry (ED) STAT Care 01/01/19 09:45 Active Seizure Precautions -SCCHED STAT Care 01/01/19 09:45 Active ABDOMEN AND PELVIS W/0 CONTRAS [CT] Stat Exams 01/01/19 09:47 Completed CHEST WITHOUT CONTRAST [CT] Stat Exams 01/01/19 09:47 Completed BLOOD CULTURE Stat Lab 01/01/19 10:45 Received BMP Stat Lab 01/01/19 09:45 Completed CBC W DIFF Stat Lab 01/01/19 09:45 Completed CULTURE,URINE Stat Lab 01/01/19 09:45 Received Lactic Acid Stat Lab 01/01/19 10:00 Results Manual Differential NC Stat Lab 01/01/19 09:45 Completed UA W/RFX UR CULTURE Stat Lab 01/01/19 09:45 Completed Medication Summary Discontinued Medications Generic Name Dose Route Start Last Admin Trade Name Freq PRN Reason Stop Dose Admin Sodium Chloride Confirm 01/01/19 09:37 Sodium Chloride 0.9% 1000 Ml Administered 01/01/19 09:38 Dose 1,000 mls @ ud .ROUTE .STK-MED ONE Sodium Chloride 1,000 mls @ 999 mls/hr 01/01/19 09:45 01/01/19 09:54 Sodium Chloride 0.9% 1000 Ml IV 01/01/19 10:45 999 mls/hr .Q1H1M STA Administration Ondansetron HCl Confirm 01/01/19 09:37 Zofran 4 Mg/2 Ml Vial Administered 01/01/19 09:38 Dose 4 mg .ROUTE .STK-MED ONE Ondansetron HCl 4 mg 01/01/19 09:45 01/01/19 09:54 Zofran 4 Mg/2 Ml Vial IV 01/01/19 09:46 4 mg STAT ONE Administration Lab/Rad Data: Laboratory Result Diagrams 01/01/19 09:45 01/01/19 09:45 Laboratory Results 01/01/19 01/01/19 01/01/19 Range/Units Unknown 10:30 10:00 WBC (4.0-10.5) K/mm3 RBC (4.1-5.6) M/mm3 Hgb (12.5-18.0) gm/dl Hct (42-50) % MCV (78-100) fl MCH (26-32) pg MCHC (32-36) g/dl RDW (11.5-14.0) % Plt Count (150-450) K/mm3 MPV (6-9.5) fl Sodium (137-145) mmol/L Potassium (3.5-5.1) mmol/L Chloride (98-107) mmol/L Carbon Dioxide (22-30) mmol/L Anion Gap (5-15) MEQ/L BUN (9-20) mg/dL Creatinine (0.66-1.25) mg/dL Estimated GFR ML/MIN Glucose (74-106) mg/dL Lactic Acid 2.4 H (0.4-2.0) Calcium (8.4-10.2) mg/dL Urine Color (YELLOW) Urine Appearance (CLEAR) Urine pH (5-6) Ur Specific [place] (1.005-1.025) Urine Protein (Negative) Urine Ketones (NEGATIVE) Urine Blood (0-5) Red/ul Urine Nitrite (NEGATIVE) Urine Bilirubin (NEGATIVE) Urine Urobilinogen (0-1) mg/dL Ur Leukocyte Esterase (NEGATIVE) Urine WBC (Auto) (0-5) /HPF Urine RBC (Auto) (0-2) /HPF U Epithel Cells (Auto) (FEW) /HPF Urine Bacteria (Auto) (NEGATIVE) /HPF Urine Culture Reflexed (NO) Urine Glucose (NEGATIVE) mg/dL Phenytoin 8.8 L (10-20) ug/mL Influenza Type A Ag POSITIVE (NEGATIVE) Influenza Type B Ag NEGATIVE (NEGATIVE) RSV (PCR) NEGATIVE (Negative) 01/01/19 01/01/19 01/01/19 Range/Units 09:45 09:45 09:45 WBC 11.8 H (4.0-10.5) K/mm3 RBC 3.96 L (4.1-5.6) M/mm3 Hgb 12.2 L (12.5-18.0) gm/dl Hct 37.9 L (42-50) % MCV 95.7 (78-100) fl MCH 30.8 (26-32) pg MCHC 32.2 (32-36) g/dl RDW 15.2 H (11.5-14.0) % Plt Count 169 (150-450) K/mm3 MPV 10.0 H (6-9.5) fl Sodium 138 (137-145) mmol/L Potassium 4.3 (3.5-5.1) mmol/L Chloride 104 (98-107) mmol/L Carbon Dioxide 22 (22-30) mmol/L Anion Gap 16.7 H (5-15) MEQ/L BUN 31 H (9-20) mg/dL Creatinine 1.77 H (0.66-1.25) mg/dL Estimated GFR 40.9 ML/MIN Glucose 86 (74-106) mg/dL Lactic Acid (0.4-2.0) Calcium 8.7 (8.4-10.2) mg/dL Urine Color YELLOW (YELLOW) Urine Appearance TURBID (CLEAR) Urine pH 5.0 (5-6) Ur Specific [place] 1.012 (1.005-1.025) Urine Protein 100 (Negative) Urine Ketones NEGATIVE (NEGATIVE) Urine Blood MODERATE (0-5) Red/ul Urine Nitrite NEGATIVE (NEGATIVE) Urine Bilirubin NEGATIVE (NEGATIVE) Urine Urobilinogen NEGATIVE (0-1) mg/dL Ur Leukocyte Esterase SMALL (NEGATIVE) Urine WBC (Auto) >100 (0-5) /HPF Urine RBC (Auto) 26-50 (0-2) /HPF U Epithel Cells (Auto) RARE (FEW) /HPF Urine Bacteria (Auto) MANY (NEGATIVE) /HPF Urine Culture Reflexed YES (NO) Urine Glucose NEGATIVE (NEGATIVE) mg/dL Phenytoin (10-20) ug/mL Influenza Type A Ag (NEGATIVE) Influenza Type B Ag (NEGATIVE) RSV (PCR) (Negative) - Progress Progress: improved Counseled pt/family regarding: lab results, diagnosis, need for follow-up, rad results - Departure Time of Disposition: 11:44 Departure Disposition: Home Clinical Impression: Influenza A, Seizure, UTI (urinary tract infection), Dilantin level too low Condition: Stable Critical Care Time: No Referrals: NILAM ROSADO MD [Primary Care Provider] - Additional Instructions: You have a UTI and an influenza A infection. This is caused a seizure. Your Dilantin level is mildly low. This should clear up as you continue your medication as prescribed. You were given Zofran 4 mg, Rocephin 1 g, and fluids by IV in the ER. Take ciprofloxacin 500 mg 2 times a day for 7 days. Take Zofran 4 mg ODT every 6 hours as needed for nausea and vomiting. Take Tamiflu 75 mg 2 times a day for 5 days. Influenza A infections typically take 5-7 days to run their course. Stay well-hydrated. Take Tylenol 1000 mg and ibuprofen 800 mg every 8 hours as needed. Follow-up with your primary medical doctor in one to 2 days. Prescriptions: Ondansetron ODT 4 MG [Zofran Odt 4 mg] 4 mg PO Q6H PRN PRN #10 tab.rapdis PRN Reason: Nausea/Vomiting Ciprofloxacin HCl [Cipro] 500 mg PO BID #14 tablet Oseltamivir Phosphate [Tamiflu] 75 mg PO BID #10 capsule
[2019-01-01] MEDS ORDERED: Zofran 4 MG/2 ML VIAL ONE (09:37)
[2019-01-01] MEDS ORDERED: Sodium Chloride 0.9% 1000 ML 1,000 ML ONE (09:37)
[2019-01-01 09:43] VITALS: O2SAT 95
[2019-01-01] MEDS ORDERED: Sodium Chloride 0.9% 1000 ML 1,000 ML IV STA (09:45)
[2019-01-01] MEDS ORDERED: Zofran 4 MG/2 ML VIAL IV ONE (09:45)
[2019-01-01 10:04] LABS: Lactic Acid 2.4 (0.4-2.0)
[2019-01-01 10:30] LABS: Appearance TURBID (CLEAR); Bacteria MANY /HPF (NEGATIVE); Bilirubin NEGATIVE (NEGATIVE); Blood MODERATE Ery/ul (0-5); Epithelial Cells RARE /HPF (FEW); Glucose NEGATIVE (NEGATIVE); Ketones NEGATIVE (NEGATIVE); Leukocyte Esterase SMALL (NEGATIVE); Nitrite NEGATIVE (NEGATIVE); Protein,Urine Dip 100 (Negative); RBC 26-50 /HPF (0-2); Specific Gravity 1.012 (1.005-1.025); Urobilinogen NEGATIVE mg/dL (0-1); WBC >100 /HPF (0-5)
[2019-01-01 10:37] LABS: Hematocrit 37.9 % (42-50); Hemoglobin 12.2 gm/dl (12.5-18.0); Mean Cell Volume 95.7 fl (78-100); Mean Corpuscular Hemoglobin 30.8 pg (26-32); Mean Corpuscular Hgb Concent. 32.2 g/dl (32-36); Platelet Count 169 K/mm3 (150-450); Red Blood Count 3.96 M/mm3 (4.1-5.6); Red Cell Distribution Width 15.2 % (11.5-14.0); White Blood Count 11.8 K/mm3 (4.0-10.5)
--- NOTE | 2019-01-01 10:37 | XRAY ---
Indication: Nausea, vomiting, and fever. Multiple contiguous axial images obtained through the chest without contrast. Comparison: None Study slightly degraded by respiration artifact. Diffuse bilateral patchy airspace disease with small right effusion and mild bibasilar dependent atelectasis. Small left lower lobe calcified granuloma. Heart is not enlarged. Aorta is normal in course and caliber. Small hilar calcified nodes. No pathologic mediastinal lymphadenopathy. Small hiatal hernia. Bony thorax intact with mild degenerative changes throughout the spine. CT abdomen reported separately. Impression: 1. Diffuse bilateral airspace disease with right effusion. 2. Small hiatal hernia and evidence for old granulomatous disease. CT DI 12.64
--- NOTE | 2019-01-01 10:40 | XRAY ---
Indication: Fever, nausea, and vomiting. Multiple contiguous axial images obtained through the abdomen and pelvis without contrast as ordered. Comparison: March 01, 2018. CT chest reported separately. Noncontrasted stomach and small bowel loops appear nonobstructed. Again there is significant diffuse scattered colonic fecal debris throughout with new rectal impaction. No free fluid/air. Stable hepatic/splenic calcified granulomas. Remaining liver, gallbladder, pancreas, spleen, adrenal glands, kidneys, ureters, and bladder appear unremarkable for noncontrast exam. Again minimal aortoiliac calcifications without AAA. Osseous structures intact again with mild diffuse degenerative spondylosis and mild levorotoscoliosis. Impression: 1. Marked worsening diffuse fecal stasis with now rectal impaction. 2. Stable small hiatal hernia and evidence for old granulomatous disease. CT DI 14.46
[2019-01-01 10:42] LABS: ANION GAP 16.7 MEQ/L (5-15); Calcium 8.7 mg/dL (8.4-10.2); Creatinine 1 1.77 mg/dL (0.66-1.25); Potassium 4.3 mmol/L (3.5-5.1)
[2019-01-01 11:23] LABS: INFLUENZA A POSITIVE (NEGATIVE); INFLUENZA B NEGATIVE (NEGATIVE); RESPIRATORY SYNCTIAL VIRUS NEGATIVE (Negative)
[2019-01-01] MEDS ORDERED: ROCEPHIN 1 Gm-D5w 50 ml Bag** 1 G/50 ML IVPB IV STA (11:43)
[2019-01-01] MEDS ORDERED: ROCEPHIN 1 Gm-D5w 50 ml Bag** 1 G/50 ML IVPB IV ONE (11:53)
[2019-01-01 13:06] VITALS: BP 85/40; PULSE 70
[2019-01-01 13:09] LABS: BAND 29 % (0.0-2.0); Lymphocytes 3 % (24-44); Monocyte 2 % (0.0-12.0); Neutrophils 66 % (36.-66.); Platelet Estimate NORMAL (NORMAL); Total Cells Counted 100
== END 2019-01-01 13:07 | disposition home or self-care (01) ==
LOC: ED 09:05
DX: J10.1 Influenza due to other identified influenza virus with other respiratory manifestations (principal); G40.909 Epilepsy, unspecified, not intractable, without status epilepticus; N39.0 Urinary tract infection, site not specified; F03.90 Unspecified dementia, unspecified severity, without behavioral disturbance, psychotic disturbance, mood disturbance, and anxiety; Z79.899 Other long term (current) drug therapy; I10 Essential (primary) hypertension; J44.9 Chronic obstructive pulmonary disease, unspecified; G47.30 Sleep apnea, unspecified; E03.9 Hypothyroidism, unspecified; K21.9 Gastro-esophageal reflux disease without esophagitis; Q90.9 Down syndrome, unspecified
CPT/HCPCS: 36000; 36415; 71250; 74176; 80048; 80177; 80185; 81001; 83605; 85025; 87040; 87077; 87086; 87631; 93005; 96360; 96365; 96374; 96375; 99284; J0696; J2405

== ENCOUNTER 2019-01-03 14:16 | Emergency (ER) | payer MEDICARE ==
[2019-01-03] MEDS ORDERED: DUONEB 0.5-3 MG/3 ml Neb IH ONE ×4 (14:40→18:52)
[2019-01-03] MEDS ORDERED: Zithromax 500 MG/ 250 ML NaCl Premix 500 MG/250 ML IVPB IV STA (14:40)
[2019-01-03] MEDS ORDERED: solu-MEDROL 125 MG IV ONE (14:40)
[2019-01-03] MEDS ORDERED: ROCEPHIN 1 Gm-D5w 50 ml Bag** 1 G/50 ML IVPB IV STA (14:40)
[2019-01-03] MEDS ORDERED: Sodium Chloride 0.9% 1000 ML 1,000 ML IV STA (14:40)
[2019-01-03 14:52] LABS: A-aADO2 195; ABG POTASSIUM 4.3 (3.5-5.1); ARTERIAL BLD GAS O2 SATURATION 99.4 % (95-100); ARTERIAL BLOOD GAS BASE EXCESS -3.7 (-2.0-2.0); ARTERIAL BLOOD GAS FIO2 50 %; ARTERIAL BLOOD GAS PCO2 42 mmHg (35-45); ARTERIAL BLOOD GAS PO2 109 mmHg (75-100); ARTERIAL BLOOD GAS pH 7.33 (7.35-7.45); CARBOXYHEMOGLOBIN 1.9 % THgb (0.0-6.9); HCO3- 22.1 (22-28); HGB O2 SAT 96.2 g/dF (94-100); Lactic Acid 1.5 (0.4-2.0); Methhemoglobin 1.2 % (1.4-1.5); paO2 pAO1 0.36
[2019-01-03 14:53] LABS: ABG SITE LEFT BRACHIAL
[2019-01-03] MEDS ORDERED: Sodium Chloride 0.9% 1000 ML 1,000 ML ONE (15:07)
[2019-01-03] MEDS ORDERED: Zithromax 500 MG/ 250 ML NaCl Premix 500 MG/250 ML IVPB IV ONE (15:10)
[2019-01-03] MEDS ORDERED: solu-MEDROL 125 MG ONE (15:10)
[2019-01-03] MEDS ORDERED: ROCEPHIN 1 Gm-D5w 50 ml Bag** 1 G/50 ML IVPB IV ONE (15:10)
[2019-01-03 15:36] LABS: Hematocrit 36.3 % (42-50); Hemoglobin 11.6 gm/dl (12.5-18.0); Mean Cell Volume 97.3 fl (78-100); Mean Platelet Volume 10.5 fl (6-9.5); Platelet Count 193 K/mm3 (150-450); Red Blood Count 3.73 M/mm3 (4.1-5.6); Red Cell Distribution Width 15.6 % (11.5-14.0); White Blood Count 9.8 K/mm3 (4.0-10.5)
[2019-01-03 15:42] LABS: ALBUMIN 3.6 g/dL (3.5-5.0); ANION GAP 15.9 MEQ/L (5-15); BILIRUBIN,TOTAL 0.8 mg/dL (0.2-1.3); Calcium 8.1 mg/dL (8.4-10.2); Creatinine 1 2.44 mg/dL (0.66-1.25)
[2019-01-03] MEDS ORDERED: PROVENTIL 2.5 MG/3 ML NEB IH ONE ×2 (16:08→16:09)
[2019-01-03 18:28] VITALS: BP 147/87
--- NOTE | 2019-01-03 18:34 | ERPHSYRPT ---
- History of Present Illness Source: patient Exam Limitations: clinical condition, other (Dementia and down syndrome) Patient Subjective Stated Complaint: caregiver states since being dx with flu two days ago patient has worsended with breathing and had congested breathing since last night. states has not had a fever since . Triage Nursing Assessment: to room per w/c. skin warm, dry. resp labored with coarse breath sounds. patient is alert but is very ill appearing. is nonverbal normally. Physician History: Pt is a 68 y/o male with a h/o down syndrome and dementia that was diagnosed with Influenza 2-3 days ago. Pt's condition deteriorated and he became more and more SOB, and his niece brought him to the ER. Pt is very confused and SOB , and can't give any ROS at this point. Timing/Duration: day(s) Cough Quality/Degree: productive cough Modifying Factors: Improves With: nothing Associated Symptoms: wheezing International travel in last 2 weeks: No Allergies/Adverse Reactions: No Known Drug Allergies Allergy (Verified 01/03/19 15:23) Home Medications: Albuterol 2.5 mg/0.5 ml [PROVENTIL Solution 2.5 MG/0.5 ML] 2.5 mg IH QID 01/30/15 [History] Aspirin 81 mg PO DAILY 01/30/15 [History] Fluticasone Propionate [Flonase] 16 gm NS DAILY 01/30/15 [History] Levetiracetam [Keppra] 1,000 mg PO BID 01/30/15 [History] Levothyroxine Sodium [Synthroid] 75 mcg PO 0700 01/30/15 [History] Loratadine [Claritin] 10 mg PO DAILY 01/30/15 [History] Omeprazole [Prilosec] 20 mg PO DAILY 01/30/15 [History] Polyethylene Glycol 3350 17 gm [Miralax Powder 17GM PACKET] 17 gm PO DAILY [History] Phenytoin Susp 125 mg/5 ml [Dilantin-125 SUSPENSION] 4 ml PO BID 01/02/18 [History] Budesonide 0.5 mg/2 ml [Pulmicort 0.5 mg/2 ml Respules] 0.5 mg IH BID 03/19 [History] Hx Tetanus, Diphtheria Vaccination/Date Given: No Hx Influenza Vaccination/Date Given: Yes Hx Pneumococcal Vaccination/Date Given: Yes - Review of Systems Constitutional: Lethargy, Malaise Respiratory: Cough, Cyanosis, Dyspnea, Wheezing Abdominal/Gastrointestinal: No Abdominal Pain, No Nausea, No Vomiting, No Diarrhea - Past Medical History Pertinent Past Medical History: Yes Neurological History: Dementia, Seizures, Other ENT History: No Pertinent History Cardiac History: Hypertension Respiratory History: COPD, Sleep Apnea Endocrine Medical History: Hypothyroidism Musculoskeletal History: No Pertinent History GI Medical History: GERD History: No Pertinent History Psycho-Social History: No Pertinent History Male Reproductive Disorders: No Pertinent History Other Medical History: ALLERGIES, Down Syndrome - Past Surgical History Past Surgical History: Yes Neuro Surgical History: No Pertinent History Cardiac: No Pertinent History Respiratory: No Pertinent History Gastrointestinal: No Pertinent History Genitourinary: No Pertinent History Musculoskeletal: No Pertinent History Male Surgical History: No Pertinent History Other Surgical History: TEETH REMOVED, toe growth removed, esophagus stretched - Social History Smoking Status: Never smoker Exposure to second hand smoke: Yes Drug Use: none Patient Lives Alone: No - Nursing Vital Signs Nursing Vital Signs: Initial Vital Signs Temperature 99.4 F 01/03/19 15:06 Pulse Rate 82 01/03/19 15:06 Respiratory Rate 24 01/03/19 15:06 Blood Pressure 148/68 01/03/19 15:06 O2 Sat by Pulse Oximetry 84 L 01/03/19 15:06 Pain Scale Pain Intensity 0 - Physical Exam General Appearance: severe distress, lethargy Respiratory Exam: respiratory distress, accessory muscle use, rhonchi, wheezing Cardiovascular Exam: regular rate/rhythm, normal heart sounds Gastrointestinal/Abdomen Exam: soft, No tenderness SpO2: 97 - Course Nursing assessment & vital signs reviewed: Yes - CT Exams Chest CT Interpretation: Other (Multifocal PNA, mucous plugging. Hydronephrosis on the L.) Ordered Tests: Active Orders 24 hr Category Date Time Status Belt Splicer STAT Care 01/03/19 14:42 Active Oxygen-ED Only Nasal Cannula 3 lpm Care 01/03/19 14:40 Active CHEST WITHOUT CONTRAST [CT] Stat Exams 01/03/19 17:06 Taken ARTERIAL BLOOD GASES Stat Lab 01/03/19 14:40 Completed BLOOD CULTURE Stat Lab 01/03/19 15:20 Received CBC W DIFF Stat Lab 01/03/19 14:45 Completed CMP Stat Lab 01/03/19 14:45 Completed D-DIMER QUANTITATION Stat Lab 01/03/19 14:45 Completed Lactic Acid Stat Lab 01/03/19 14:40 Completed Manual Differential NC Stat Lab 01/03/19 14:45 Completed Respiratory Therapy Assessment DAILY RT 01/03/19 15:09 Completed Respiratory Therapy Assessment DAILY RT 01/03/19 16:10 Completed Respiratory Therapy Assessment DAILY RT 01/03/19 18:55 Active Medication Summary Discontinued Medications Generic Name Dose Route Start Last Admin Trade Name Freq PRN Reason Stop Dose Admin Albuterol Sulfate 2.5 mg 01/03/19 16:09 01/03/19 16:11 Proventil 2.5 Mg/3 Ml Neb IH 01/03/19 16:10 2.5 mg STAT ONE Administration Albuterol Sulfate Confirm 01/03/19 16:08 Proventil 2.5 Mg/3 Ml Neb Administered 01/03/19 16:09 Dose 2.5 mg IH .STK-MED ONE Albuterol/Ipratropium Confirm 01/03/19 14:40 Duoneb 0.5-3 Mg/3 Ml Neb Administered 01/03/19 14:41 Dose 3 ml IH .STK-MED ONE Albuterol/Ipratropium 3 ml 01/03/19 14:45 01/03/19 15:11 Duoneb 0.5-3 Mg/3 Ml Neb IH 01/03/19 14:46 3 ml STAT ONE Administration Albuterol/Ipratropium 3 ml 01/03/19 18:52 Duoneb 0.5-3 Mg/3 Ml Neb IH 01/03/19 18:53 STAT ONE Albuterol/Ipratropium Confirm 01/03/19 18:51 Duoneb 0.5-3 Mg/3 Ml Neb Administered 01/03/19 18:52 Dose 3 ml IH .STK-MED ONE Ceftriaxone Sodium/Dextrose 1 g in 50 mls @ 100 mls/hr 01/03/19 14:40 15:43 Rocephin 1 Gm-D5w 50 Ml Bag IV 01/03/19 15:09 Infused STAT STA Infusion Sodium Chloride 1,000 mls @ 999 mls/hr 01/03/19 14:40 01/03/19 16:13 Sodium Chloride 0.9% 1000 Ml IV 01/03/19 15:40 Infused .Q1H1M STA Infusion Azithromycin 500 mg in 250 mls @ 250 mls/hr 01/03/19 14:40 01/03/19 17:49 Zithromax 500 Mg/ 250 Ml Nacl Premix IV 01/03/19 15:39 Infused STAT STA Infusion Sodium Chloride Confirm 01/03/19 15:07 Sodium Chloride 0.9% 1000 Ml Administered 01/03/19 15:08 Dose 1,000 mls @ ud .ROUTE .STK-MED ONE Azithromycin Confirm 01/03/19 15:10 Zithromax 500 Mg/ 250 Ml Nacl Premix Administered 01/03/19 15:11 Dose 500 mg in 250 mls @ ud IV .STK-MED ONE Ceftriaxone Sodium/Dextrose Confirm 01/03/19 15:10 Rocephin 1 Gm-D5w 50 Ml Bag Administered 01/03/19 15:11 Dose 1 g in 50 mls @ ud IV .STK-MED ONE Methylprednisolone Sodium Succinate 125 mg 01/03/19 14:40 01/03/19 15:12 Solu-Medrol 125 Mg IV 01/03/19 14:41 125 mg STAT ONE Administration Methylprednisolone Sodium Succinate Confirm 01/03/19 15:10 Solu-Medrol 125 Mg Administered 01/03/19 15:11 Dose 125 mg .ROUTE .STK-MED ONE Lab/Rad Data: Laboratory Result Diagrams 01/03/19 14:45 01/03/19 14:45 Laboratory Results 01/03/19 01/03/19 01/03/19 Range/Units 14:45 14:45 14:45 WBC 9.8 (4.0-10.5) K/mm3 RBC 3.73 L (4.1-5.6) M/mm3 Hgb 11.6 L (12.5-18.0) gm/dl Hct 36.3 L (42-50) % MCV 97.3 (78-100) fl MCH 31.0 (26-32) pg MCHC 32.0 (32-36) g/dl RDW 15.6 H (11.5-14.0) % Plt Count 193 (150-450) K/mm3 MPV 10.5 H (6-9.5) fl D-Dimer 1998 H* (215-500) ng/mL Puncture Site pCO2 (35-45) mmHg pO2 (75-100) mmHg Base Excess (-2.0-2.0) O2 Saturation (94-100) g/dF ABG pH (7.35-7.45) ABG HCO3 (22-28) ABG O2 Sat (Measured) (95-100) % Kaden Test A-a Gradient a/A Ratio Hemoglobin Carboxyhemoglobin (0.0-6.9) % THgb Methemoglobin (1.4-1.5) % Potassium 5.0 (3.5-5.1) Temperature C POC O2 Flow Rate % Sodium 140 (137-145) mmol/L Chloride 106 (98-107) mmol/L Carbon Dioxide 23 (22-30) mmol/L Anion Gap 15.9 H (5-15) MEQ/L BUN 57 H (9-20) mg/dL Creatinine 2.44 H (0.66-1.25) mg/dL Estimated GFR 28.2 ML/MIN Glucose 110 H (74-106) mg/dL Lactic Acid (0.4-2.0) Calcium 8.1 L (8.4-10.2) mg/dL Total Bilirubin 0.80 (0.2-1.3) mg/dL AST 55 (17-59) U/L ALT 30 (0-50) U/L Alkaline Phosphatase 303 H (38-126) U/L Serum Total Protein 8.0 (6.3-8.2) g/dL Albumin 3.6 (3.5-5.0) g/dL 01/03/19 Range/Units 14:40 WBC (4.0-10.5) K/mm3 RBC (4.1-5.6) M/mm3 Hgb (12.5-18.0) gm/dl Hct (42-50) % MCV (78-100) fl MCH (26-32) pg MCHC (32-36) g/dl RDW (11.5-14.0) % Plt Count (150-450) K/mm3 MPV (6-9.5) fl D-Dimer (215-500) ng/mL Puncture Site LEFT BRACHIAL pCO2 42 (35-45) mmHg pO2 109 H (75-100) mmHg Base Excess -3.7 L (-2.0-2.0) O2 Saturation 96.2 (94-100) g/dF ABG pH 7.33 L (7.35-7.45) ABG HCO3 22.1 (22-28) ABG O2 Sat (Measured) 99.4 (95-100) % Kaden Test NOT APPLICABLE A-a Gradient 195 a/A Ratio 0.36 Hemoglobin 12.0 Carboxyhemoglobin 1.9 (0.0-6.9) % THgb Methemoglobin 1.2 L (1.4-1.5) % Potassium 4.3 (3.5-5.1) Temperature 37.0 C POC O2 Flow Rate 50 % Sodium (137-145) mmol/L Chloride (98-107) mmol/L Carbon Dioxide (22-30) mmol/L Anion Gap (5-15) MEQ/L BUN (9-20) mg/dL Creatinine (0.66-1.25) mg/dL Estimated GFR ML/MIN Glucose (74-106) mg/dL Lactic Acid 1.5 (0.4-2.0) Calcium (8.4-10.2) mg/dL Total Bilirubin (0.2-1.3) mg/dL AST (17-59) U/L ALT (0-50) U/L Alkaline Phosphatase (38-126) U/L Serum Total Protein (6.3-8.2) g/dL Albumin (3.5-5.0) g/dL - Progress Progress: unchanged Air Movement: poor Progress Note: 01/03/19 18:41 Pt was brought to the ED by his niece. He got Solu Medrol IV, nebs, Rocephin and Zithromax, but he did not improve, and multiple nebs did not improve his condition. Dr Spangler was contacted, and she asked that pt will be transferred to [facility]. Pt will be placed on Bipap. 01/03/19 18:58 Blood Culture(s) Obtained: Yes Antibiotics given: Yes Discussed with .: Adrianne Spangler Will see patient in: other (Transfer to [facility].) - Departure Time of Disposition: 18:56 Departure Disposition: Transfer ([facility]) Clinical Impression: PNA (pneumonia), Influenza B, MARCE (acute kidney injury), Hydronephrosis, Influenza Condition: Critical Critical Care Time: Yes Critical Care Time(excluding separately billable procedures): 30-74 minutes Referrals: NILAM ROSADO MD [Primary Care Provider] -
[2019-01-03 19:21] VITALS: PULSE 90; O2SAT 96
[2019-01-03 19:30] LABS: Eosinophil 1 % (0.00-3.0); Lymphocytes 17 % (24-44); Monocyte 9 % (0.0-12.0); Neutrophils 73 % (36.-66.); Platelet Estimate NORMAL (NORMAL); Total Cells Counted 100
--- NOTE | 2019-01-03 19:31 | XRAY ---
Indication: Respiratory distress. Multiple contiguous axial images obtained through the chest without contrast as ordered. Comparison: January 01, 2019. Study again slightly degraded by respiration artifact. Lungs again demonstrates diffuse bilateral patchy airspace disease with now multifocal consolidations greatest in both lower lobes. Stable small right effusion. No large left effusion. Heart is not enlarged. Aorta is normal in course and caliber. Stable hilar calcified nodes. No pathologic mediastinal lymphadenopathy. Stable small hiatal hernia. Bony thorax intact again with mild degenerative changes throughout the spine. Limited upper abdomen again demonstrates diffuse colonic fecal debris. Impression: 1. Worsening diffuse bilateral airspace disease with now multifocal consolidations. Stable right effusion. 2. Stable hiatal hernia and fecal stasis. Comment: Preliminary interpretation was made by [facility]. No critical discrepancy. CTDI 9.35
== END 2019-01-03 19:24 | disposition short-term general hospital (02) ==
LOC: ED 14:16
DX: J18.9 Pneumonia, unspecified organism (principal); J10.1 Influenza due to other identified influenza virus with other respiratory manifestations; N17.9 Acute kidney failure, unspecified; N13.30 Unspecified hydronephrosis; G40.909 Epilepsy, unspecified, not intractable, without status epilepticus; F03.90 Unspecified dementia, unspecified severity, without behavioral disturbance, psychotic disturbance, mood disturbance, and anxiety; I10 Essential (primary) hypertension; J44.9 Chronic obstructive pulmonary disease, unspecified; G47.30 Sleep apnea, unspecified; E03.9 Hypothyroidism, unspecified; K21.9 Gastro-esophageal reflux disease without esophagitis; Q90.9 Down syndrome, unspecified; Z79.899 Other long term (current) drug therapy
CPT/HCPCS: 36000; 36415; 36600; 71250; 80053; 82375; 82803; 83605; 85025; 85379; 87040; 93041; 94640; 96360; 96365; 96374; 99285; J0456; J0696; J2930; J7609; A9270-GY